=== PATIENT | male | born 1995 | race Caucasian/White ===

== ENCOUNTER 2017-07-30 21:41 | Emergency (ER) | payer BC, OTHER ==
--- NOTE | 2017-07-30 22:34 | XR ---
EXAMINATION TYPE: XR chest 2V DATE OF EXAM: 07/30/2017 COMPARISON: NONE HISTORY: Cough and congestion TECHNIQUE: Frontal and lateral views of the chest are obtained. FINDINGS: Heart and mediastinum are normal. Lungs are clear. Diaphragm is normal. Bony thorax appear s normal. IMPRESSION: Normal chest
--- NOTE | 2017-07-30 22:38 | ED ---
URI HPI - General Chief Complaint: Upper Respiratory Infection Stated Complaint: RAMON Time Seen by Provider: 07/30/17 22:00 Source: patient, RN notes reviewed, old records reviewed Mode of arrival: ambulatory Limitations: no limitations - History of Present Illness Initial Comments: This patient is a 22-year-old male presents emergency Department chief complaint of episodes of when he "forgets to breathe". Patient reports that he seems like he'll have an episode where he stops breathing and then his body will "kick in". Patient states that he also occasionally will have some difficulty swallowing however he states he has no sore throat. He states that the symptoms only last for a few minutes and then they will go away. Upon further questioning patient's mother and patient state that he does regularly smoke synthetic marijuana, K2. He thinks that his symptoms could be related to his smoking marijuana. Patient states he has a history of anxiety. He has never followed up with a counselor or on any medications for this. Patient states that he smokes 2 however relief of his anxiety. He states that he was concerned with these episodes of forgetting to breathe that he felt like he needed to come to the emergency department. He states he has no chest pain, at this time he denies any shortness of breath. - Related Data Home Medications Medication Instructions Recorded Confirmed No Known Home Medications [No 07/30/17 07/30/17 Known Home Medications] Allergies Allergy/AdvReac Type Severity Reaction Status Date / Time No Known Allergies Allergy Verified 07/30/17 22:23 Review of Systems ROS Statement: Those systems with pertinent positive or pertinent negative responses have been documented in the HPI. ROS Other: All systems not noted in ROS Statement are negative. Past Medical History Past Medical History: No Reported History History of Any Multi-Drug Resistant Organisms: None Reported Past Surgical History: Hernia Repair, Orthopedic Surgery Past Psychological History: No Psychological Hx Reported Smoking Status: Current some day smoker Past Alcohol Use History: Occasional Past Drug Use History: Marijuana General Exam - General Exam Comments Initial Comments: This is a 22 year old male, no distress. Limitations: no limitations General appearance: alert, in no apparent distress Head exam: Present: atraumatic, normocephalic, normal inspection Eye exam: Present: normal appearance, PERRL, EOMI. Absent: scleral icterus, conjunctival injection, periorbital swelling ENT exam: Present: normal exam, mucous membranes moist Neck exam: Present: normal inspection. Absent: tenderness, meningismus, lymphadenopathy Respiratory exam: Present: normal lung sounds bilaterally. Absent: respiratory distress, wheezes, rales, rhonchi, stridor Cardiovascular Exam: Present: regular rate, normal rhythm, normal heart sounds. Absent: systolic murmur, diastolic murmur, rubs, gallop, clicks Extremities exam: Present: normal inspection, full ROM, normal capillary refill. Absent: tenderness, pedal edema, joint swelling, calf tenderness Back exam: Present: normal inspection Neurological exam: Present: alert, oriented X3, CN II-XII intact Psychiatric exam: Present: normal affect, normal mood Skin exam: Present: warm, dry, intact, normal color. Absent: rash Course Vital Signs 07/30/17 07/30/17 21:50 23:22 Temperature 97.8 F 97.4 F L Pulse Rate 95 86 Respiratory 18 16 Rate Blood Pressure 144/91 142/89 O2 Sat by Pulse 100 98 Oximetry Medical Decision Making - Medical Decision Making This patient is a 22-year-old male presents emergency Department chief complaint of episodes of when he "forgets to breathe". Patient reports that he seems like he'll have an episode where he stops breathing and then his body will "kick in". Patient states that he also occasionally will have some difficulty swallowing however he states he has no sore throat. He states that the symptoms only last for a few minutes and then they will go away. Upon further questioning patient's mother and patient state that he does regularly smoke synthetic marijuana, K2. He denies any chest pain or SOB at this time. Patient lungs are clear, and heart has normal rhythm and no murmur. Patient informed of likely a psychosocial issue to drug use. Patient CXR is normal. Normal EKG. Patient offered to see psych services, and he refuses. He states he smokes for his anxiety. Dsicussed followin up with PCP and psychiatrist. All questions answered and return parameters discussed. - Lab Data Lab Results 07/30/17 Range/Units 22:38 Urine Opiates Screen Not Detected (NotDetected) Ur Oxycodone Screen Not Detected (NotDetected) Urine Methadone Screen Not Detected (NotDetected) Ur Propoxyphene Screen Not Detected (NotDetected) Ur Barbiturates Screen Not Detected (NotDetected) U Tricyclic Antidepress Not Detected (NotDetected) Ur Phencyclidine Scrn Not Detected (NotDetected) Ur Amphetamines Screen Not Detected (NotDetected) U Methamphetamines Scrn Not Detected (NotDetected) U Benzodiazepines Scrn Not Detected (NotDetected) Urine Cocaine Screen Not Detected (NotDetected) U Marijuana (THC) Screen Not Detected (NotDetected) 07/30/17 23:10 EKG shows normal sinus rhythm with sinus arrhythmia, normal EKG noted. Ventricular rate of 69 bpm. AK interval 170 ms. QRS duration 106 most seconds. QT QTc is 380/470 ms. No evidence of ST elevation or T-wave inversion. No signs of atrial or ventricular arrhythmias. - Radiology Data Radiology results: report reviewed CXR is normal. Disposition Clinical Impression: Dyspnea, History of marijuana use Disposition: HOME SELF-CARE Condition: Good Instructions: Dyspnea (ED) Additional Instructions: Patient should follow-up with primary care provider I also suggest outpatient counseling services. Return to emergency department if any alarming signs or symptoms occur. Referrals: Taina Diallo DO [Primary Care Provider] - 1-2 days Time of Disposition: 23:11
[2017-07-30 22:55] LABS: Amphetamine Screen,Urine Not Detected (NotDetected); Barbiturate Screen,Urine Not Detected (NotDetected); Benzodiazepines Screen,Urine Not Detected (NotDetected); Cocaine Screen,Urine Not Detected (NotDetected); Methadone Screen, Urine Not Detected (NotDetected); Opiate Screen,Urine Not Detected (NotDetected); Oxycodone Screen, Urine Not Detected (NotDetected); Phencyclidine Screen,Urine Not Detected (NotDetected); Tricyclic Antidepressant,Urine Not Detected (NotDetected); Urn Cannabinoid Scrn Not Detected (NotDetected)
[2017-07-30 23:24] VITALS: BP 142/89; PULSE 86; RESP 16; TEMP 97.4
== END 2017-07-30 23:24 | disposition home or self-care (01) ==
LOC: EC 21:41
DX: R06.00 Dyspnea, unspecified (principal); I49.8 Other specified cardiac arrhythmias; F12.90 Cannabis use, unspecified, uncomplicated; R13.10 Dysphagia, unspecified; F17.200 Nicotine dependence, unspecified, uncomplicated
CPT/HCPCS: 71046; 80306; 93005; 99284

== ENCOUNTER → 2017-11-12 | Outpatient (CLI) | payer BC, OTHER ==
--- NOTE | 2017-11-12 18:37 | CT ---
EXAMINATION TYPE: CT brain wo con DATE OF EXAM: 11/12/2017 COMPARISON: NONE HISTORY: Patient complains of hallucinations prior to falling asleep. CT DLP: 1121 mGycm. Automated Exposure Control for Dose Reduction was Utilized. TECHNIQUE: CT scan of the head is performed without contrast. FINDINGS: Ventricles of normal size. There is no mass effect nor midline shift. There is no sign of intracranial hemorrhage. The calvarium is intact. Impression new. Negative CT scan of the brain.
== END ==
LOC: RADCTMAIN 17:56
PROVIDERS: ATTEND Family Medicine
DX: G47.00 Insomnia, unspecified (principal); R44.3 Hallucinations, unspecified
CPT/HCPCS: 70450

== ENCOUNTER 2019-01-23 10:49 | Observation (INO) | payer BC, OTHER ==
--- NOTE | 2019-01-23 11:13 | ED ---
General Adult HPI - General Chief complaint: Psychiatric Symptoms Stated complaint: suicidal Time Seen by Provider: 01/23/19 11:01 Source: patient, family, RN notes reviewed Mode of arrival: ambulatory Limitations: no limitations - History of Present Illness Initial comments: Patient is a pleasant 23-year-old male presenting to the emergency Department with complaints of reported depression and suicidal thoughts. Patient states he is only here because his family make some come here. Patient denies being depressed or having suicidal thoughts. Patient denies making any suicidal statements. This is his statement to me and front of his family members. Shortly after this PATIENT'S brother and mother states that this is not correct. They state that he did make suicidal statements to his brother last night as well as to the mother this morning. Mother also adds that patient told nursing staff he wanted to jump off a high building. Patient states he drinks alcohol frequently secondary to have problems with air passage through his nose. Patient states it does seem to help him in the short-term. Patient has seen ENT for this previously. Patient does admit to striking his nose on a cabinet earlier because he was frustrated. Patient admits to having hallucinations at times. Patient states sometimes he hears voices coming from humidifier. Patient also sometimes sees faces when he looks outside. No new physical complaints. Patient does have a history of smoking spice urinary half ago and believe that caused some damage. No street drugs otherwise since that time. - Related Data Home Medications Medication Instructions Recorded Confirmed No Known Home Medications 07/30/17 01/23/19 Allergies Allergy/AdvReac Type Severity Reaction Status Date / Time No Known Allergies Allergy Verified 01/23/19 11:56 Review of Systems ROS Statement: Those systems with pertinent positive or pertinent negative responses have been documented in the HPI. ROS Other: All systems not noted in ROS Statement are negative. Constitutional: Denies: fever Eyes: Denies: eye pain ENT: Reports: congestion. Denies: ear pain Respiratory: Denies: cough Cardiovascular: Denies: chest pain Endocrine: Denies: fatigue Gastrointestinal: Denies: abdominal pain Genitourinary: Denies: dysuria Musculoskeletal: Denies: back pain Skin: Denies: rash Neurological: Denies: weakness Past Medical History Past Medical History: No Reported History History of Any Multi-Drug Resistant Organisms: None Reported Past Surgical History: Hernia Repair, Orthopedic Surgery Past Psychological History: No Psychological Hx Reported Smoking Status: Current some day smoker Past Alcohol Use History: Occasional Past Drug Use History: Heroin, Marijuana, Opiates General Exam Limitations: no limitations General appearance: alert, in no apparent distress Head exam: Present: atraumatic Eye exam: Present: normal appearance, PERRL, nystagmus ENT exam: Present: normal oropharynx, other (Nasal abrasion without tenderness or swelling.) Neck exam: Present: normal inspection. Absent: tenderness Respiratory exam: Present: normal lung sounds bilaterally Cardiovascular Exam: Present: regular rate, normal rhythm GI/Abdominal exam: Present: soft. Absent: tenderness Extremities exam: Present: normal inspection Neurological exam: Present: alert, CN II-XII intact. Absent: motor sensory deficit Expanded Neurological exam: Present: protecting the airway Speech: Present: fluid speech Cranial nerves: EOM's Intact: Normal Motor strength exam: RUE: 5, LUE: 5, RLE: 5, LLE: 5 Psychiatric exam: Present: normal affect Skin exam: Present: normal color, abrasion (Small nasal abrasion) Course Vital Signs 01/23/19 10:54 Temperature 98.5 F Pulse Rate 115 H Respiratory 20 Rate Blood Pressure 174/90 O2 Sat by Pulse 99 Oximetry Medical Decision Making - Medical Decision Making Alcohol level 316. Case was discussed with Dr. Cortes, covering for Dr. Diallo, who will admit. - Lab Data Lab Results 01/23/19 Range/Units 11:00 Urine Opiates Screen Not Detected (NotDetected) Ur Oxycodone Screen Not Detected (NotDetected) Urine Methadone Screen Not Detected (NotDetected) Ur Propoxyphene Screen Not Detected (NotDetected) Ur Barbiturates Screen Not Detected (NotDetected) U Tricyclic Antidepress Not Detected (NotDetected) Ur Phencyclidine Scrn Not Detected (NotDetected) Ur Amphetamines Screen Not Detected (NotDetected) U Methamphetamines Scrn Not Detected (NotDetected) U Benzodiazepines Scrn Not Detected (NotDetected) Urine Cocaine Screen Not Detected (NotDetected) U Marijuana (THC) Screen Detected H (NotDetected) Disposition Clinical Impression: Depression, Suicidal ideation, Alcohol intoxication Disposition: ADMITTED IP TO THIS HOSP Is patient prescribed a controlled substance at d/c from ED?: No Referrals: Taina Diallo DO [Primary Care Provider] - 1-2 days Decision Time: 12:23
[2019-01-23 11:38] LABS: Amphetamine Screen,Urine Not Detected (NotDetected); Barbiturate Screen,Urine Not Detected (NotDetected); Benzodiazepines Screen,Urine Not Detected (NotDetected); Cocaine Screen,Urine Not Detected (NotDetected); Methadone Screen, Urine Not Detected (NotDetected); Opiate Screen,Urine Not Detected (NotDetected); Oxycodone Screen, Urine Not Detected (NotDetected); Phencyclidine Screen,Urine Not Detected (NotDetected); Tricyclic Antidepressant,Urine Not Detected (NotDetected); Urn Cannabinoid Scrn Detected (NotDetected)
[2019-01-23] MEDS ORDERED: NALOXONE 0.4 MG/ML 1 ML VIAL IV PRN (12:23)
[2019-01-23] MEDS ORDERED: LORazepam 2 MG/ML INJ IV PRN ×3 (12:29)
[2019-01-23] MEDS ORDERED: LORazepam 1 MG TAB PO STA (12:29)
[2019-01-23] MEDS ORDERED: LORazepam 2 MG/ML INJ IM STA (12:33)
[2019-01-23] MEDS ORDERED: ZIPRASIDONE 20 MG VIAL IM STA (12:43)
--- NOTE | 2019-01-23 12:53 | ED ---
Medical Decision Making - Lab Data Lab Results 01/23/19 Range/Units 11:00 Urine Opiates Screen Not Detected (NotDetected) Ur Oxycodone Screen Not Detected (NotDetected) Urine Methadone Screen Not Detected (NotDetected) Ur Propoxyphene Screen Not Detected (NotDetected) Ur Barbiturates Screen Not Detected (NotDetected) U Tricyclic Antidepress Not Detected (NotDetected) Ur Phencyclidine Scrn Not Detected (NotDetected) Ur Amphetamines Screen Not Detected (NotDetected) U Methamphetamines Scrn Not Detected (NotDetected) U Benzodiazepines Scrn Not Detected (NotDetected) Urine Cocaine Screen Not Detected (NotDetected) U Marijuana (THC) Screen Detected H (NotDetected) Disposition Clinical Impression: Depression, Suicidal ideation, Alcohol intoxication Disposition: ADMITTED IP TO THIS [facility] Is patient prescribed a controlled substance at d/c from ED?: No Procedures - Restraint - Face to Face Restraint Occurrence 1 Patient's Immediate Situation: Endangers self safety, Endangers others' safety, Endangers staff safety, Violent behavior Patient's Reaction to the Intervention: Fearful Patient's Medical & Behavioral Condition: Awake, Alert Need to Continue or Terminate Restraint or Seclusion: Continue Face to Face Eval of Restraint Date: 01/23/19 Face to Face Eval of Restraint Time: 12:53
[2019-01-23 13:09] LABS: Basophils # (A) 0.1 k/uL (0-0.2); Basophils % (A) 1 %; Eosinophils # (A) 0.1 k/uL (0-0.7); Eosinophils % (A) 1 %; HCT 50.6 % (39.0-53.0); HGB 16.6 gm/dL (13.0-17.5); Lymphocytes # (A) 4.1 k/uL (1.0-4.8); Lymphocytes % (A) 27 %; MCHC 32.9 g/dL (31.0-37.0); MCV 91.2 fL (80.0-100.0); Mean Platelet Volume 8.7; Monocytes # (A) 0.6 k/uL (0-1.0); Monocytes % (A) 4 %; Neutrophils # (A) 10.1 k/uL (1.3-7.7); Neutrophils % (A) 65 %; Platelet Count 307 k/uL (150-450); RBC 5.55 m/uL (4.30-5.90); WBC 15.5 k/uL (3.8-10.6)
[2019-01-23 13:19] LABS: ALT 308 U/L (21-72); AST 182 U/L (17-59); African American GFR (CKD) >90 (>60 ml/min/1.73 sqM); Albumin 5.4 g/dL (3.5-5.0); Alkaline Phosphatase 91 U/L (38-126); Anion Gap 28 mmol/L; Blood Urea Nitrogen 13 mg/dL (9-20); Calcium 9.3 mg/dL (8.4-10.2); Carbon Dioxide 14 mmol/L (22-30); Chloride 102 mmol/L (98-107); Glucose 95 mg/dL (74-99); Potassium 3.9 mmol/L (3.5-5.1); Sodium 144 mmol/L (137-145); Total Bilirubin 0.5 mg/dL (0.2-1.3); Total Protein 9.2 g/dL (6.3-8.2)
[2019-01-23] MEDS: THIAMINE 100 MG TAB PO SCH ×2 (19:07→19:08)
[2019-01-24] MEDS: THIAMINE 100 MG TAB PO SCH (07:48)
--- NOTE | 2019-01-24 13:38 | P.HPIM ---
History of Present Illness H&P Date: 01/23/19 Chief Complaint: suicidal Jose Francisco Ballard is a 23 yo M who is brought in to the ED today after repeatedly banging his head against a window at home and voicing thoughts about ending his life. Pt is currently sedated and asleep, history per chart review and mother at bedside. Mother states that pt told his brother that he didn't see the purpose in living and wanted to end his life. He became frustrated and had been drinking heavily so started to bang his head against a cabinet and window. He is a frequent drinker and mom bribed him with vodka to come in to the hospital. Pt has no diagnosed psychiatric history but mom states that is because he won't go to a doctor to discuss and he has always been very withdrawn and expressed that he feels his life is meaningless. Pt did endorse hallucinations to nursing staff in the ED. On arrival vitals stable, UDS positive for THC and blood alcohol 300. Pt did become agitated upon being told he was being kept in the hospital and required one dose of geodon. Review of Systems ROS unobtainable: due to mental status Past Medical History Past Medical History: No Reported History History of Any Multi-Drug Resistant Organisms: None Reported Past Surgical History: Hernia Repair, Orthopedic Surgery Additional Past Surgical History / Comment(s): right arm surgery. hernia repair as a child. undescended testicle as a child Past Anesthesia/Blood Transfusion Reactions: No Reported Reaction Past Psychological History: No Psychological Hx Reported Smoking Status: Never smoker Past Alcohol Use History: Heavy Additional Past Alcohol Use History / Comment(s): has history of poly substance abuse. per Past Drug Use History: Heroin, Marijuana, Opiates - Past Family History Mother Family Medical History: Diabetes Mellitus Additional Family Medical History / Comment(s): family history on maternal side of diabetes Medications and Allergies Home Medications Medication Instructions Recorded Confirmed Type No Known Home Medications 07/30/17 01/23/19 History Allergies Allergy/AdvReac Type Severity Reaction Status Date / Time No Known Allergies Allergy Verified 01/23/19 11:56 Physical Exam Vitals: Vital Signs Temp Pulse Pulse Resp BP BP Pulse Ox 01/24/19 05:45 98.1 F 110 H 20 155/89 96 01/23/19 20:30 98.8 F 121 H 16 120/48 94 L 01/23/19 15:30 97.5 F L 97 18 103/71 97 01/23/19 14:35 98.5 F 115 H 20 174/90 99 Intake and Output 01/23/19 01/24/19 01/24/19 22:59 06:59 14:59 Other: Voiding Method Toilet # Voids 0 2 General: well nourished, well developed, NAD. Vitals reviewed Eyes: PERRL, EOMI, conjunctiva normal HENT: normocephalic, mucus membranes moist Neck: supple, no JVD Lungs: normal respiratory effort, no wheezes or rales CV: Regular rate and rhythm, no murmur. Peripheral pulses 2+ Abdomen: soft, nondistended, no organomegaly Lymph: no cervical or axillary LAD Skin: warm and dry. Neuro: sedated Results CBC & Chem 7: 01/23/19 12:56 01/23/19 12:56 Labs: Abnormal Lab Results - Last 24 Hours (Table) 01/23/19 01/23/19 Range/Units 12:56 12:56 WBC 15.5 H (3.8-10.6) k/uL Neutrophils # 10.1 H (1.3-7.7) k/uL Carbon Dioxide 14 L (22-30) mmol/L AST 182 H (17-59) U/L ALT 308 H (21-72) U/L Total Protein 9.2 H (6.3-8.2) g/dL Albumin 5.4 H (3.5-5.0) g/dL Thrombosis Risk Factor Assmnt - Choose All That Apply Any of the Below Risk Factors Present?: No Other Risk Factors: No Other congenital or acquired thrombophilia - If yes, enter type in comment: No Thrombosis Risk Factor Assessment Level: Very Low Risk Assessment and Plan (1) Elevated LFTs Current Visit: Yes Status: Acute Code(s): R94.5 - ABNORMAL RESULTS OF LIVER FUNCTION STUDIES SNOMED Code(s): 925340240 (2) Alcohol intoxication Current Visit: Yes Status: Acute Code(s): F10.929 - ALCOHOL USE, UNSPECIFIED WITH INTOXICATION, UNSPECIFIED SNOMED Code(s): 15051849 (3) Suicidal ideation Current Visit: Yes Status: Acute Code(s): R45.851 - SUICIDAL IDEATIONS SNOMED Code(s): 6103179 Plan: 1. Suicidal ideation. Admit to medicine with current intoxication. Psych consult to determine need for inpatient treatment 2. Acute alcohol intoxication. [facility] protocol. Thiamine
--- NOTE | 2019-01-24 13:41 | P.PN ---
Subjective Progress Note Date: 01/24/19 Jose Francisco Ballard is a 23 yo M who is brought in to the ED today after repeatedly banging his head against a window at home and voicing thoughts about ending his life. Pt is currently sedated and asleep, history per chart review and mother at bedside. Mother states that pt told his brother that he didn't see the purpose in living and wanted to end his life. He became frustrated and had been drinking heavily so started to bang his head against a cabinet and window. He is a frequent drinker and mom bribed him with vodka to come in to the hospital. Pt has no diagnosed psychiatric history but mom states that is because he won't go to a doctor to discuss and he has always been very withdrawn and expressed that he feels his life is meaningless. Pt did endorse hallucinations to nursing staff in the ED. On arrival vitals stable, UDS positive for THC and blood alcohol 300. Pt did become agitated upon being told he was being kept in the hospital and required one dose of geodon. 01/24. Pt is awake and alert today and he currently denies suicidal ideation. He states he remembers the events of yesterday but is minimizing it and states that he is not depressed and does not experience hallucinations. He denies frequent alcohol use and states he only has a few drinks on occasion. He would like to leave the hospital. Objective - Vital Signs Vital signs: Vital Signs Temp 98.1 F 01/24/19 05:45 Pulse 110 H 01/24/19 05:45 Resp 20 01/24/19 05:45 BP 155/89 01/24/19 05:45 Pulse Ox 96 01/24/19 05:45 Intake & Output 01/23/19 01/24/19 01/24/19 18:59 06:59 18:59 Weight 88.451 kg Other: Voiding Method Toilet # Voids 2 - Exam General: well nourished, well developed, NAD. Vitals reviewed Lungs: normal respiratory effort, no wheezes or rales CV: Regular rate and rhythm, no murmur. Peripheral pulses 2+ Neuro: A&Ox3. Anxious, flat affect - Labs CBC & Chem 7: 01/23/19 12:56 01/23/19 12:56 Assessment and Plan (1) Elevated LFTs Current Visit: Yes Status: Acute Code(s): R94.5 - ABNORMAL RESULTS OF LIVER FUNCTION STUDIES SNOMED Code(s): 606159748 (2) Alcohol intoxication Current Visit: Yes Status: Acute Code(s): F10.929 - ALCOHOL USE, UNSPECIFIED WITH INTOXICATION, UNSPECIFIED SNOMED Code(s): 68023724 (3) Suicidal ideation Current Visit: Yes Status: Acute Code(s): R45.851 - SUICIDAL IDEATIONS SNOMED Code(s): 5595942 Plan: 1. Suicidal ideation. Await psych evaluation. He is medically stable for discharge 2. Acute alcohol intoxication. Resolved. [facility] protocol
--- NOTE | 2019-01-24 15:39 | P.DS ---
Providers Date of admission: 01/23/19 12:23 Expected date of discharge: 01/24/19 Attending physician: Shay Tom MD Consults: 01/23/19 12:24 Consult Physician Urgent Consulting Provider: Ray Duenas Consult Reason/Comments: Depression and suicidal ideation Do you want consulting provider notified?: Yes Primary care physician: Taina Diallo - Discharge Diagnosis(es) (1) Elevated LFTs Status: Acute (2) Alcohol intoxication Status: Acute (3) Suicidal ideation Status: Acute Hospital Course: Jose Francisco Ballard is a 23 yo M who is brought in to the ED today after repeatedly banging his head against a window at home and voicing thoughts about ending his life. Pt is currently sedated and asleep, history per chart review and mother at bedside. Mother states that pt told his brother that he didn't see the purpose in living and wanted to end his life. He became frustrated and had been drinking heavily so started to bang his head against a cabinet and window. He is a frequent drinker and mom bribed him with vodka to come in to the hospital. Pt has no diagnosed psychiatric history but mom states that is because he won't go to a doctor to discuss and he has always been very withdrawn and expressed that he feels his life is meaningless. Pt did endorse hallucinations to nursing staff in the ED. On arrival vitals stable, UDS positive for THC and blood alcohol 300. Pt did become agitated upon being told he was being kept in the hospital and required one dose of geodon. 01/24. Pt is awake and alert today and he currently denies suicidal ideation. He states he remembers the events of yesterday but is minimizing it and states that he is not depressed and does not experience hallucinations. He denies frequent alcohol use and states he only has a few drinks on occasion. He would like to leave the hospital. Patient was evaluated by Psychiatry and is not a candidate for inpatient psych. He is discharged home and recommended to schedule a follow up appointment with his PCP to discuss his mood further. Pt voiced understanding. Patient Condition at Discharge: Stable Plan - Discharge Summary Discharge Rx Participant: No New Discharge Prescriptions: Continue No Known Home Medications Discharge Medication List No Known Home Medications 07/30/17 [History] Follow up Appointment(s)/Referral(s): Taina Diallo DO [Primary Care Provider] - 1-2 days (please call office to set up follow up appointment) Patient Instructions/Handouts: Depression (DC), Alcohol Intoxication (DC) Discharge Disposition: HOME SELF-CARE
[2019-01-24 16:03] VITALS: BP 158/84; PULSE 100; RESP 14; TEMP 97.9
== END 2019-01-24 15:34 | disposition home or self-care (01) ==
LOC: EC 10:49 → 4MS4W 12:23
PROVIDERS: ADMIT Family Medicine; ATTEND Family Medicine
DX: R45.851 Suicidal ideations (principal); F10.129 Alcohol abuse with intoxication, unspecified; F32.9 Major depressive disorder, single episode, unspecified; R44.3 Hallucinations, unspecified; S00.31XA Abrasion of nose, initial encounter; X83.8XXA Intentional self-harm by other specified means, initial encounter; F17.200 Nicotine dependence, unspecified, uncomplicated; Y90.8 Blood alcohol level of 240 mg/100 ml or more; R45.1 Restlessness and agitation; R94.5 Abnormal results of liver function studies; F12.90 Cannabis use, unspecified, uncomplicated; Z87.898 Personal history of other specified conditions; Z78.1 Physical restraint status; Z83.3 Family history of diabetes mellitus
CPT/HCPCS: 96374; 82075; 96372; 99285; 80053; 85025; 80306; G0378 ×2; J2060; J3486

== ENCOUNTER 2019-05-18 22:56 | Observation (INO) | payer BC, OTHER ==
[2019-05-19] MEDS ORDERED: SODIUM CHLORIDE 0.9% 1,000 ML IV STA (00:25)
[2019-05-19 00:29] LABS: Amphetamine Screen,Urine Not Detected (NotDetected); Barbiturate Screen,Urine Not Detected (NotDetected); Benzodiazepines Screen,Urine Not Detected (NotDetected); Cocaine Screen,Urine Not Detected (NotDetected); Methadone Screen, Urine Not Detected (NotDetected); Opiate Screen,Urine Not Detected (NotDetected); Oxycodone Screen, Urine Not Detected (NotDetected); Phencyclidine Screen,Urine Not Detected (NotDetected); Tricyclic Antidepressant,Urine Not Detected (NotDetected); Urn Cannabinoid Scrn Detected (NotDetected)
--- NOTE | 2019-05-19 00:36 | ED ---
Psych HPI - General Source: patient, police Mode of arrival: ambulatory <Norma Young - Last Filed: 05/19/19 02:28> <Cristine Orantes - Last Filed: 05/21/19 04:48> - General Chief Complaint: Psychiatric Symptoms Stated Complaint: ETOH/Mental Health Petition Time Seen by Provider: 05/19/19 00:08 - History of Present Illness Initial Comments: 24-year-old male patient presents to the emergency department today for evaluation of alcohol intoxication and suicidal ideation. Patient was found stumbling around town. He was reporting hallucinations. Mother is present and did file petitioned. She please he is suicidal. States he is fully drinking himself to . States he drinks at least a fifth of vodka per day. States that he does not want to go to rehab. He did have a fall earlier at home. He did report hitting his head. He is unsure if he lost consciousness. He is also reporting right ankle pain and swelling with this. Patient denies any headache, neck pain, back pain, chest pain, shortness of breath, dizziness, weakness, abdominal pain, nausea, vomiting, or difficulties with bowel movements or urination. (Norma Young) - Related Data Home Medications Medication Instructions Recorded Confirmed Disulfiram [Antabuse] 250 mg PO HS 05/19/19 05/19/19 Gabapentin [Neurontin] 100 mg PO HS PRN 05/19/19 05/19/19 Previous Rx's Medication Instructions Recorded Folic Acid 1 mg PO DAILY #15 tablet 05/20/19 Ibuprofen [Motrin] 400 mg PO Q6HR PRN #10 tab 05/20/19 Multivitamins, Thera [Multivitamin] 1 tab PO DAILY #15 tablet 05/20/19 Thiamine [Vitamin B-1] 100 mg PO DAILY #15 tablet 05/20/19 Allergies Allergy/AdvReac Type Severity Reaction Status Date / Time No Known Allergies Allergy Verified 05/19/19 09:06 Review of Systems ROS Other: All systems not noted in ROS Statement are negative. <Norma Young - Last Filed: 05/19/19 02:28> ROS Other: All systems not noted in ROS Statement are negative. <Cristine Orantes - Last Filed: 05/21/19 04:48> ROS Statement: Those systems with pertinent positive or pertinent negative responses have been documented in the HPI. Past Medical History Past Medical History: No Reported History History of Any Multi-Drug Resistant Organisms: None Reported Past Surgical History: Hernia Repair, Orthopedic Surgery Additional Past Surgical History / Comment(s): right arm surgery. hernia repair as a child. undescended testicle as a child Past Anesthesia/Blood Transfusion Reactions: No Reported Reaction Past Psychological History: No Psychological Hx Reported Smoking Status: Never smoker Past Alcohol Use History: Heavy Past Drug Use History: Heroin, Marijuana, Opiates - Past Family History Mother Family Medical History: Diabetes Mellitus Additional Family Medical History / Comment(s): family history on maternal side of diabetes <Norma Young Sravan - Last Filed: 05/19/19 02:28> General Exam Limitations: no limitations General appearance: alert, in no apparent distress, other (Physical well- developed, well-nourished adult male patient in no acute distress. Vital signs upon presentation are temperature 98.7F, pulse 125, respirations 20, blood pressure 155/109, pulse ox 97% on room air.) Head exam: Present: other (There is an abrasion noted to the left forehead.) Eye exam: Present: normal appearance, PERRL, EOMI. Absent: scleral icterus, conjunctival injection, periorbital swelling ENT exam: Present: normal exam, normal oropharynx, mucous membranes moist Neck exam: Present: normal inspection, full ROM, other (Nontender, no step-off, no deformity to firm midline palpation of the posterior cervical spine. Full range of motion without pain or limitation.). Absent: tenderness, meningismus, lymphadenopathy Respiratory exam: Present: normal lung sounds bilaterally. Absent: respiratory distress, wheezes, rales, rhonchi, stridor Cardiovascular Exam: Present: regular rate, normal rhythm, normal heart sounds. Absent: systolic murmur, diastolic murmur, rubs, gallop, clicks GI/Abdominal exam: Present: soft, normal bowel sounds. Absent: distended, tenderness, guarding, rebound, rigid Extremities exam: Present: full ROM, normal capillary refill, other (Or soft tissue swelling surrounding the right lateral malleolus. Skin is otherwise pink, warm, dry. Cap refills less than 3 seconds. Pedal pulses 2+ and equal bilaterally.). Absent: tenderness, pedal edema, joint swelling, calf tenderness Back exam: Present: normal inspection. Absent: vertebral tenderness Neurological exam: Present: alert, oriented X3, CN II-XII intact, other (Nontender, no step-off, no deformity to firm midline palpation of the thoracic and lumbar vertebrae. Full range of motion without pain or limitation.) Psychiatric exam: Present: normal affect, normal mood Skin exam: Present: warm, dry, intact, normal color. Absent: rash <Norma Young - Last Filed: 05/19/19 02:28> Course Vital Signs 05/18/19 05/19/19 23:15 03:11 Temperature 98.7 F Pulse Rate 125 H 110 H Respiratory 20 18 Rate Blood Pressure 155/109 146/73 O2 Sat by Pulse 97 97 Oximetry Medical Decision Making - Lab Data Result diagrams: 05/19/19 00:44 05/19/19 00:44 - Radiology Data Radiology results: report reviewed, image reviewed <Norma Young - Last Filed: 05/19/19 02:28> - Lab Data Result diagrams: 05/19/19 00:44 05/19/19 00:44 <Cristine Orantes - Last Filed: 05/21/19 04:48> - Medical Decision Making 24 year-old male patient presented to the emergency department brought by police for further evaluation of possible suicidal ideation and hallucinations. Patient was found to be intoxicated. Labs reviewed and are relatively unremarkable. He did experiencing a fall earlier in the day, right ankle was x- rayed showed no acute fracture, most likely a sprain. We'll apply ankle stirrup splint. CT of the brain was obtained and was negative per He'll be admitted for intoxication and alcohol withdrawal. He is petitioned. He'll be evaluated by psychiatry tomorrow when sober. (Norma Young) Patient care was discussed with admitting physician Dr. Tom who agrees with plan for admission and evaluation by psychiatry with the patient is sober. (Cristine Orantes) - Lab Data Lab Results 05/18/19 05/18/19 05/19/19 Range/Units 23:31 23:31 00:44 WBC 8.0 (3.8-10.6) k/uL RBC 5.35 (4.30-5.90) m/uL Hgb 16.4 (13.0-17.5) gm/dL Hct 47.7 (39.0-53.0) % MCV 89.3 (80.0-100.0) fL MCH 30.7 (25.0-35.0) pg MCHC 34.4 (31.0-37.0) g/dL RDW 13.6 (11.5-15.5) % Plt Count 291 (150-450) k/uL Neutrophils % 69 % Lymphocytes % 18 % Monocytes % 9 % Eosinophils % 0 % Basophils % 0 % Neutrophils # 5.6 (1.3-7.7) k/uL Lymphocytes # 1.4 (1.0-4.8) k/uL Monocytes # 0.7 (0-1.0) k/uL Eosinophils # 0.0 (0-0.7) k/uL Basophils # 0.0 (0-0.2) k/uL PT (9.0-12.0) sec INR (<1.2) Sodium (137-145) mmol/L Potassium (3.5-5.1) mmol/L Chloride (98-107) mmol/L Carbon Dioxide (22-30) mmol/L Anion Gap mmol/L BUN (9-20) mg/dL Creatinine (0.66-1.25) mg/dL Est GFR (CKD-EPI)AfAm (>60 ml/min/1.73 sqM) Est GFR (CKD-EPI)NonAf (>60 ml/min/1.73 sqM) Glucose (74-99) mg/dL Calcium (8.4-10.2) mg/dL Phosphorus (2.5-4.5) mg/dL Magnesium (1.6-2.3) mg/dL Total Bilirubin (0.2-1.3) mg/dL AST (17-59) U/L ALT (4-49) U/L Alkaline Phosphatase (38-126) U/L Total Protein (6.3-8.2) g/dL Albumin (3.5-5.0) g/dL Urine Color Yellow Urine Appearance Clear (Clear) Urine pH 6.5 (5.0-8.0) Ur Specific [place] 1.025 (1.001-1.035) Urine Protein 4+ H (Negative) Urine Glucose (UA) Negative (Negative) Urine Ketones 1+ H (Negative) Urine Blood Moderate H (Negative) Urine Nitrite Negative (Negative) Urine Bilirubin Negative (Negative) Urine Urobilinogen <2.0 (<2.0) mg/dL Ur Leukocyte Esterase Negative (Negative) Urine RBC 4 (0-5) /hpf Urine WBC 3 (0-5) /hpf Ur Squamous Epith Cells <1 (0-4) /hpf Hyaline Casts 16 H (0-2) /lpf Granular Casts 21 (0) /lpf Urine Mucus Many H (None) /hpf Urine Opiates Screen Not Detected (NotDetected) Ur Oxycodone Screen Not Detected (NotDetected) Urine Methadone Screen Not Detected (NotDetected) Ur Propoxyphene Screen Not Detected (NotDetected) Ur Barbiturates Screen Not Detected (NotDetected) U Tricyclic Antidepress Not Detected (NotDetected) Ur Phencyclidine Scrn Not Detected (NotDetected) Ur Amphetamines Screen Not Detected (NotDetected) U Methamphetamines Scrn Not Detected (NotDetected) U Benzodiazepines Scrn Not Detected (NotDetected) Urine Cocaine Screen Not Detected (NotDetected) U Marijuana (THC) Screen Detected H (NotDetected) Serum Alcohol mg/dL 05/19/19 05/19/19 Range/Units 00:44 01:13 WBC (3.8-10.6) k/uL RBC (4.30-5.90) m/uL Hgb (13.0-17.5) gm/dL Hct (39.0-53.0) % MCV (80.0-100.0) fL MCH (25.0-35.0) pg MCHC (31.0-37.0) g/dL RDW (11.5-15.5) % Plt Count (150-450) k/uL Neutrophils % % Lymphocytes % % Monocytes % % Eosinophils % % Basophils % % Neutrophils # (1.3-7.7) k/uL Lymphocytes # (1.0-4.8) k/uL Monocytes # (0-1.0) k/uL Eosinophils # (0-0.7) k/uL Basophils # (0-0.2) k/uL PT 11.0 (9.0-12.0) sec INR 1.0 (<1.2) Sodium 144 (137-145) mmol/L Potassium 4.3 (3.5-5.1) mmol/L Chloride 104 (98-107) mmol/L Carbon Dioxide 23 (22-30) mmol/L Anion Gap 17 mmol/L BUN 9 (9-20) mg/dL Creatinine 0.91 (0.66-1.25) mg/dL Est GFR (CKD-EPI)AfAm >90 (>60 ml/min/1.73 sqM) Est GFR (CKD-EPI)NonAf >90 (>60 ml/min/1.73 sqM) Glucose 95 (74-99) mg/dL Calcium 9.3 (8.4-10.2) mg/dL Phosphorus 2.6 (2.5-4.5) mg/dL Magnesium 1.8 (1.6-2.3) mg/dL Total Bilirubin 0.5 (0.2-1.3) mg/dL AST 349 H (17-59) U/L ALT 527 H (4-49) U/L Alkaline Phosphatase 106 (38-126) U/L Total Protein 8.3 H (6.3-8.2) g/dL Albumin 5.0 (3.5-5.0) g/dL Urine Color Urine Appearance (Clear) Urine pH (5.0-8.0) Ur Specific [place] (1.001-1.035) Urine Protein (Negative) Urine Glucose (UA) (Negative) Urine Ketones (Negative) Urine Blood (Negative) Urine Nitrite (Negative) Urine Bilirubin (Negative) Urine Urobilinogen (<2.0) mg/dL Ur Leukocyte Esterase (Negative) Urine RBC (0-5) /hpf Urine WBC (0-5) /hpf Ur Squamous Epith Cells (0-4) /hpf Hyaline Casts (0-2) /lpf Granular Casts (0) /lpf Urine Mucus (None) /hpf Urine Opiates Screen (NotDetected) Ur Oxycodone Screen (NotDetected) Urine Methadone Screen (NotDetected) Ur Propoxyphene Screen (NotDetected) Ur Barbiturates Screen (NotDetected) U Tricyclic Antidepress (NotDetected) Ur Phencyclidine Scrn (NotDetected) Ur Amphetamines Screen (NotDetected) U Methamphetamines Scrn (NotDetected) U Benzodiazepines Scrn (NotDetected) Urine Cocaine Screen (NotDetected) U Marijuana (THC) Screen (NotDetected) Serum Alcohol 351 H* mg/dL Disposition Decision to Admit Reason: Admit from EC Decision Date: 05/19/19 Decision Time: 02:29 <Norma Young - Last Filed: 05/19/19 02:28> <Cristine Orantes - Last Filed: 05/21/19 04:48> Clinical Impression: Alcohol intoxication, Right ankle sprain, Evaluation by psychiatric service required Disposition: ADMITTED IP TO THIS [facility] Condition: Serious
[2019-05-19 01:11] LABS: Basophils % (A) 0 %; Eosinophils % (A) 0 %; HCT 47.7 % (39.0-53.0); HGB 16.4 gm/dL (13.0-17.5); Lymphocytes # (A) 1.4 k/uL (1.0-4.8); Lymphocytes % (A) 18 %; MCH 30.7 pg (25.0-35.0); MCHC 34.4 g/dL (31.0-37.0); MCV 89.3 fL (80.0-100.0); Mean Platelet Volume 9.1; Monocytes # (A) 0.7 k/uL (0-1.0); Monocytes % (A) 9 %; Neutrophils # (A) 5.6 k/uL (1.3-7.7); Neutrophils % (A) 69 %; Platelet Count 291 k/uL (150-450); RBC 5.35 m/uL (4.30-5.90); RDW 13.6 % (11.5-15.5)
--- NOTE | 2019-05-19 01:13 | CT ---
EXAMINATION TYPE: CT brain wo con DATE OF EXAM: 05/19/2019 COMPARISON: 11/03/2018 HISTORY: etoh Hallucination. CT DLP: 1114.4 mGycm Automated exposure control for dose reduction was used. Ventricles have normal size. There is no mass effect nor midline shift. There is no sign of intracran ial hemorrhage. Calvarium is intact. IMPRESSION: Normal unenhanced head CT scan. No change.
--- NOTE | 2019-05-19 01:15 | XR ---
EXAMINATION TYPE: XR ankle complete RT DATE OF EXAM: 05/19/2019 COMPARISON: NONE HISTORY: Fall. Pain. TECHNIQUE: 3 views There is soft tissue swelling around the lateral malleolus. Ankle mortise is anatomic. I see no fract ure nor dislocation. Joint spaces are normal. IMPRESSION: Soft tissue swelling. No fracture seen.
[2019-05-19 01:22] LABS: ALT 527 U/L (4-49); AST 349 U/L (17-59); African American GFR (CKD) >90 (>60 ml/min/1.73 sqM); Alkaline Phosphatase 106 U/L (38-126); Anion Gap 17 mmol/L; Blood Urea Nitrogen 9 mg/dL (9-20); Calcium 9.3 mg/dL (8.4-10.2); Carbon Dioxide 23 mmol/L (22-30); Chloride 104 mmol/L (98-107); Glucose 95 mg/dL (74-99); Magnesium 1.8 mg/dL (1.6-2.3); Non-African American GFR(CKD) >90 (>60 ml/min/1.73 sqM); Phosphorus 2.6 mg/dL (2.5-4.5); Potassium 4.3 mmol/L (3.5-5.1); Sodium 144 mmol/L (137-145); Total Bilirubin 0.5 mg/dL (0.2-1.3); Total Protein 8.3 g/dL (6.3-8.2)
[2019-05-19 01:33] LABS: Alcohol 351 mg/dL
[2019-05-19] MEDS ORDERED: NALOXONE 0.4 MG/ML 1 ML VIAL IV PRN (01:48)
[2019-05-19] MEDS ORDERED: IBUPROFEN 400 MG TAB PO PRN (01:48)
[2019-05-19] MEDS ORDERED: THIAMINE 100 MG/ML 2 ML VIAL IM STA (01:51)
[2019-05-19] MEDS ORDERED: LORazepam 2 MG/ML INJ IV PRN ×2 (01:51)
[2019-05-19] MEDS: 1: MVI, ADULT NO.4 WITH VIT K 10 ML, THIAMINE 100 MG, FOLIC ACID 1 MG in SODIUM CHLORIDE IV SCH ×12 (02:29→23:36)
[2019-05-19] MEDS: ONDANSETRON 4 MG/2 ML VIAL IVP PRN ×2 (02:30→13:30)
[2019-05-19 04:26] LABS: Appearance,Urine Clear (Clear); Bilirubin,Urine Negative (Negative); Blood,Urine Moderate (Negative); Color,Urine Yellow; Glucose,Urine (UA) Negative (Negative); Granular Casts,Urine 21 /lpf (0); Hyaline Casts,Urine 16 /lpf (0-2); Ketones,Urine 1+ (Negative); Leukocyte Esterase,Urine Negative (Negative); Mucus,Urine Many /hpf; Nitrite,Urine Negative (Negative); PH, Urine 6.5 (5.0-8.0); Protein,Urine 4+ (Negative); RBC,Urine 4 /hpf (0-5); Specific Gravity,Urine 1.025 (1.001-1.035); Squamous Epithelial Cell,Urine <1 /hpf (0-4); Urobilinogen,Urine <2.0 mg/dL (<2.0); WBC,Urine 3 /hpf (0-5)
[2019-05-19] MEDS: LORazepam 2 MG/ML INJ IV PRN ×3 (05:08→22:34)
[2019-05-19] MEDS: THIAMINE 100 MG TAB PO SCH (18:05)
--- NOTE | 2019-05-20 00:38 | P.HPIM ---
History of Present Illness H&P Date: 05/19/19 Chief Complaint: intoxicated Jose Francisco Ballard is a 24 yo M with hx alcoholism, anxiety who was brought to the ED by police last night after he was found wandering around town drunk. He states he remembers little of last night. He has continued to drink a fifth of vodka daily for approximately 1 year and less heavily before then. He states he has been having alcohol withdrawal symptoms every day including nausea and vomiting, tremor and diaphoresis in mornings and difficulty sleeping. In the ED his alcohol level was 351, AST 350 ALT 530. Pt's mother did express concern that pt was suicidal. Currently, he denies suicidal ideations and denies depression. He demonstrates poor insight into the dangers of his drinking and states he does not need to go to rehab. Review of Systems All systems: negative Constitutional: Reports malaise, Reports night sweats, Reports sweats, Denies chills, Denies fever Eyes: denies blurred vision, denies pain Ears, nose, mouth and throat: Denies headache, Denies sore throat Cardiovascular: Denies chest pain, Denies shortness of breath Respiratory: Denies cough Gastrointestinal: Reports abdominal pain, Reports nausea, Reports vomiting, Denies diarrhea Musculoskeletal: Denies myalgias Integumentary: Denies pruritus, Denies rash Neurological: Reports tremors, Reports weakness, Denies numbness Psychiatric: Denies anxiety, Denies depression Endocrine: Denies fatigue, Denies weight change Past Medical History Past Medical History: No Reported History History of Any Multi-Drug Resistant Organisms: None Reported Past Surgical History: Hernia Repair, Orthopedic Surgery Additional Past Surgical History / Comment(s): right arm surgery. hernia repair as a child. undescended testicle as a child Past Anesthesia/Blood Transfusion Reactions: No Reported Reaction Past Psychological History: No Psychological Hx Reported Smoking Status: Never smoker Past Alcohol Use History: Heavy Additional Past Alcohol Use History / Comment(s): has history of poly substance abuse. per Past Drug Use History: Heroin, Marijuana, Opiates - Past Family History Mother Family Medical History: Diabetes Mellitus Additional Family Medical History / Comment(s): family history on maternal side of diabetes Medications and Allergies Home Medications Medication Instructions Recorded Confirmed Type Disulfiram [Antabuse] 250 mg PO HS 05/19/19 05/19/19 History Gabapentin [Neurontin] 100 mg PO HS PRN 05/19/19 05/19/19 History Allergies Allergy/AdvReac Type Severity Reaction Status Date / Time No Known Allergies Allergy Verified 05/19/19 09:06 Physical Exam Vitals: Vital Signs Temp Pulse Pulse Resp BP BP BP 05/19/19 21:15 98.1 F 57 L 18 153/91 05/19/19 14:10 97.5 F L 91 16 137/80 05/19/19 04:00 98.2 F 102 H 20 140/82 05/19/19 03:11 110 H 18 146/73 05/18/19 23:15 98.7 F 125 H 20 155/109 Pulse Ox 05/19/19 21:15 100 05/19/19 14:10 94 L 05/19/19 04:00 98 05/19/19 03:11 97 05/18/19 23:15 97 Intake and Output 05/19/19 05/19/19 05/19/19 06:59 14:59 22:59 Intake Total 200 1200 Balance 200 1200 Intake: Oral 200 1200 Other: # Voids 1 0 Weight 88.451 kg General: well nourished, well developed. Mildly diaphoretic. Vitals reviewed Eyes: PERRL, EOMI, conjunctiva normal HENT: normocephalic, mucus membranes moist Neck: supple, no JVD Lungs: normal respiratory effort, no wheezes or rales CV: Tachycardic and regular, no murmur. Peripheral pulses 2+ Abdomen: soft, nondistended, no organomegaly Lymph: no cervical or axillary LAD Skin: warm and dry. Neuro: A&Ox3, intention tremor. Withdrawn Results CBC & Chem 7: 05/19/19 00:44 05/19/19 00:44 Labs: Abnormal Lab Results - Last 24 Hours (Table) 05/18/19 05/18/19 05/19/19 Range/Units 23:31 23:31 00:44 AST 349 H (17-59) U/L ALT 527 H (4-49) U/L Total Protein 8.3 H (6.3-8.2) g/dL Urine Protein 4+ H (Negative) Urine Ketones 1+ H (Negative) Urine Blood Moderate H (Negative) Hyaline Casts 16 H (0-2) /lpf Urine Mucus Many H (None) /hpf U Marijuana (THC) Screen Detected H (NotDetected) Serum Alcohol 351 H* mg/dL Thrombosis Risk Factor Assmnt - Choose All That Apply Any of the Below Risk Factors Present?: No Other Risk Factors: No Other congenital or acquired thrombophilia - If yes, enter type in comment: No Thrombosis Risk Factor Assessment Level: Very Low Risk Assessment and Plan (1) Alcohol intoxication Current Visit: Yes Status: Acute Code(s): F10.929 - ALCOHOL USE, UNSPECIFIED WITH INTOXICATION, UNSPECIFIED SNOMED Code(s): 27950716 (2) Evaluation by psychiatric service required Current Visit: Yes Status: Acute Code(s): Z00.8 - ENCOUNTER FOR OTHER GENERAL EXAMINATION SNOMED Code(s): 675354943 (3) Elevated LFTs Current Visit: No Status: Acute Code(s): R94.5 - ABNORMAL RESULTS OF LIVER FUNCTION STUDIES SNOMED Code(s): 945667534 Plan: 1. Alcoholism/alcohol withdrawal. CIWA protocol. social work consulted. Pt medically stable for discharge when cleared by psych 2. Suicidal ideation. Psych consult
[2019-05-20 05:14] VITALS: BP 128/75; PULSE 58; RESP 20; TEMP 98
[2019-05-20] MEDS: 1: MVI, ADULT NO.4 WITH VIT K 10 ML, THIAMINE 100 MG, FOLIC ACID 1 MG in SODIUM CHLORIDE IV SCH ×4 (09:36)
[2019-05-20] MEDS: THIAMINE 100 MG TAB PO SCH (09:36)
--- NOTE | 2019-05-21 00:07 | DS ---
DISCHARGE SUMMARY I am covering for Dr. Tom. FINAL DIAGNOSES: 1. Acute alcohol intoxication. 2. Elevated LFTs, possible alcoholic hepatitis. 3. History of hernia repair. 4. History of degenerative joint disease. 5. History of polysubstance abuse including heroin, marijuana, opiates. DISCHARGE DISCHARGE: The patient will be discharged in stable condition with guarded prognosis. HISTORY OF PRESENT ILLNESS: This 24-year-old gentleman with a past medical history admitted with acute alcohol intoxication and LFTs elevated up to 349 and 527, but however, alcohol level was initially 351. The patient recovered and the patient is keen on going home at this time. So, I would recommend the patient be discharged with plans for outpatient followup. On exam, vitals are stable. Cardiovascular: S1, S2. Abdomen soft. Nervous system: No focal deficits. DISCHARGE ADVICE AND MEDICATIONS: 1. Diet is cardiac. 2. Activity limited until follow up. 3. Follow up with Dr. Taina Diallo in 1-2 days. DISCHARGE MEDICATIONS: 1. Antabuse as before. 2. Neurontin 100 mg q.h.s. 3. Folic acid 1 mg daily. 4. Motrin p.r.n. 5. Multivitamins one p.o. daily. 6. Thiamine 100 mg. 7. To attend a substance abuse counseling as an outpatient patient. Once again, the patient is being discharged in stable condition with guarded prognosis. MMODL / IJN: [id number] /
== END 2019-05-20 13:11 | disposition home or self-care (01) ==
LOC: EC 22:56 → 6NMEDSUR 05-19 03:15
PROVIDERS: ADMIT Family Medicine; ATTEND Family Medicine
DX: F10.239 Alcohol dependence with withdrawal, unspecified (principal); F10.229 Alcohol dependence with intoxication, unspecified; R79.89 Other specified abnormal findings of blood chemistry; M19.90 Unspecified osteoarthritis, unspecified site; F19.11 Other psychoactive substance abuse, in remission; Z83.3 Family history of diabetes mellitus; S93.401A Sprain of unspecified ligament of right ankle, initial encounter
CPT/HCPCS: 96376; 96361 ×2; 96366 ×2; 96375 ×2; 82075; 96365; 96372; 99285; 36415; 80053; 83735; 84100; 85025; 85610; 81001; 80306; 73610; 70450; G0378 ×2; L4350; G0480; J2060; J3411; J2405; 80320

== ENCOUNTER 2019-09-17 23:56 | Emergency (ER) | payer OTHER ==
[2019-09-18] MEDS ORDERED: SODIUM CHLORIDE 0.9% 1,000 ML IV ONE (00:22)
[2019-09-18] MEDS ORDERED: methylPREDNISolone SOD SUCCI 125 MG/2 ML VIAL IV STA (00:22)
[2019-09-18] MEDS ORDERED: diphenhydrAMINE 50 MG/ML 1 ML VIAL IVP STA (00:22)
[2019-09-18] MEDS ORDERED: FAMOTIDINE 20 MG/2 ML VIAL IV STA (00:23)
[2019-09-18 01:09] LABS: Basophils # (A) 0.1 k/uL (0-0.2); Basophils % (A) 0 %; Eosinophils # (A) 0.3 k/uL (0-0.7); Eosinophils % (A) 1 %; HGB 16.5 gm/dL (13.0-17.5); Lymphocytes # (A) 2.1 k/uL (1.0-4.8); Lymphocytes % (A) 12 %; MCH 31.2 pg (25.0-35.0); MCHC 33.8 g/dL (31.0-37.0); MCV 92.4 fL (80.0-100.0); Mean Platelet Volume 10.9; Monocytes # (A) 1.1 k/uL (0-1.0); Monocytes % (A) 6 %; Neutrophils # (A) 13.2 k/uL (1.3-7.7); Neutrophils % (A) 77 %; Platelet Count 228 k/uL (150-450); RDW 13.9 % (11.5-15.5); WBC 17.1 k/uL (3.8-10.6)
[2019-09-18 01:12] LABS: ALT 319 U/L (4-49); AST 391 U/L (17-59); African American GFR (CKD) >90 (>60 ml/min/1.73 sqM); Alkaline Phosphatase 101 U/L (38-126); Anion Gap 11 mmol/L; Blood Urea Nitrogen 12 mg/dL (9-20); Calcium 9.9 mg/dL (8.4-10.2); Carbon Dioxide 34 mmol/L (22-30); Chloride 90 mmol/L (98-107); Creatine Kinase 256 U/L (55-170); Glucose 101 mg/dL (74-99); Non-African American GFR(CKD) >90 (>60 ml/min/1.73 sqM); Potassium 3.4 mmol/L (3.5-5.1); Sodium 135 mmol/L (137-145); Total Bilirubin 1.1 mg/dL (0.2-1.3); Total Protein 8.5 g/dL (6.3-8.2)
[2019-09-18 01:37] LABS: Appearance,Urine Clear (Clear); Bilirubin,Urine Negative (Negative); Blood,Urine Negative (Negative); Color,Urine Yellow; Glucose,Urine (UA) Negative (Negative); Ketones,Urine Negative (Negative); Leukocyte Esterase,Urine Negative (Negative); Nitrite,Urine Negative (Negative); Protein,Urine Trace (Negative); Specific Gravity,Urine 1.021 (1.001-1.035)
--- NOTE | 2019-09-18 01:52 | ED ---
General Adult HPI - General Chief complaint: Skin/Abscess/Foreign Body Stated complaint: Rash Time Seen by Provider: 09/18/19 00:13 Source: patient, RN notes reviewed, old records reviewed Mode of arrival: ambulatory Limitations: no limitations - History of Present Illness Initial comments: 24-year-old male patient presents to ED for evaluation of rash. Patient reportedly recently detoxed from alcohol approximate 4 days ago. He states that he laid in a bathtub which was partially filled with vomit for approximately 24 hours. Afterwards patient began to spread to rash mostly on his torso. Reports that the rash is not particularly uncomfortable. Reports he has a very mild amount of itching. Denies any acute complaints at this time. Systemic: Pt denies fatigue, fever/chills. Pt denies weakness, night sweats, weight loss. Neuro: Pt denies headache, visual disturbances, syncope or pre-syncope. HEENT: Pt denies ocular discharge or irritation, otalgia, rhinorrhea, pharyngitis or notable lymphadenopathy. Cardiopulmonary: Pt denies chest pain, SOB, heart palpitations, dyspnea on exertion. Abdominal/GI: Pt denies abdominal pain, n/v/d. : Pt denies dysuria, burning w/ urination, frequency/urgency. Denies new onset urinary or bowel incontinence. MSK: Pt denies myalgia, loss of strength or function in extremities. Neuro: Pt denies new onset weakness, paresthesias. - Related Data Home Medications Medication Instructions Recorded Confirmed Disulfiram [Antabuse] 250 mg PO HS 05/19/19 05/19/19 Gabapentin [Neurontin] 100 mg PO HS PRN 05/19/19 05/19/19 Previous Rx's Medication Instructions Recorded Folic Acid 1 mg PO DAILY #15 tablet 05/20/19 Ibuprofen [Motrin] 400 mg PO Q6HR PRN #10 tab 05/20/19 Multivitamins, Thera [Multivitamin] 1 tab PO DAILY #15 tablet 05/20/19 Thiamine [Vitamin B-1] 100 mg PO DAILY #15 tablet 05/20/19 predniSONE [Deltasone] 20 mg PO BID 4 Days #8 tab 09/18/19 Allergies Allergy/AdvReac Type Severity Reaction Status Date / Time cat dander Allergy Itching Verified 09/18/19 00:09 Review of Systems ROS Statement: Those systems with pertinent positive or pertinent negative responses have been documented in the HPI. ROS Other: All systems not noted in ROS Statement are negative. Past Medical History Past Medical History: No Reported History History of Any Multi-Drug Resistant Organisms: None Reported Past Surgical History: Hernia Repair, Orthopedic Surgery Additional Past Surgical History / Comment(s): right arm surgery. hernia repair as a child. undescended testicle as a child Past Anesthesia/Blood Transfusion Reactions: No Reported Reaction Past Psychological History: No Psychological Hx Reported Smoking Status: Never smoker Past Alcohol Use History: Heavy Past Drug Use History: Marijuana - Past Family History Mother Family Medical History: Diabetes Mellitus Additional Family Medical History / Comment(s): family history on maternal side of diabetes General Exam - General Exam Comments Initial Comments: Constitutional: NAD, AOX3, Pt has pleasant affect. HEENT: NC/AT, trachea midline, neck supple, no lymphadenopathy. Posterior pharynx non erythematous, without exudates. External ears appear normal, without discharge. Mucous membranes moist. Eyes PERRLA, EOM intact. There is no scleral icterus. No pallor noted. Cardiopulmonary: RRR, no murmurs, rubs or gallops, no JVD noted. Lungs CTAB in anterior and posterior keating. No peripheral edema. Abdominal exam: Abdomen soft and non-distended. Abdomen non-tender to palpation in all 4 quadrants. Bowel sounds active in LLQ. No hepatosplenomegaly. No ecchymosis Neuro: CN II-XII grossly intact. No nuchal rigidity. No raccon eyes, no rivera sign, no hemotympanum. No cervical spinal tenderness. MSK: No posterior calf tenderness bilaterally, homans sign negative bilaterally. Posterior tibialis and radial pulse +2 bilaterally. Sensation intact in upper and lower extremities. Full active ROM in upper and lower extremities, 5/5 str egnth. Derm: Maculopapular rash noted anterior torso anterior neck region. No oropharyngeal involvement. No dermal detachment. Limitations: no limitations Course Vital Signs 09/18/19 00:00 Temperature 98.4 F Pulse Rate 102 H Respiratory 18 Rate Blood Pressure 144/109 O2 Sat by Pulse 97 Oximetry Medical Decision Making - Medical Decision Making 24-year-old male patient presents to ED for evaluation of rash. Patient reportedly recently detoxed from alcohol approximate 4 days ago. He states that he laid in a bathtub which was partially filled with vomit for approximately 24 hours. Afterwards patient began to spread to rash mostly on his torso. Reports that the rash is not particularly uncomfortable. Reports he has a very mild amount of itching. Denies any acute complaints at this time. Patient also still, afebrile. Physical exam displayed maculopapular rash. Lymph investigations obtained significant for transaminitiis ethnically changed from previous ultrasound evaluations. Leukocytosis. Creatinine kinase of 256. Patient initiated on burst third treatment Benadryl. We discharge this first arrives and outpatient follow-up. Patient will return to ED if condition worsens. Case discussed with Dr. Tang. - Lab Data Result diagrams: 09/18/19 00:45 09/18/19 00:45 Lab Results 09/18/19 09/18/19 09/18/19 Range/Units 00:45 00:45 01:28 WBC 17.1 H (3.8-10.6) k/uL RBC 5.30 (4.30-5.90) m/uL Hgb 16.5 (13.0-17.5) gm/dL Hct 49.0 (39.0-53.0) % MCV 92.4 (80.0-100.0) fL MCH 31.2 (25.0-35.0) pg MCHC 33.8 (31.0-37.0) g/dL RDW 13.9 (11.5-15.5) % Plt Count 228 (150-450) k/uL Neutrophils % 77 % Lymphocytes % 12 % Monocytes % 6 % Eosinophils % 1 % Basophils % 0 % Neutrophils # 13.2 H (1.3-7.7) k/uL Lymphocytes # 2.1 (1.0-4.8) k/uL Monocytes # 1.1 H (0-1.0) k/uL Eosinophils # 0.3 (0-0.7) k/uL Basophils # 0.1 (0-0.2) k/uL Sodium 135 L (137-145) mmol/L Potassium 3.4 L (3.5-5.1) mmol/L Chloride 90 L (98-107) mmol/L Carbon Dioxide 34 H (22-30) mmol/L Anion Gap 11 mmol/L BUN 12 (9-20) mg/dL Creatinine 0.81 (0.66-1.25) mg/dL Est GFR (CKD-EPI)AfAm >90 (>60 ml/min/1.73 sqM) Est GFR (CKD-EPI)NonAf >90 (>60 ml/min/1.73 sqM) Glucose 101 H (74-99) mg/dL Calcium 9.9 (8.4-10.2) mg/dL Total Bilirubin 1.1 (0.2-1.3) mg/dL AST 391 H (17-59) U/L ALT 319 H (4-49) U/L Alkaline Phosphatase 101 (38-126) U/L Creatine Kinase 256 H (55-170) U/L Total Protein 8.5 H (6.3-8.2) g/dL Albumin 5.0 (3.5-5.0) g/dL Urine Color Yellow Urine Appearance Clear (Clear) Urine pH 6.0 (5.0-8.0) Ur Specific [place] 1.021 (1.001-1.035) Urine Protein Trace H (Negative) Urine Glucose (UA) Negative (Negative) Urine Ketones Negative (Negative) Urine Blood Negative (Negative) Urine Nitrite Negative (Negative) Urine Bilirubin Negative (Negative) Urine Urobilinogen 3.0 (<2.0) mg/dL Ur Leukocyte Esterase Negative (Negative) Disposition Clinical Impression: Acute maculopapular rash Disposition: HOME SELF-CARE Condition: Stable Instructions (If sedation given, give patient instructions): Acute Rash (ED) Additional Instructions: Take steroids as directed. These [id number] Benadryl as well. Follow up with primary care provider tomorrow and return to ER if condition worsens in any way. Prescriptions: predniSONE [Deltasone] 20 mg PO BID 4 Days #8 tab Is patient prescribed a controlled substance at d/c from ED?: No Referrals: Taina Diallo DO [Primary Care Provider] - 1-2 days
[2019-09-18 02:01] VITALS: BP 139/102; PULSE 90; RESP 17; TEMP 98.5
== END 2019-09-18 02:01 | disposition home or self-care (01) ==
LOC: EC 23:56
DX: R21 Rash and other nonspecific skin eruption (principal); D72.829 Elevated white blood cell count, unspecified; Z79.899 Other long term (current) drug therapy; Z91.048 Other nonmedicinal substance allergy status
CPT/HCPCS: 36415; 80053; 82550; 85025; 81003; 99283; 96374; 96375 ×2; 96361; J1200; J2930

== ENCOUNTER 2019-10-17 00:51 | Observation (INO) | payer OTHER ==
[2019-10-17] MEDS ORDERED: SODIUM CHLORIDE 0.9% 1,000 ML IV STA (01:21)
[2019-10-17] MEDS ORDERED: ONDANSETRON 4 MG/2 ML VIAL IVP STA (01:23)
[2019-10-17] MEDS ORDERED: FAMOTIDINE 20 MG/2 ML VIAL IV STA (01:23)
[2019-10-17 01:36] LABS: Basophils # (A) 0.1 k/uL (0-0.2); Basophils % (A) 1 %; Eosinophils % (A) 1 %; HCT 46.7 % (39.0-53.0); HGB 16.2 gm/dL (13.0-17.5); Lymphocytes # (A) 2.8 k/uL (1.0-4.8); Lymphocytes % (A) 32 %; MCH 31.3 pg (25.0-35.0); MCHC 34.6 g/dL (31.0-37.0); MCV 90.5 fL (80.0-100.0); Monocytes # (A) 0.7 k/uL (0-1.0); Monocytes % (A) 8 %; Neutrophils # (A) 4.9 k/uL (1.3-7.7); Neutrophils % (A) 57 %; Platelet Count 224 k/uL (150-450); RBC 5.16 m/uL (4.30-5.90); RDW 13.6 % (11.5-15.5); WBC 8.7 k/uL (3.8-10.6)
[2019-10-17 01:45] LABS: ALT 86 U/L (4-49); AST 139 U/L (17-59); African American GFR (CKD) >90 (>60 ml/min/1.73 sqM); Albumin 4.9 g/dL (3.5-5.0); Alkaline Phosphatase 88 U/L (38-126); Blood Urea Nitrogen 5 mg/dL (9-20); Calcium 9.3 mg/dL (8.4-10.2); Carbon Dioxide 27 mmol/L (22-30); Chloride 98 mmol/L (98-107); Glucose 108 mg/dL (74-99); Non-African American GFR(CKD) >90 (>60 ml/min/1.73 sqM); Potassium 3.6 mmol/L (3.5-5.1); Total Bilirubin 0.7 mg/dL (0.2-1.3); Total Protein 8.1 g/dL (6.3-8.2)
[2019-10-17] MEDS: 1: MVI, ADULT NO.4 WITH VIT K 10 ML, THIAMINE 100 MG, FOLIC ACID 1 MG in SODIUM CHLORIDE IV SCH ×8 (01:49→07:57)
[2019-10-17 01:59] LABS: Alcohol 397 mg/dL
[2019-10-17 02:03] LABS: Anion Gap 16 mmol/L; Sodium 141 mmol/L (137-145)
--- NOTE | 2019-10-17 02:05 | XR ---
EXAMINATION TYPE: XR KUB DATE OF EXAM: 10/17/2019 COMPARISON: NONE HISTORY: Abdominal pain TECHNIQUE: 2 views FINDINGS: 2 views upright show no sign of intestinal obstruction or pneumoperitoneum. Fecal pattern i s normal. There is no evidence of a mass. Lung bases are clear. There are no pathologic calcification s over the kidneys. IMPRESSION: Nonacute abdomen.
--- NOTE | 2019-10-17 02:13 | ED ---
Psych HPI - General Source: patient Mode of arrival: ambulatory <Norma Young - Last Filed: 10/17/19 02:24> <Wilver Us - Last Filed: 10/18/19 06:38> - General Chief Complaint: Psychiatric Symptoms Stated Complaint: Alcohol,Stomach Pains Time Seen by Provider: 10/17/19 01:12 - History of Present Illness Initial Comments: 24 year-old male patient presents to the emergency department for evaluation of abdominal discomfort, alcohol intoxication, suicidal ideation. Patient states that he has been drinking heavily for over a year. States that he has had gastritis and has been prescribed Protonix but he has never taken it. Patient states he is having lower abdominal pain and cramping today. States that he has been vomiting heavily for the last couple of weeks. States this is not unusual for him. Denies any hematemesis, hematochezia, or melena. He has had umbilical hernia repair but denies any other abdominal surgeries. Patient states that he is depressed due to his drinking and he has reported a plan to shoot himself. Patient states he would like to stop drinking. States he has never been in a rehab facility. He denies any street drug use. Denies any hallucinations. He is quite concerned about going into alcohol withdrawal. Patient denies any recent rash, fever, chills, cough, shortness of breath, chest pain, back pain, numbness, tingling, dizziness, weakness, hematuria, dysuria, urinary urgency, urinary frequency, headache, visual changes, or any other complaints. (Norma Young) - Related Data Home Medications Medication Instructions Recorded Confirmed No Known Home Medications 10/17/19 10/17/19 Allergies Allergy/AdvReac Type Severity Reaction Status Date / Time cat dander Allergy Rash/Hives Verified 10/17/19 07:50 Review of Systems ROS Other: All systems not noted in ROS Statement are negative. <Norma Young - Last Filed: 10/17/19 02:24> ROS Other: All systems not noted in ROS Statement are negative. <Wilver Us - Last Filed: 10/18/19 06:38> ROS Statement: Those systems with pertinent positive or pertinent negative responses have been documented in the HPI. Past Medical History Past Medical History: No Reported History History of Any Multi-Drug Resistant Organisms: None Reported Past Surgical History: Hernia Repair, Orthopedic Surgery Additional Past Surgical History / Comment(s): right arm surgery. hernia repair as a child. undescended testicle as a child Past Anesthesia/Blood Transfusion Reactions: No Reported Reaction Past Psychological History: No Psychological Hx Reported Smoking Status: Never smoker Past Alcohol Use History: Abuse, Daily Past Drug Use History: Marijuana - Past Family History Mother Family Medical History: Diabetes Mellitus Additional Family Medical History / Comment(s): family history on maternal side of diabetes <Norma Young M - Last Filed: 10/17/19 02:24> General Exam Limitations: no limitations General appearance: alert, in no apparent distress, appears intoxicated, other (This is a 24-year-old intoxicated male patient in no acute distress. Vital signs upon presentation are temperature 98.2F, pulse 122, respirations 18, blood pressure 150/93, pulse ox 96% on room air.) Eye exam: Present: normal appearance, PERRL, EOMI. Absent: scleral icterus, conjunctival injection, periorbital swelling ENT exam: Present: normal exam, normal oropharynx, mucous membranes moist Respiratory exam: Present: normal lung sounds bilaterally. Absent: respiratory distress, wheezes, rales, rhonchi, stridor Cardiovascular Exam: Present: normal rhythm, tachycardia, normal heart sounds. Absent: systolic murmur, diastolic murmur, rubs, gallop, clicks GI/Abdominal exam: Present: soft, tenderness (lower abdominal tenderness), normal bowel sounds. Absent: distended, guarding, rebound, rigid Neurological exam: Present: alert, CN II-XII intact. Absent: oriented X3 (Oriented x2) Psychiatric exam: Present: suicidal ideation, other (Intoxicated). Absent: homicidal ideation Skin exam: Present: warm, dry, intact, normal color. Absent: rash <Norma Young M - Last Filed: 10/17/19 02:24> Course Vital Signs 10/17/19 10/17/19 00:59 02:52 Temperature 98.2 F 99.2 F Pulse Rate 122 H 94 Respiratory 18 18 Rate Blood Pressure 150/93 143/96 O2 Sat by Pulse 96 96 Oximetry Medical Decision Making - Lab Data Result diagrams: 10/17/19 01:26 10/17/19 01:26 - Radiology Data Radiology results: report reviewed, image reviewed <Norma Young - Last Filed: 10/17/19 02:24> - Lab Data Result diagrams: 10/17/19 01:26 10/17/19 01:26 <Wilver Us - Last Filed: 10/18/19 06:38> - Medical Decision Making 24 year-old male patient presented to the emergency department today for evaluation of abdominal pain, alcohol intoxication, suicidal ideation. Physical examination did reveal lower abdominal tenderness. Labs reviewed and did reveal mildly elevated liver enzymes. Alcohol levels 397. Patient states he has been drinking heavily for over a year. Does admit to drinking a fifth of vodka per day. Patient reports significant vomiting episodes. States he does have prescription for Protonix with does not take it. Patient was given Pepcid and Zofran here in the emergency department. Had no episodes of vomiting since arrival. Patient does report suicidal ideation with a plan to shoot himself. He'll be admitted for alcohol detoxification, Ativan withdrawal protocol has been ordered. We did consult psychiatry for when he is sober. Patient is agreeable to this plan. Mother is updated. (Norma Young) I saw this patient in conjunction with the physician mobile unit assistant. I performed independent history and physical exam. Agree with case management. (Wilver Us) - Lab Data Lab Results 10/17/19 10/17/19 Range/Units 01:26 01:26 WBC 8.7 (3.8-10.6) k/uL RBC 5.16 (4.30-5.90) m/uL Hgb 16.2 (13.0-17.5) gm/dL Hct 46.7 (39.0-53.0) % MCV 90.5 (80.0-100.0) fL MCH 31.3 (25.0-35.0) pg MCHC 34.6 (31.0-37.0) g/dL RDW 13.6 (11.5-15.5) % Plt Count 224 (150-450) k/uL Neutrophils % 57 % Lymphocytes % 32 % Monocytes % 8 % Eosinophils % 1 % Basophils % 1 % Neutrophils # 4.9 (1.3-7.7) k/uL Lymphocytes # 2.8 (1.0-4.8) k/uL Monocytes # 0.7 (0-1.0) k/uL Eosinophils # 0.0 (0-0.7) k/uL Basophils # 0.1 (0-0.2) k/uL Sodium 141 (137-145) mmol/L Potassium 3.6 (3.5-5.1) mmol/L Chloride 98 (98-107) mmol/L Carbon Dioxide 27 (22-30) mmol/L Anion Gap 16 mmol/L BUN 5 L (9-20) mg/dL Creatinine 0.76 (0.66-1.25) mg/dL Est GFR (CKD-EPI)AfAm >90 (>60 ml/min/1.73 sqM) Est GFR (CKD-EPI)NonAf >90 (>60 ml/min/1.73 sqM) Glucose 108 H (74-99) mg/dL Calcium 9.3 (8.4-10.2) mg/dL Total Bilirubin 0.7 (0.2-1.3) mg/dL AST 139 H (17-59) U/L ALT 86 H (4-49) U/L Alkaline Phosphatase 88 (38-126) U/L Total Protein 8.1 (6.3-8.2) g/dL Albumin 4.9 (3.5-5.0) g/dL Lipase 244 (23-300) U/L Serum Alcohol 397 H* mg/dL - Radiology Data Two-view x-ray of the abdomen is obtained. Report was reviewed in its entirety. Impression by Dr. Calvillo shows nonacute abdomen. (Norma Young) Disposition Decision to Admit Reason: Admit from EC Decision Date: 10/17/19 Decision Time: 02:26 <Norma Young - Last Filed: 10/17/19 02:24> <Wilver Us - Last Filed: 10/18/19 06:38> Clinical Impression: Alcohol intoxication, Suicidal ideation, Abdominal pain Disposition: ADMITTED IP TO THIS [facility] Condition: Serious
[2019-10-17] MEDS ORDERED: NALOXONE 0.4 MG/ML 1 ML VIAL IV PRN (02:21)
[2019-10-17] MEDS ORDERED: IBUPROFEN 400 MG TAB PO PRN (02:21)
[2019-10-17] MEDS ORDERED: THIAMINE 100 MG/ML 2 ML VIAL IM STA (02:21)
[2019-10-17] MEDS ORDERED: LORazepam 2 MG/ML INJ IV PRN ×3 (02:21)
[2019-10-17] MEDS ORDERED: ONDANSETRON 4 MG/2 ML VIAL IVP PRN (02:21)
[2019-10-17] MEDS: FAMOTIDINE 20 MG TAB PO SCH ×2 (07:57→20:21)
[2019-10-17 08:34] LABS: Appearance,Urine Clear (Clear); Bilirubin,Urine Negative (Negative); Blood,Urine Negative (Negative); Color,Urine Yellow; Glucose,Urine (UA) Negative (Negative); Ketones,Urine Negative (Negative); Leukocyte Esterase,Urine Negative (Negative); Nitrite,Urine Negative (Negative); Protein,Urine Negative (Negative); Specific Gravity,Urine 1.008 (1.001-1.035); Urobilinogen,Urine <2.0 mg/dL (<2.0)
--- NOTE | 2019-10-17 13:14 | P.CN ---
Psychiatric Consult - . Consult date: 10/17/19 Consult:: 10/17/19 12:30 IDENTIFYING DATA: This patient is a 24-year-old male who currently lives with his mother in a house is unemployed and has no kids. HISTORY OF PRESENT ILLNESS: The patient presented to the hospital yesterday for abdominal discomfort, alcohol intoxication and suicidal thoughts. Patient was reporting vomiting heavily for the past few weeks and also reported a history of drinking heavily for over one year. According to ER report patient claims that he wanted to shoot himself. Patient's blood alcohol level was 397 on arrival. Psychiatry is consulted for suicidal ideations. Patient's nurse states that reginald ponce has been nauseous and sleeping throughout the day. She also stated a patient is denying suicidal thoughts at this time and currently had a sitter at the bedside. Patient was agreeable to speak to principal technical writer however appeared to be trembling at times and appeared to be in discomfort due to nausea and abdominal pain. He states that he is having mild withdrawal symptoms however has not had Ativan at this time. He states that the stomach pain has gotten worse in the past few hours. He claims that he's been drinking approximately a fifth of vodka a day since 2018. He claims that he initially bought "drugs online" and sniffs them and claims that "they burned my nerve endings in my nose" and states that he has been using alcohol to cope with that and "numb it". He claims that his mood is "okay" and denies any depressive symptoms. He states that his sleep is poor however and is fragmented. He claims that he has poor appetite and smokes cannabis to stimulate his appetite. He denies any history of complex/complicated withdrawal symptoms including seizures or delirium tremens. He denies any access to guns or weapons in the house. He states that he has been noncompliant with most of his medications. He denies any alcohol cravings at this time however claims that he would like to find out more about inpatient rehab to help with his alcohol use. At this time patient denies any suicidal or homical ideations, intent or plan. Patient denies any auditory, visual hallucinations and denies any paranoia or delusions. Patients admits to using alcohol daily and never been to rehab, see details above. He denies any cigarette use. He claims to smoke marijuana daily. PAST PSYCHIATRIC HISTORY: Patient has a a history of alcohol abuse. He states that he was previously on Lexapro months ago however has not been taking the medication. Patient denies any previous psychiatric hospitalizations. Patient denies any psychiatric outpatient follow-up. Patient denies any history of suic mahsa attempts in the past. PAST MEDICAL HISTORY: GERD and gastritis. ALLERGIES: as per EMR. CHEMICAL DEPENDENCY HISTORY: as per HPI. FAMILY PSYCHIATRIC/SUBSTANCE USE HISTORY: States that his father abused alcohol. SOCIAL HISTORY: Patient was born and raised in [place] and claims to have moved to [place]. 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 He states that he lives with his mother in a house and has no kids. He claims that he has never been to [facility] or long term however has been picked up by police 2 months ago for alcohol intoxication. MENTAL STATUS EXAM: General Appearance: Patient appears to be stated age is alert, attempts to cooperate and appears to be in moderate discomfort secondary to pain and nausea. Patient appears to have fair hygiene and grooming wearing hospital gown with fair eye contact. Behavior: Patient appears to be restless at times due to discomfort and nausea. Attempts to cooperate. Speech: Patient's speech is fluent and nonpressured. Mood/Affect: Patient reports their mood is "ok", affect is congruent and constricted. Suicidality/Homicidality: Patient denies having any suicidal or homicidal ideation intent or plan. Perceptions: Patient denies any visual hallucinations and denies any auditory hallucinations Though content/process: There is no evidence of any delusional thought content and thought process is linear and goal-directed. Memory and concentration: AOX3, grossly intact for the purposes of this session. Can spell "WORLD" backwards Judgment and insight: Limited IMPRESSIONS: Depressive disorder unspecified, rule out secondary to alcohol use Cannabis use disorder PLAN: -At this time patient DOES NOT meet criteria for inpatient psychiatric admission. -Would recommend the following medication changes/additions: We'll start patient on Remeron 15 mg daily at bedtime for sleep/appetite/mood. -Continue with CIWA protocol with when necessary Ativan for withdrawal symptoms. Continue to monitor vitals closely. -Discontinue one-to-one sitter at this time as patient is not suicidal and contracted to safety. -Patient is interested in inpatient substance use rehab, social insurance specialist to give patient information/resources to call to arrange for rehab. -Psychiatry will sign off at this point, please contact with any questions. 10/17/19 13:05
[2019-10-17] MEDS: THIAMINE 100 MG TAB PO SCH (17:33)
[2019-10-17] MEDS ORDERED: MIRTAZAPINE 15 MG TAB PO SCH (21:00)
--- NOTE | 2019-10-17 23:04 | P.HPIM ---
History of Present Illness H&P Date: 10/17/19 Chief Complaint: alcohol withdrawal, suicidal Jose Francisco Ballard is a 24 yo M with PMH of alcoholism, depression who presented to the ED complaining of suicidal ideation and abdominal pain. He was intoxicated at that time and stated he had thoughts of ending his own life with a gun. This morning, he denies suicidal ideation and states he came to the ED mostly because he was out of alcohol and wanted help managing the withdrawal. He states he has been drinking between a pint and a fifth per day for about a year now. He feels that alcohol helps suppress a tingling feeling he gets in his nose that he attributes to illegal drug use in the past. In the ED he was tachycardic and hypertensive, blood alcohol 397, AST/ALT 139/86. Review of Systems All systems: negative Constitutional: Denies chills, Denies fever Eyes: denies blurred vision, denies pain Ears, nose, mouth and throat: Denies headache, Denies sore throat Cardiovascular: Denies chest pain, Denies shortness of breath Respiratory: Denies cough Gastrointestinal: Reports heartburn, Denies abdominal pain, Denies diarrhea, Denies nausea, Denies vomiting Musculoskeletal: Denies myalgias Integumentary: Denies pruritus, Denies rash Neurological: Denies numbness, Denies weakness Psychiatric: Denies anxiety, Denies depression Endocrine: Denies fatigue, Denies weight change Past Medical History Past Medical History: No Reported History History of Any Multi-Drug Resistant Organisms: None Reported Past Surgical History: Hernia Repair, Orthopedic Surgery Additional Past Surgical History / Comment(s): right arm surgery. hernia repair as a child. undescended testicle as a child Past Anesthesia/Blood Transfusion Reactions: No Reported Reaction Past Psychological History: No Psychological Hx Reported Smoking Status: Never smoker Past Alcohol Use History: Abuse, Daily Additional Past Alcohol Use History / Comment(s): has history of poly substance abuse. per Past Drug Use History: Marijuana - Past Family History Mother Family Medical History: Diabetes Mellitus Additional Family Medical History / Comment(s): family history on maternal side of diabetes Medications and Allergies Home Medications Medication Instructions Recorded Confirmed Type No Known Home Medications 10/17/19 10/17/19 History Allergies Allergy/AdvReac Type Severity Reaction Status Date / Time cat dander Allergy Rash/Hives Verified 10/17/19 07:50 Physical Exam Vitals: Vital Signs Temp Pulse Pulse Resp BP BP Pulse Ox 10/17/19 18:52 98.0 F 88 18 145/92 96 10/17/19 14:46 99.3 F 87 16 132/79 97 10/17/19 08:00 17 10/17/19 07:06 98.2 F 87 17 137/84 96 10/17/19 03:10 98.5 F 98 18 142/98 97 10/17/19 02:52 99.2 F 94 18 143/96 96 10/17/19 00:59 98.2 F 122 H 18 150/93 96 Intake and Output 10/17/19 10/17/19 10/17/19 06:59 14:59 22:59 Intake Total 700 350 Balance 700 350 Intake: Intake, IV Titration 700 350 Amount Mvi, Adult No.4 with Vit 400 K 10 ml Thiamine 100 mg Folic Acid 1 mg In Sodium Chloride 0.9% 1,000 ml @ 100 mls/hr IV .BY DURATION [facility] Rx#: [id number] Sodium Chloride 0.9% 1, 300 350 000 ml @ 100 mls/hr IV . BY DURATION [facility] Rx#: [id number] Other: Voiding Method Toilet Urinal Weight 88.451 kg General: nervous white male in NAD. Sitter at bedside. Vitals reviewed Eyes: PERRL, EOMI, conjunctiva normal HENT: normocephalic, mucus membranes moist Neck: supple, no JVD Lungs: normal respiratory effort, no wheezes or rales CV: Regular rate and rhythm, no murmur. Peripheral pulses 2+ Abdomen: soft, nondistended, no organomegaly Lymph: no cervical or axillary LAD Skin: mild diaphoresis Neuro: A&Ox3, anxious mood Results CBC & Chem 7: 10/17/19 01:26 10/17/19 01:26 Labs: Abnormal Lab Results - Last 24 Hours (Table) 10/17/19 Range/Units 01:26 BUN 5 L (9-20) mg/dL Glucose 108 H (74-99) mg/dL AST 139 H (17-59) U/L ALT 86 H (4-49) U/L Serum Alcohol 397 H* mg/dL Thrombosis Risk Factor Assmnt - Choose All That Apply Any of the Below Risk Factors Present?: Yes Each Factor Represents 1 point: Obesity (BMI >25) Thrombosis Risk Factor Assessment Total Risk Factor Score: 1 Thrombosis Risk Factor Assessment Level: Low Risk Assessment and Plan (1) Alcohol withdrawal Current Visit: Yes Status: Acute Code(s): F10.239 - ALCOHOL DEPENDENCE WITH WITHDRAWAL, UNSPECIFIED SNOMED Code(s): 108014817 (2) Abdominal pain Current Visit: Yes Status: Acute Code(s): R10.9 - UNSPECIFIED ABDOMINAL PAIN SNOMED Code(s): 01033207 (3) Alcohol intoxication Current Visit: Yes Status: Acute Code(s): F10.929 - ALCOHOL USE, UNSPECIFIED WITH INTOXICATION, UNSPECIFIED SNOMED Code(s): 78532584 (4) Depression Current Visit: No Status: Acute Code(s): F32.9 - MAJOR DEPRESSIVE DISORDER, SINGLE EPISODE, UNSPECIFIED SNOMED Code(s): 17614902 (5) Elevated LFTs Current Visit: No Status: Acute Code(s): R94.5 - ABNORMAL RESULTS OF LIVER FUNCTION STUDIES SNOMED Code(s): 461546800 Plan: 1. Alcohol intoxication and suicidal ideation. Now resolved. Psychiatry consulted and will start pt on remeron for depression 2. Alcohol withdrawal. CIWA protocol, replete B vitamins 3. Abdominal pain. Suspect GERD from alcohol use. Start protonix 4. Elevated LFTs
[2019-10-18 02:45] VITALS: TEMP 97.9
[2019-10-18] MEDS: 1: MVI, ADULT NO.4 WITH VIT K 10 ML, THIAMINE 100 MG, FOLIC ACID 1 MG in SODIUM CHLORIDE IV SCH ×8 (03:53→08:38)
[2019-10-18] MEDS ORDERED: PANTOPRAZOLE 40 MG TABLET PO SCH (07:30)
[2019-10-18 08:02] VITALS: BP 143/98; PULSE 66; RESP 18
[2019-10-18] MEDS: THIAMINE 100 MG TAB PO SCH (08:38)
--- NOTE | 2019-10-18 09:29 | P.DS ---
Providers Date of admission: 10/17/19 02:16 Expected date of discharge: 10/18/19 Attending physician: Shay Tom MD Consults: 10/17/19 02:22 Consult Physician Routine Consulting Provider: Will Lyle Consult Reason/Comments: Suicidal ideation Do you want consulting provider notified?: Yes Primary care physician: Shay Tom MD Hospital Course: Final Diagnoses: (1) Alcohol withdrawal with suicidal ideation, resolved Current Visit: Yes Status: Acute Code(s): F10.239 - ALCOHOL DEPENDENCE WITH WITHDRAWAL, UNSPECIFIED SNOMED Code(s): 012494336 (2) Abdominal pain, significantly improved on PPI Current Visit: Yes Status: Acute Code(s): R10.9 - UNSPECIFIED ABDOMINAL PAIN SNOMED Code(s): 62528716 (3) Alcohol intoxication Current Visit: Yes Status: Acute Code(s): F10.929 - ALCOHOL USE, UNSPECIFIED WITH INTOXICATION, UNSPECIFIED SNOMED Code(s): 63766481 (4) Depression, Remeron initiated Current Visit: No Status: Acute Code(s): F32.9 - MAJOR DEPRESSIVE DISORDER, SINGLE EPISODE, UNSPECIFIED SNOMED Code(s): 31484464 (5) Elevated LFTs Current Visit: No Status: Acute Code(s): R94.5 - ABNORMAL RESULTS OF LIVER FUNCTION STUDIES SNOMED Code(s): 525339428 Hospital course:Jose Francisco Ballard is a 24 yo M with PMH of alcoholism, depression who presented to the ED complaining of suicidal ideation and abdominal pain. He was intoxicated at that time and stated he had thoughts of ending his own life with a gun. This morning, he denies suicidal ideation and states he came to the ED mostly because he was out of alcohol and wanted help managing the withdrawal. He states he has been drinking between a pint and a fifth per day for about a year now. He feels that alcohol helps suppress a tingling feeling he gets in his nose that he attributes to illegal drug use in the past. In the ED he was tachycardic and hypertensive, blood alcohol 397, AST/ALT 139/86. Maintained on CIWA protocol, IV fluid hydration, Remeron, PPI, B vitamins with significant clinical improvement. Evaluated by psychiatry recommending substance abuse program and initiated Remeron. Cleared by psych for discharge. Patient is discussing [facility]. Patient is being discharged home in a stable condition with guarded prognosis. The impression and plan of care has been dictated as directed. : I performed a history and examination of this patient, discussed the same with the dictator. I agree with the dictator's note ,documented as a scribe. Any additional findings or plans will be noted. Patient Condition at Discharge: Stable Plan - Discharge Summary New Discharge Prescriptions: New Folic Acid 1 mg PO DAILY #30 tablet Multivitamins, Thera [Multivitamin (formulary)] 1 tab PO DAILY #30 tablet Pantoprazole [Protonix] 40 mg PO AC-BRKFST #14 tablet. Thiamine [Vitamin B-1] 100 mg PO DAILY #30 tab Mirtazapine [Remeron] 15 mg PO HS #30 tab Discharge Medication List Folic Acid 1 mg PO DAILY #30 tablet 10/18/19 [Rx] Mirtazapine [Remeron] 15 mg PO HS #30 tab 10/18/19 [Rx] Multivitamins, Thera [Multivitamin (formulary)] 1 tab PO DAILY #30 tablet 10/18/19 [Rx] Pantoprazole [Protonix] 40 mg PO AC-BRKFST #14 tablet. 10/18/19 [Rx] Thiamine [Vitamin B-1] 100 mg PO DAILY #30 tab 10/18/19 [Rx] Follow up Appointment(s)/Referral(s): [facility], Psychiatry [Other] - 1 Week Shay Tom MD [Primary Care Provider] - 10/25/19 1:45 pm Ambulatory/Diagnostic Orders: Comprehensive Metabolic Panel [LAB.AMB] Time Frame: 3 Days, Location: None Selected Activity/Diet/Wound Care/Special Instructions: IP Substance abuse Program, [facility] . No alcohol, no recreational drugs
== END 2019-10-18 10:19 | disposition home or self-care (01) ==
LOC: EC 00:51 → 4SSUR 02:16
PROVIDERS: ADMIT Family Medicine; ATTEND Family Medicine
DX: F10.239 Alcohol dependence with withdrawal, unspecified (principal); F10.229 Alcohol dependence with intoxication, unspecified; R45.851 Suicidal ideations; K29.70 Gastritis, unspecified, without bleeding; K21.9 Gastro-esophageal reflux disease without esophagitis; T47.1X6A Underdosing of other antacids and anti-gastric-secretion drugs, initial encounter; F32.9 Major depressive disorder, single episode, unspecified; R00.0 Tachycardia, unspecified; R74.8 Abnormal levels of other serum enzymes; I10 Essential (primary) hypertension; J30.81 Allergic rhinitis due to animal (cat) (dog) hair and dander; E66.9 Obesity, unspecified; Z68.27 Body mass index [BMI] 27.0-27.9, adult; Y90.8 Blood alcohol level of 240 mg/100 ml or more; Z56.0 Unemployment, unspecified; Z81.1 Family history of alcohol abuse and dependence; Z83.3 Family history of diabetes mellitus; Z03.818 Encounter for observation for suspected exposure to other biological agents ruled out
CPT/HCPCS: 96376; 96366 ×3; 96375 ×2; 96365; 96372; 99285; 36415; 80053; 83690; 85025; 81003; 74018; G0378 ×2; G0480; U0003; J2060; J3411; J2405; 80320

== ENCOUNTER 2020-02-11 23:41 | Observation (INO) | payer OTHER ==
[2020-02-11 23:55] VITALS: RESP 18; TEMP 98.3
[2020-02-12] MEDS ORDERED: SODIUM CHLORIDE 0.9% 1,000 ML IV STA (00:13)
[2020-02-12] MEDS ORDERED: LORazepam 2 MG/ML INJ IV STA (00:13)
[2020-02-12] MEDS ORDERED: THIAMINE 100 MG/ML 2 ML VIAL IM STA (00:25)
[2020-02-12] MEDS ORDERED: LORazepam 2 MG/ML INJ IV PRN ×3 (00:25)
--- NOTE | 2020-02-12 00:39 | ED ---
Alcohol HPI - General Chief Complaint: Alcohol Stated Complaint: MENTAL HEALTH Time Seen by Provider: 02/11/20 23:54 Source: patient, EMS Mode of arrival: ambulatory Limitations: altered mental status - History of Present Illness Initial Comments: Jose Francisco is a 25-year-old male with a history of alcohol abuse who is been through withdrawals including seizures in the past, he has been sober until approximately 2 weeks ago when he began drinking again. Patient reports he's been drinking up to a plate a day. He states that he supposed to go to rehab to [facility]. Today the patient was drinking heavily, he walked out into his driveway and mom can get him to come back in the house. He didn't have any falls or trauma. He was sitting in the driveway and she couldn't get him up he would not cooperate. He kept stating that he needed to drink more so that he would have withdrawals. - Related Data Previous Rx's Medication Instructions Recorded RX: Folic Acid 1 mg PO DAILY #30 tablet 10/18/19 RX: Mirtazapine [Remeron] 15 mg PO HS #30 tab 10/18/19 RX: Multivitamins, Thera 1 tab PO DAILY #30 tablet 10/18/19 [Multivitamin (formulary)] RX: Pantoprazole [Protonix] 40 mg PO AC-BRKFST #14 tablet. 10/18/19 RX: Thiamine [Vitamin B-1] 100 mg PO DAILY #30 tab 10/18/19 Allergies Allergy/AdvReac Type Severity Reaction Status Date / Time cat dander Allergy Rash/Hives Verified 02/11/20 23:55 Review of Systems ROS Statement: Those systems with pertinent positive or pertinent negative responses have been documented in the HPI. ROS Other: All systems not noted in ROS Statement are negative. Past Medical History Past Medical History: No Reported History History of Any Multi-Drug Resistant Organisms: None Reported Past Surgical History: Hernia Repair, Orthopedic Surgery Additional Past Surgical History / Comment(s): right arm surgery. hernia repair as a child. undescended testicle as a child Past Anesthesia/Blood Transfusion Reactions: No Reported Reaction Past Psychological History: No Psychological Hx Reported Smoking Status: Current every day smoker Past Alcohol Use History: Abuse, Daily Past Drug Use History: Marijuana - Past Family History Mother Family Medical History: Diabetes Mellitus Additional Family Medical History / Comment(s): family history on maternal side of diabetes General Exam - General Exam Comments Initial Comments: Physical Exam GENERAL: Patient is well-developed and well-nourished. Strong odor of alcohol, not cooperative with history or exam HENT: Normocephalic, Atraumatic. EYES: PERRL, EOMI PULMONARY: Unlabored respirations. CARDIOVASCULAR: Tachycardia Warm and well perfused extremities ABDOMEN: Non-distended SKIN: No rashes or bruising : Deferred NEUROLOGIC: Alert and oriented Slurred speech Staggering gait MUSCULOSKELETAL: Moving all extremities with no apparent injury PSYCHIATRIC: Agitated Limitations: altered mental status Course Vital Signs 02/11/20 23:50 Temperature 98.3 F Pulse Rate 113 H Respiratory 18 Rate Blood Pressure 148/110 O2 Sat by Pulse 98 Oximetry Procedures - Restraint - Face to Face Restraint Occurrence 1 Patient's Immediate Situation: Endangers self safety, Endangers staff safety Patient's Reaction to the Intervention: Uncooperative, Aggressive Patient's Medical & Behavioral Condition: Anxious Face to Face Eval of Restraint Date: 02/12/20 Face to Face Eval of Restraint Time: 00:15 Medical Decision Making - Medical Decision Making The patient was seen and evaluated history was obtained from the patient, mother and EMS 25-year-old intoxicated male with history of alcohol abuse and withdrawals in the past Patient is agitated and not cooperative Patient was restrained due to being combative with staff and attempting to run out of the department Ativan was given Labs were ordered, patient has a significantly elevated alcohol level we will plan to admit the patient for intoxication with a [place] scale with concern for impending withdrawal - Lab Data Result diagrams: 02/12/20 01:06 02/12/20 01:06 Disposition Clinical Impression: Alcohol intoxication Disposition: ADMITTED IP TO THIS [facility] Condition: Serious
[2020-02-12] MEDS ORDERED: NALOXONE 0.4 MG/ML 1 ML VIAL IV PRN (00:46)
[2020-02-12] MEDS ORDERED: SODIUM CHLORIDE 0.9% 1,000 ML IV SCH (01:00)
[2020-02-12 01:15] LABS: Basophils % (A) 0 %; Eosinophils # (A) 0.1 k/uL (0-0.7); Eosinophils % (A) 1 %; HCT 50.5 % (39.0-53.0); HGB 17.3 gm/dL (13.0-17.5); Lymphocytes # (A) 2.6 k/uL (1.0-4.8); Lymphocytes % (A) 25 %; MCHC 34.2 g/dL (31.0-37.0); MCV 87.9 fL (80.0-100.0); Mean Platelet Volume 8.5; Monocytes # (A) 0.8 k/uL (0-1.0); Monocytes % (A) 8 %; Neutrophils # (A) 6.7 k/uL (1.3-7.7); Neutrophils % (A) 64 %; Platelet Count 287 k/uL (150-450); RBC 5.75 m/uL (4.30-5.90); RDW 12.9 % (11.5-15.5); WBC 10.5 k/uL (3.8-10.6)
[2020-02-12 01:27] LABS: ALT 87 U/L (4-49); AST 96 U/L (17-59); African American GFR (CKD) >90 (>60 ml/min/1.73 sqM); Albumin 5.3 g/dL (3.5-5.0); Alkaline Phosphatase 90 U/L (38-126); Anion Gap 18 mmol/L; Blood Urea Nitrogen 11 mg/dL (9-20); Calcium 9.4 mg/dL (8.4-10.2); Carbon Dioxide 24 mmol/L (22-30); Chloride 103 mmol/L (98-107); Glucose 110 mg/dL (74-99); Non-African American GFR(CKD) >90 (>60 ml/min/1.73 sqM); Potassium 4.3 mmol/L (3.5-5.1); Sodium 145 mmol/L (137-145); Total Bilirubin 0.5 mg/dL (0.2-1.3); Total Protein 8.7 g/dL (6.3-8.2)
[2020-02-12 01:39] LABS: Alcohol 438 mg/dL
[2020-02-12] MEDS ORDERED: ONDANSETRON 4 MG/2 ML VIAL IVP PRN (04:12)
[2020-02-12] MEDS ORDERED: PANTOPRAZOLE 40 MG/10 ML VIAL IVP SCH (09:00)
[2020-02-12 09:18] VITALS: BP 156/87; PULSE 122
[2020-02-12] MEDS ORDERED: THIAMINE 100 MG TAB PO SCH (17:30)
== END 2020-02-12 10:30 | disposition left against medical advice (07) ==
LOC: EC 23:41 → 5NMEDONC 02-12 00:46 → 6NMEDSUR 02-12 00:46 → UNDOADMOB 02-12 00:46 → 6NMEDSUR 02-12 01:51 → 5NMEDONC 02-12 01:51
PROVIDERS: ADMIT Family Medicine; ATTEND Family Medicine
DX: F10.129 Alcohol abuse with intoxication, unspecified (principal); Z78.1 Physical restraint status; R45.1 Restlessness and agitation; Z53.29 Procedure and treatment not carried out because of patient's decision for other reasons; Z79.899 Other long term (current) drug therapy; J30.81 Allergic rhinitis due to animal (cat) (dog) hair and dander; F17.200 Nicotine dependence, unspecified, uncomplicated; Z83.3 Family history of diabetes mellitus; Y90.8 Blood alcohol level of 240 mg/100 ml or more
CPT/HCPCS: 96376; 82075; 96361; 96372; 96374; 99285; 36415; 80053; 85025; G0378; G0480; J2060; J3411; 80320

== ENCOUNTER 2020-02-15 22:18 | Observation (INO) | payer OTHER ==
[2020-02-15] MEDS ORDERED: SODIUM CHLORIDE 0.9% 1,000 ML IV ONE (23:00)
[2020-02-15] MEDS ORDERED: LORazepam 2 MG/ML INJ IV STA (23:00)
[2020-02-15] MEDS ORDERED: SODIUM CHLORIDE 0.9% 1,000 ML IV STA (23:00)
--- NOTE | 2020-02-15 23:06 | ED ---
Alcohol HPI - General Chief Complaint: Alcohol Stated Complaint: Detox Time Seen by Provider: 02/15/20 22:28 Source: patient, family Mode of arrival: ambulatory - History of Present Illness Initial Comments: This patient is 25-year-old man who presents with concern that he is developing withdrawal from alcohol. Patient states that he had gone to check and it at a rehab but they were very concerned about the way he was tremulous and they referred him to the emergency department. He states that he drinks approximately 1/5 of alcohol per day. Patient's last drink was at about 9 AM. He states that he is feeling very shaky and anxious. In addition he is having a little bit of diffuse, burning, abdominal pain. MD Complaint: alcohol withdrawal Time Since Last Drink: 14 -: hour(s) Recent Trauma: No Associated Symptoms: nausea, vomiting Chronic Alcohol Use: Yes - Related Data Home Medications Medication Instructions Recorded Confirmed DULoxetine HCL [Cymbalta] 20 mg PO DAILY 02/12/20 02/12/20 Omeprazole 40 mg PO DAILY 02/12/20 02/12/20 Previous Rx's Medication Instructions Recorded Thiamine [Vitamin B-1] 100 mg PO DAILY #30 tab 10/18/19 Allergies Allergy/AdvReac Type Severity Reaction Status Date / Time cat dander Allergy Rash/Hives Verified 02/12/20 06:27 Review of Systems ROS Statement: Those systems with pertinent positive or pertinent negative responses have been documented in the HPI. ROS Other: All systems not noted in ROS Statement are negative. Constitutional: Denies: fever Respiratory: Denies: cough, dyspnea Cardiovascular: Reports: palpitations. Denies: chest pain, syncope Gastrointestinal: Reports: abdominal pain, nausea, vomiting. Denies: diarrhea, hematemesis, melena, hematochezia Genitourinary: Denies: dysuria, hematuria Musculoskeletal: Denies: back pain Skin: Denies: rash Neurological: Denies: headache, weakness Psychiatric: Reports: anxiety. Denies: suicidal thoughts Past Medical History Past Medical History: No Reported History History of Any Multi-Drug Resistant Organisms: None Reported Past Surgical History: Hernia Repair, Orthopedic Surgery Additional Past Surgical History / Comment(s): right arm surgery. hernia repair as a child. undescended testicle as a child Past Anesthesia/Blood Transfusion Reactions: No Reported Reaction Past Psychological History: No Psychological Hx Reported Smoking Status: Current every day smoker Past Alcohol Use History: Abuse, Daily Past Drug Use History: Marijuana - Past Family History Mother Family Medical History: Diabetes Mellitus Additional Family Medical History / Comment(s): family history on maternal side of diabetes General Exam General appearance: alert, anxious Head exam: Present: atraumatic, normocephalic Eye exam: Present: normal appearance. Absent: scleral icterus, conjunctival injection ENT exam: Present: normal oropharynx Neck exam: Present: normal inspection Respiratory exam: Present: normal lung sounds bilaterally. Absent: respiratory distress, wheezes, rales, rhonchi, stridor Cardiovascular Exam: Present: normal rhythm, tachycardia, normal heart sounds. Absent: systolic murmur, diastolic murmur, rubs, gallop GI/Abdominal exam: Present: soft. Absent: distended, tenderness, guarding, rebound, rigid, mass Extremities exam: Present: normal inspection, normal capillary refill. Absent: pedal edema, calf tenderness Back exam: Present: normal inspection. Absent: CVA tenderness (R), CVA tenderness (L) Neurological exam: Present: alert Skin exam: Present: warm, dry, intact, normal color. Absent: rash Course Vital Signs 02/15/20 02/16/20 22:20 00:21 Temperature 98.8 F Pulse Rate 125 H 79 Respiratory 18 18 Rate Blood Pressure 144/91 139/93 O2 Sat by Pulse 98 97 Oximetry Medical Decision Making - Lab Data Result diagrams: 02/15/20 23:13 02/15/20 23:13 Lab Results 02/15/20 02/15/20 Range/Units 23:13 23:13 WBC 19.7 H (3.8-10.6) k/uL RBC 5.28 (4.30-5.90) m/uL Hgb 15.3 (13.0-17.5) gm/dL Hct 45.1 (39.0-53.0) % MCV 85.4 (80.0-100.0) fL MCH 28.9 (25.0-35.0) pg MCHC 33.8 (31.0-37.0) g/dL RDW 12.1 (11.5-15.5) % Plt Count 262 (150-450) k/uL Neutrophils % 88 % Lymphocytes % 7 % Monocytes % 4 % Eosinophils % 0 % Basophils % 0 % Neutrophils # 17.4 H (1.3-7.7) k/uL Lymphocytes # 1.3 (1.0-4.8) k/uL Monocytes # 0.9 (0-1.0) k/uL Eosinophils # 0.0 (0-0.7) k/uL Basophils # 0.1 (0-0.2) k/uL Sodium 133 L (137-145) mmol/L Potassium 3.5 (3.5-5.1) mmol/L Chloride 93 L (98-107) mmol/L Carbon Dioxide 26 (22-30) mmol/L Anion Gap 14 mmol/L BUN 9 (9-20) mg/dL Creatinine 0.91 (0.66-1.25) mg/dL Est GFR (CKD-EPI)AfAm >90 (>60 ml/min/1.73 sqM) Est GFR (CKD-EPI)NonAf >90 (>60 ml/min/1.73 sqM) Glucose 147 H (74-99) mg/dL Calcium 9.8 (8.4-10.2) mg/dL Total Bilirubin 1.7 H (0.2-1.3) mg/dL AST 84 H (17-59) U/L ALT 62 H (4-49) U/L Alkaline Phosphatase 99 (38-126) U/L Total Protein 8.2 (6.3-8.2) g/dL Albumin 5.1 H (3.5-5.0) g/dL Amylase 101 (30-110) U/L Lipase 134 (23-300) U/L Serum Alcohol <10 mg/dL Disposition Clinical Impression: Alcohol withdrawal Disposition: ADMITTED IP TO THIS HOSP Condition: Good Instructions (If sedation given, give patient instructions): Alcohol Withdrawal (ED) Is patient prescribed a controlled substance at d/c from ED?: No Referrals: Shay Tom MD [Primary Care Provider] - 1-2 days
[2020-02-15 23:33] LABS: Basophils # (A) 0.1 k/uL (0-0.2); Basophils % (A) 0 %; Eosinophils % (A) 0 %; HCT 45.1 % (39.0-53.0); HGB 15.3 gm/dL (13.0-17.5); Lymphocytes # (A) 1.3 k/uL (1.0-4.8); Lymphocytes % (A) 7 %; MCH 28.9 pg (25.0-35.0); MCHC 33.8 g/dL (31.0-37.0); MCV 85.4 fL (80.0-100.0); Mean Platelet Volume 9.1; Monocytes # (A) 0.9 k/uL (0-1.0); Monocytes % (A) 4 %; Neutrophils # (A) 17.4 k/uL (1.3-7.7); Neutrophils % (A) 88 %; Platelet Count 262 k/uL (150-450); RBC 5.28 m/uL (4.30-5.90); RDW 12.1 % (11.5-15.5); WBC 19.7 k/uL (3.8-10.6)
[2020-02-15 23:47] LABS: ALT 62 U/L (4-49); AST 84 U/L (17-59); African American GFR (CKD) >90 (>60 ml/min/1.73 sqM); Albumin 5.1 g/dL (3.5-5.0); Alcohol <10 mg/dL; Alkaline Phosphatase 99 U/L (38-126); Amylase 101 U/L (30-110); Anion Gap 14 mmol/L; Blood Urea Nitrogen 9 mg/dL (9-20); Calcium 9.8 mg/dL (8.4-10.2); Carbon Dioxide 26 mmol/L (22-30); Chloride 93 mmol/L (98-107); Glucose 147 mg/dL (74-99); Non-African American GFR(CKD) >90 (>60 ml/min/1.73 sqM); Potassium 3.5 mmol/L (3.5-5.1); Sodium 133 mmol/L (137-145); Total Bilirubin 1.7 mg/dL (0.2-1.3); Total Protein 8.2 g/dL (6.3-8.2)
[2020-02-16] MEDS ORDERED: THIAMINE 100 MG/ML 2 ML VIAL IM STA (00:42)
[2020-02-16] MEDS ORDERED: LORazepam 2 MG/ML INJ IV PRN ×3 (00:42)
[2020-02-16] MEDS ORDERED: MAG HYDROX/AL HYDROX/SIMETH 30 ML CUP PO PRN (00:42)
[2020-02-16] MEDS ORDERED: NALOXONE 0.4 MG/ML 1 ML VIAL IV PRN (00:42)
[2020-02-16] MEDS ORDERED: IBUPROFEN 400 MG TAB PO PRN (01:00)
[2020-02-16] MEDS: SODIUM CHLORIDE 0.9% 1,000 ML IV SCH ×2 (07:13→16:04)
[2020-02-16] MEDS: PANTOPRAZOLE 40 MG TABLET PO SCH (08:26)
[2020-02-16] MEDS: THIAMINE 100 MG TAB PO SCH ×2 (08:26→16:04)
[2020-02-16] MEDS: DULoxetine HCL 20 MG CAPSULE.DR PO SCH (08:27)
[2020-02-16] MEDS ORDERED: MELATONIN 3 MG TABLET PO PRN (21:00)
[2020-02-17] MEDS: SODIUM CHLORIDE 0.9% 1,000 ML IV SCH ×2 (06:21→16:09)
[2020-02-17 07:07] LABS: Basophils % (A) 1 %; Eosinophils # (A) 0.1 k/uL (0-0.7); Eosinophils % (A) 1 %; HCT 44.6 % (39.0-53.0); HGB 14.1 gm/dL (13.0-17.5); Lymphocytes # (A) 1.5 k/uL (1.0-4.8); Lymphocytes % (A) 17 %; MCH 27.9 pg (25.0-35.0); MCHC 31.6 g/dL (31.0-37.0); MCV 88.5 fL (80.0-100.0); Mean Platelet Volume 9.7; Monocytes # (A) 0.5 k/uL (0-1.0); Monocytes % (A) 5 %; Neutrophils # (A) 6.6 k/uL (1.3-7.7); Neutrophils % (A) 75 %; Platelet Count 192 k/uL (150-450); RBC 5.04 m/uL (4.30-5.90); RDW 12.2 % (11.5-15.5); WBC 8.7 k/uL (3.8-10.6)
[2020-02-17] MEDS: DULoxetine HCL 20 MG CAPSULE.DR PO SCH (07:57)
[2020-02-17] MEDS: PANTOPRAZOLE 40 MG TABLET PO SCH (07:57)
[2020-02-17] MEDS: THIAMINE 100 MG TAB PO SCH ×2 (07:57→17:24)
[2020-02-17 09:05] LABS: African American GFR (CKD) 141.9 (60.0-200.0); Anion Gap 10.7 mmol/L (4.00-12.00); Carbon Dioxide 23.3 mmol/L (21.6-31.8); Non-African American GFR(CKD) 122.4 (60.0-200.0); Potassium 3.9 mmol/L (3.5-5.5)
[2020-02-17 12:26] VITALS: BMI 26.0
[2020-02-17 16:32] VITALS: BP 118/87; PULSE 75; RESP 18; TEMP 98.1
--- NOTE | 2020-03-01 16:12 | P.HPIM ---
History of Present Illness H&P Date: 02/16/20 Chief Complaint: Alcohol withdrawal This patient is 25-year-old man who presents with concern that he is developing withdrawal from alcohol. Patient states that he had gone to check and it at a rehab but they were very concerned about the way he was tremulous and they refer red him to the emergency department. He states that he drinks approximately 1/5 of alcohol per day. Patient's last drink was at about 9 AM. He states that he is feeling very shaky and anxious. In addition he is having a little bit of diffuse, burning, abdominal pain. Review of Systems REVIEW OF SYSTEMS: CONSTITUTIONAL: No fever, no malaise, no fatigue. HEENT: No recent visual problems or hearing problems. Denied any sore throat. CARDIOVASCULAR: No chest pain, orthopnea, PND, no palpitations, no syncope. PULMONARY: No shortness of breath, no cough, no hemoptysis. GASTROINTESTINAL: No diarrhea, no nausea, no vomiting, no abdominal pain. NEUROLOGICAL: No headaches, no weakness, no numbness. HEMATOLOGICAL: Denies any bleeding or petechiae. GENITOURINARY: Denies any burning micturition, frequency, or urgency. MUSCULOSKELETAL/RHEUMATOLOGICAL: Denies any joint pain, swelling, or any muscle pain. ENDOCRINE: Denies any polyuria or polydipsia. The rest of the 14-point review of systems is negative. Past Medical History Past Medical History: GERD/Reflux Additional Past Medical History / Comment(s): ETOH abuse with withdrawals (tremors/abdominal pain), past elevated LFTs History of Any Multi-Drug Resistant Organisms: None Reported Past Surgical History: Hernia Repair, Orthopedic Surgery Additional Past Surgical History / Comment(s): right arm surgery for severed nerve, hernia repair as a child, undescended testicle as a child Past Anesthesia/Blood Transfusion Reactions: No Reported Reaction Smoking Status: Never smoker - Past Family History Mother Family Medical History: Diabetes Mellitus Additional Family Medical History / Comment(s): family history on maternal side of diabetes Father Additional Family Medical History / Comment(s): Pt has never met his father but knows that he is an alcoholic and agoraphobic. Medications and Allergies Home Medications Medication Instructions Recorded Confirmed Type Thiamine [Vitamin B-1] 100 mg PO DAILY #30 tab 10/18/19 02/16/20 Rx DULoxetine HCL [Cymbalta] 20 mg PO DAILY 02/12/20 02/16/20 History Omeprazole 40 mg PO DAILY 02/12/20 02/16/20 History Thiamine [Vitamin B-1] 100 mg PO BID-W/MEALS tab 02/17/20 Rx Allergies Allergy/AdvReac Type Severity Reaction Status Date / Time cat dander Allergy Rash/Hives Verified 02/16/20 06:21 Physical Exam Vitals: Vital Signs Temp Pulse Resp BP Pulse Ox 02/17/20 07:00 98.2 F 74 19 140/96 99 02/17/20 01:30 98.1 F 60 17 146/92 98 02/16/20 19:25 98.8 F 77 17 149/96 100 Intake and Output 02/17/20 02/17/20 02/17/20 06:59 14:59 22:59 Intake Total 1460 Balance 1460 Intake: Intake, IV Titration 300 Amount Sodium Chloride 0.9% 1, 300 000 ml @ 75 mls/hr IV . [id number] [facility] Rx#:[id number] Oral 1160 Other: Voiding Method Toilet # Voids 2 3 Weight 84.822 kg - Constitutional General appearance: Present: average body habitus, cooperative, no acute distress - EENT Eyes: Present: anicteric sclerae, EOMI, PERRLA, normal appearance ENT: Present: hearing grossly normal, normal oropharynx Ears: bilateral: normal - Neck Neck: Present: normal ROM. Absent: lymphadenopathy, rigidity, thyromegaly Carotids: negative: bruit present Thyroid: bilateral: normal size, negative: enlarged, nodule - Respiratory Respiratory: bilateral: CTA, negative: rales, rhonchi, wheezing - Cardiovascular Rhythm: regular Heart sounds: normal: S1, S2 Abnormal Heart Sounds: Absent: systolic murmur, diastolic murmur - Gastrointestinal General gastrointestinal: Present: normal bowel sounds, soft. Absent: distended, organomegaly, tenderness - Genitourinary Genitourinary Comment(s): deferred - Integumentary Integumentary: Present: normal turgor. Absent: jaundiced, rash, ulcer - Neurologic Neurologic: Present: CNII-XII intact. Absent: focal deficits - Musculoskeletal Musculoskeletal: Present: gait normal, strength equal bilaterally - Psychiatric Psychiatric: Present: A&O x's 3, appropriate affect, intact judgment & insight Results CBC & Chem 7: 02/17/20 06:26 02/17/20 06:26 Labs: Abnormal Lab Results - Last 24 Hours (Table) 02/17/20 Range/Units 06:26 Sodium 134 L (135-145) mmol/L BUN 8.0 L (9.0-27.0) mg/dL BUN/Creatinine Ratio 10.00 L (12.00-20.00) Ratio Thrombosis Risk Factor Assmnt - Choose All That Apply Any of the Below Risk Factors Present?: Yes Each Factor Represents 1 point: Obesity (BMI >25) Other Risk Factors: No Other congenital or acquired thrombophilia - If yes, enter type in comment: No Thrombosis Risk Factor Assessment Total Risk Factor Score: 1 Thrombosis Risk Factor Assessment Level: Low Risk Assessment and Plan Assessment: 1. EtOH abuse/withdrawal; we will admit patient to the hospital; IV fluids in f orm of banana bag; CIWA protocol with Ativan; start patient on thiamine and folic acid 2. Leukocytosis; white blood count is 19.7 upon admission; no signs of sepsis; we will panculture and monitor CBC closely; no antibiotics at this time 3. Depression continue home medication DVT prophylaxis; SCDs CODE STATUS; full code
--- NOTE | 2020-03-01 16:13 | P.DS ---
Providers Date of admission: 02/16/20 00:42 Expected date of discharge: 02/17/20 Attending physician: Dennys Wiggins Primary care physician: Shay Tom MD Hospital Course: This patient is 25-year-old man who presents with concern that he is developing withdrawal from alcohol. Patient states that he had gone to check and it at a rehab but they were very concerned about the way he was tremulous and they referred him to the emergency department. He states that he drinks approximately 1/5 of alcohol per day. Patient's last drink was at about 9 AM. He states that he is feeling very shaky and anxious. In addition he is having a little bit of diffuse, burning, abdominal pain. Patient was admitted due to with [facility] protocol with Ativan; IV fluids in form of banana bag; thiamine and folic acid; patient remained stable without any c omplications and was discharged home in a stable condition Patient Condition at Discharge: Good Plan - Discharge Summary Discharge Rx Participant: No New Discharge Prescriptions: New Thiamine [Vitamin B-1] 100 mg PO BID-W/MEALS tab Continue Thiamine [Vitamin B-1] 100 mg PO DAILY #30 tab Omeprazole 40 mg PO DAILY DULoxetine HCL [Cymbalta] 20 mg PO DAILY Discharge Medication List Thiamine [Vitamin B-1] 100 mg PO DAILY #30 tab 10/18/19 [Rx] DULoxetine HCL [Cymbalta] 20 mg PO DAILY 02/12/20 [History] Omeprazole 40 mg PO DAILY 02/12/20 [History] Thiamine [Vitamin B-1] 100 mg PO BID-W/MEALS tab 02/17/20 [Rx] Follow up Appointment(s)/Referral(s): Shay Tom MD [Primary Care Provider] - 1-2 days Patient Instructions/Handouts: Alcohol Withdrawal (ED) Discharge Disposition: HOME SELF-CARE
== END 2020-02-17 19:38 | disposition home or self-care (01) ==
LOC: EC 22:18 → 1SOBS 02-16 00:42 → 4SSUR 02-16 01:06
PROVIDERS: ADMIT Hospitalist; ATTEND Hospitalist
DX: F10.239 Alcohol dependence with withdrawal, unspecified (principal); R10.9 Unspecified abdominal pain; R11.2 Nausea with vomiting, unspecified; Z79.899 Other long term (current) drug therapy; J30.81 Allergic rhinitis due to animal (cat) (dog) hair and dander; F17.200 Nicotine dependence, unspecified, uncomplicated; Z83.3 Family history of diabetes mellitus; Y90.0 Blood alcohol level of less than 20 mg/100 ml
CPT/HCPCS: 96361 ×4; 82075; 96372; 96374; 99285; 36415; 80053; 80048; 82150; 83690; 85025 ×2; G0378 ×2; G0480; J2060; J3411; 80320

== ENCOUNTER 2020-03-16 20:08 | Emergency (ER) | payer OTHER ==
[2020-03-16 20:13] VITALS: BP 148/86; PULSE 85; RESP 18; TEMP 99.6
[2020-03-16] MEDS ORDERED: ONDANSETRON 4 MG/2 ML VIAL IVP STA (20:26)
[2020-03-16] MEDS ORDERED: SODIUM CHLORIDE 0.9% 1,000 ML IV STA (20:26)
--- NOTE | 2020-03-16 20:33 | ED ---
General Adult HPI - General Chief complaint: Abdominal Pain Stated complaint: Abd Pain Time Seen by Provider: 03/16/20 20:17 Source: patient Mode of arrival: ambulatory Limitations: no limitations - History of Present Illness Initial comments: 25-year-old male presents to emergency department this evening with complaints of right lower quadrant abdominal pain, onset 4 days prior to arrival. Patient states the pain has become increasingly persistent and is accompanied by nausea. Patient denies fever, vomiting or diarrhea; denies previous abdominal surgeries. States he has had some issues with constipation over the past few weeks, reports last bowel movement was yesterday. Patient denies any recent rash, chills, cough, shortness of breath, chest pain, back pain, numbness, tingling, dizziness, weakness, hematuria, dysuria, urinary urgency, urinary frequency, headache, visual changes, or any other complaints. - Related Data Home Medications Medication Instructions Recorded Confirmed DULoxetine HCL [Cymbalta] 20 mg PO DAILY 02/12/20 02/16/20 Omeprazole 40 mg PO DAILY 02/12/20 02/16/20 Previous Rx's Medication Instructions Recorded Thiamine [Vitamin B-1] 100 mg PO DAILY #30 tab 10/18/19 Thiamine [Vitamin B-1] 100 mg PO BID-W/MEALS tab 02/17/20 Ibuprofen [Motrin] 600 mg PO Q8HR PRN #30 tab 03/16/20 Tamsulosin HCl [Flomax] 0.4 mg PO DAILY #7 cap 03/16/20 Allergies Allergy/AdvReac Type Severity Reaction Status Date / Time cat dander Allergy Rash/Hives Verified 03/16/20 20:13 Review of Systems ROS Statement: Those systems with pertinent positive or pertinent negative responses have been documented in the HPI. ROS Other: All systems not noted in ROS Statement are negative. Past Medical History Past Medical History: GERD/Reflux Additional Past Medical History / Comment(s): ETOH abuse with withdrawals (tremors/abdominal pain), past elevated LFTs History of Any Multi-Drug Resistant Organisms: None Reported Past Surgical History: Hernia Repair, Orthopedic Surgery Additional Past Surgical History / Comment(s): right arm surgery for severed nerve, hernia repair as a child, undescended testicle as a child, Past Anesthesia/Blood Transfusion Reactions: No Reported Reaction Past Psychological History: Depression Smoking Status: Never smoker Past Alcohol Use History: Heavy Past Drug Use History: Marijuana - Past Family History Mother Family Medical History: Diabetes Mellitus Additional Family Medical History / Comment(s): family history on maternal side of diabetes Father Additional Family Medical History / Comment(s): Pt has never met his father but knows that he is an alcoholic and agoraphobic. General Exam Limitations: no limitations (This is a well-developed, well-nourished male in no acute distress. Initial temperature 99.6F, pulse 85, respirations 18, blood pressure 148/86, pulse ox 96% on room air.) General appearance: alert, in no apparent distress Respiratory exam: Present: normal lung sounds bilaterally. Absent: respiratory distress, wheezes, rales, rhonchi, stridor Cardiovascular Exam: Present: regular rate, normal rhythm, normal heart sounds. Absent: systolic murmur, diastolic murmur, rubs, gallop, clicks GI/Abdominal exam: Present: soft, tenderness (Ligia-Umbilical and right lower quadrant tenderness upon palpation), rebound (Mild right lower quadrant rebound tenderness), normal bowel sounds Neurological exam: Present: alert, oriented X3, CN II-XII intact Psychiatric exam: Present: normal affect, normal mood Skin exam: Present: warm, dry, intact, normal color. Absent: rash Course Vital Signs 03/16/20 20:11 Temperature 99.6 F Pulse Rate 85 Respiratory 18 Rate Blood Pressure 148/86 O2 Sat by Pulse 96 Oximetry Medical Decision Making - Medical Decision Making 25-year-old male presents to the emergency department with four-day history of persistent right lower quadrant abdominal pain accompanied by nausea. Patient denies vomiting, diarrhea, and fever. Patient does have mild rebound tenderness with palpation of the right lower quadrant. White blood cell count elevated at 21.8 and urinalysis shows a large amount of blood. CT of the abdomen and pelvis was obtained; appendix was visualized as normal. Though a kidney stone was not seen on the CT scan, there is high degree of suspicion that he has either recently passed a stone or one is present but not visualized. Patient was given pain medication, nausea medication and a liter of IV fluids. States he is feeling much improved. Provided a dose of Flomax prior to departure. Patient was instructed to follow up with primary care provider for recheck. Also encouraged to see a urologist for further evaluation. Return parameters were discussed in detail. Patient verbalizes understanding and agrees with this plan. - Lab Data Result diagrams: 03/16/20 20:35 03/16/20 20:35 Lab Results 03/16/20 03/16/20 03/16/20 Range/Units 20:35 20:35 20:35 WBC 21.3 H (3.8-10.6) k/uL RBC 5.55 (4.30-5.90) m/uL Hgb 16.6 (13.0-17.5) gm/dL Hct 49.9 (39.0-53.0) % MCV 89.9 (80.0-100.0) fL MCH 29.8 (25.0-35.0) pg MCHC 33.2 (31.0-37.0) g/dL RDW 12.3 (11.5-15.5) % Plt Count 269 (150-450) k/uL Neutrophils % 91 % Lymphocytes % 4 % Monocytes % 3 % Eosinophils % 1 % Basophils % 0 % Neutrophils # 19.4 H (1.3-7.7) k/uL Lymphocytes # 0.9 L (1.0-4.8) k/uL Monocytes # 0.6 (0-1.0) k/uL Eosinophils # 0.2 (0-0.7) k/uL Basophils # 0.1 (0-0.2) k/uL Sodium 138 (137-145) mmol/L Potassium 4.6 (3.5-5.1) mmol/L Chloride 103 (98-107) mmol/L Carbon Dioxide 25 (22-30) mmol/L Anion Gap 10 mmol/L BUN 14 (9-20) mg/dL Creatinine 1.25 (0.66-1.25) mg/dL Est GFR (CKD-EPI)AfAm >90 (>60 ml/min/1.73 sqM) Est GFR (CKD-EPI)NonAf 79 (>60 ml/min/1.73 sqM) Glucose 111 H (74-99) mg/dL Calcium 10.5 H (8.4-10.2) mg/dL Total Bilirubin 0.7 (0.2-1.3) mg/dL AST 50 (17-59) U/L ALT 76 H (4-49) U/L Alkaline Phosphatase 81 (38-126) U/L Total Protein 8.7 H (6.3-8.2) g/dL Albumin 5.2 H (3.5-5.0) g/dL Lipase 137 (23-300) U/L Urine Color Yellow Urine Appearance Cloudy (Clear) Urine pH 6.5 (5.0-8.0) Ur Specific Kelliher 1.028 (1.001-1.035) Urine Protein 1+ H (Negative) Urine Glucose (UA) Negative (Negative) Urine Ketones Trace H (Negative) Urine Blood Large H (Negative) Urine Nitrite Negative (Negative) Urine Bilirubin Negative (Negative) Urine Urobilinogen <2.0 (<2.0) mg/dL Ur Leukocyte Esterase Small H (Negative) Urine RBC 159 H (0-5) /hpf Urine WBC 23 H (0-5) /hpf Ur Squamous Epith Cells <1 (0-4) /hpf Urine Bacteria Rare H (None) /hpf Urine Mucus Many H (None) /hpf - Radiology Data Radiology results: report reviewed CT of the abdomen and pelvis without contrast was obtained. There is moderate fatty infiltration of the liver. Appendix is normal as visualized. No suspicious inflammatory changes are evident. There are couple of small and enlarged lymph nodes in the right lower quadrant. Impression per Dr. Calvillo its normal appendix. No suspicious abnormality to account for the right lower quadrant pain. Disposition Clinical Impression: Abdominal pain, Hematuria, Vomiting Disposition: HOME SELF-CARE Condition: Good Instructions (If sedation given, give patient instructions): Acute Nausea and Vomiting (ED), Hematuria (ED), Abdominal Pain (ED) Additional Instructions: Take medication as directed. Follow-up with the primary care physician for recheck in 1-2 days. Follow-up with urology for further evaluation as soon as possible. Return to the emergency department immediately for any new, worseni ng, or concerning symptoms. Prescriptions: Tamsulosin HCl [Flomax] 0.4 mg PO DAILY #7 cap Ibuprofen [Motrin] 600 mg PO Q8HR PRN #30 tab PRN Reason: Pain Is patient prescribed a controlled substance at d/c from ED?: No Referrals: Shay Tom MD [Primary Care Provider] - 1-2 days Time of Disposition: 22:10
[2020-03-16 20:45] LABS: Basophils # (A) 0.1 k/uL (0-0.2); Basophils % (A) 0 %; Eosinophils # (A) 0.2 k/uL (0-0.7); Eosinophils % (A) 1 %; HCT 49.9 % (39.0-53.0); HGB 16.6 gm/dL (13.0-17.5); Lymphocytes # (A) 0.9 k/uL (1.0-4.8); Lymphocytes % (A) 4 %; MCH 29.8 pg (25.0-35.0); MCHC 33.2 g/dL (31.0-37.0); MCV 89.9 fL (80.0-100.0); Mean Platelet Volume 10.2; Monocytes # (A) 0.6 k/uL (0-1.0); Monocytes % (A) 3 %; Neutrophils # (A) 19.4 k/uL (1.3-7.7); Neutrophils % (A) 91 %; Platelet Count 269 k/uL (150-450); RBC 5.55 m/uL (4.30-5.90); RDW 12.3 % (11.5-15.5); WBC 21.3 k/uL (3.8-10.6)
[2020-03-16 20:49] LABS: Appearance,Urine Cloudy (Clear); Bacteria,Urine Rare /hpf; Bilirubin,Urine Negative (Negative); Blood,Urine Large (Negative); Color,Urine Yellow; Glucose,Urine (UA) Negative (Negative); Ketones,Urine Trace (Negative); Leukocyte Esterase,Urine Small (Negative); Mucus,Urine Many /hpf; Nitrite,Urine Negative (Negative); PH, Urine 6.5 (5.0-8.0); Protein,Urine 1+ (Negative); RBC,Urine 159 /hpf (0-5); Specific Gravity,Urine 1.028 (1.001-1.035); Squamous Epithelial Cell,Urine <1 /hpf (0-4); Urobilinogen,Urine <2.0 mg/dL (<2.0); WBC,Urine 23 /hpf (0-5)
[2020-03-16 20:54] LABS: ALT 76 U/L (4-49); AST 50 U/L (17-59); African American GFR (CKD) >90 (>60 ml/min/1.73 sqM); Albumin 5.2 g/dL (3.5-5.0); Alkaline Phosphatase 81 U/L (38-126); Anion Gap 10 mmol/L; Blood Urea Nitrogen 14 mg/dL (9-20); Calcium 10.5 mg/dL (8.4-10.2); Carbon Dioxide 25 mmol/L (22-30); Chloride 103 mmol/L (98-107); Glucose 111 mg/dL (74-99); Lipase 137 U/L (23-300); Non-African American GFR(CKD) 79 (>60 ml/min/1.73 sqM); Potassium 4.6 mmol/L (3.5-5.1); Sodium 138 mmol/L (137-145); Total Bilirubin 0.7 mg/dL (0.2-1.3); Total Protein 8.7 g/dL (6.3-8.2)
[2020-03-16] MEDS ORDERED: MORPHINE SULFATE 4 MG/ML SYRINGE IVP STA (21:16)
--- NOTE | 2020-03-16 21:25 | CT ---
EXAMINATION TYPE: CT abdomen pelvis w con DATE OF EXAM: 03/16/2020 COMPARISON: None INDICATION: Right lower quadrant pain. DLP: 958.7 mGycm, Automated exposure control for dose reduction was used. CONTRAST: 100 mL of Isovue 300. Study performed without Oral Contrast TECHNIQUE: Axial images were obtained from above the diaphragm to the pubic rami in the axial plane a t 5 mm thick sections. Reconstructed images are reviewed on the computer in the coronal plane. FINDINGS: Limited CT sections are obtained the lung bases. The lung bases are clear. CT ABDOMEN: Liver: There is moderate fatty infiltration liver. Spleen: Normal Pancreas: Normal Adrenal glands: The adrenal glands are normal. Gallbladder: Normal Kidneys: No masses are evident. No hydronephrosis is present. No cysts are present. Delayed images were obtained through the kidneys, which remain unremarkable. Aorta: Normal Inferior vena cava: Normal. CT PELVIS: Loops of bowel within the abdomen and pelvis are normal. The studies without oral contrast limiti ng bowel evaluation. Appendix: Normal as visualized. No suspicious inflammatory changes are evident. There are couple of s mall nonenlarged lymph nodes in the right lower quadrant. Urinary bladder: Decompressed with limited evaluation Genitourinary structures: Prostate is normal Osseous structures: No suspicious lytic or sclerotic lesions. IMPRESSIONS: 1. Normal appendix. 2. No suspicious abnormality to account for right lower quadrant pain.
[2020-03-16] MEDS ORDERED: TAMSULOSIN 0.4 MG CAP.ER.24H PO STA (22:08)
[2020-03-16] MEDS ORDERED: IBUPROFEN 600 MG STARTER PACK 4 TAB BTL PO STA (22:08)
== END 2020-03-16 22:20 | disposition home or self-care (01) ==
LOC: EC 20:08
DX: R10.31 Right lower quadrant pain (principal); R31.9 Hematuria, unspecified; R11.10 Vomiting, unspecified; F32.9 Major depressive disorder, single episode, unspecified; Z79.899 Other long term (current) drug therapy; Z91.048 Other nonmedicinal substance allergy status
CPT/HCPCS: 36415; 80053; 83690; 85025; 81001; 87086; 74177; 99284; 96374; 96375; 96361; J2270; J2405; Q9967

== ENCOUNTER 2020-06-01 09:48 | Emergency (ER) | payer OTHER ==
[2020-06-01 09:58] VITALS: RESP 18; TEMP 98.9
[2020-06-01] MEDS ORDERED: LORazepam 2 MG/ML INJ IV PRN ×3 (10:06)
[2020-06-01] MEDS ORDERED: THIAMINE 100 MG/ML 2 ML VIAL IM STA (10:06)
[2020-06-01] MEDS ORDERED: SODIUM CHLORIDE 0.9% 500 ML 500 ML IV STA (10:06)
--- NOTE | 2020-06-01 10:11 | ED ---
Alcohol HPI - General Chief Complaint: Alcohol Stated Complaint: Withdrawl, Arm Pain Time Seen by Provider: 06/01/20 10:00 Source: patient Mode of arrival: ambulatory Limitations: no limitations - History of Present Illness Initial Comments: 25yo male presenting to the ER for alcohol withdrawl and rib pain. pt states that he is withdrawing from alcohol. he states he has been drinking a fifth a day for the past 4 days, he states his last drink initially was last night but he began hallucinating this morning, seeing things that werent there and felt degroot per shaky with headache and abdominal pain. Patient denies vomiting, admits to nausea, he states he also noted just under his left arm pit was hurting, he states he doesnt know if he fell or not but doesnt believe so, he states that there is one specific area that he can find and pin point the pain. Pt denies dyspnea, cancer, hemoptysis, leg swelling, calf pain, recent surgeries, travel or immobilization/fractures. Patient denies localized abdominal pain, denies bruising. patient denies neck pain, abrasion, scalp hematomas. Pt denies substernal chest pain. pt has no additional complaints. upon arrival he appears well nontoxic in no acute distress. - Related Data Home Medications Medication Instructions Recorded Confirmed Acetaminophen Tab [Tylenol] 500 mg PO Q4-6H PRN 06/01/20 06/01/20 Ibuprofen [Motrin Ib] 600 mg PO Q4-6H PRN 06/01/20 06/01/20 Previous Rx's Medication Instructions Recorded chlordiazePOXIDE HCl [Librium] 10 mg PO TID 3 Days #9 capsule 06/01/20 Allergies Allergy/AdvReac Type Severity Reaction Status Date / Time cat dander Allergy Rash/Hives Verified 06/01/20 09:58 Review of Systems ROS Statement: Those systems with pertinent positive or pertinent negative responses have been documented in the HPI. ROS Other: All systems not noted in ROS Statement are negative. Past Medical History Past Medical History: GERD/Reflux Additional Past Medical History / Comment(s): ETOH abuse with withdrawals (tremors/abdominal pain), past elevated LFTs History of Any Multi-Drug Resistant Organisms: None Reported Past Surgical History: Hernia Repair, Orthopedic Surgery Additional Past Surgical History / Comment(s): right arm surgery for severed nerve, hernia repair as a child, undescended testicle as a child, Past Anesthesia/Blood Transfusion Reactions: No Reported Reaction Past Psychological History: Depression Smoking Status: Never smoker Past Alcohol Use History: Heavy Past Drug Use History: Marijuana - Past Family History Mother Family Medical History: Diabetes Mellitus Additional Family Medical History / Comment(s): family history on maternal side of diabetes Father Additional Family Medical History / Comment(s): Pt has never met his father but knows that he is an alcoholic and agoraphobic. General Exam - General Exam Comments Initial Comments: General: The patient is awake and alert, in no distress, does not appear altered Eye: +3mm pupils are equal, round and reactive to light, extra-ocular movements are intact. No nystagmus. There is normal conjunctiva bilaterally. No signs of icterus. Ears, nose, mouth and throat: There are moist mucous membranes and no oral lesions. No raccoon or Kumar sign Neck: The neck is supple, there is no tenderness or JVD. Cardiovascular: There is a regular rate and rhythm. No murmur, rub or gallop is appreciated. Respiratory: Lungs are clear to auscultation, respirations are non-labored, breath sounds are equal. No wheezes, stridor, rales, or rhonchi. Gastrointestinal: Soft, non-distended, mild diffuse tenderness, abdomen without masses or organomegaly noted. There is no rebound or guarding present. No CVA tenderness. Musculoskeletal: No midline tenderness to palpation fo the cervical, thoracic or lumbar spine. POint localized tenderness over the left mid rib. Normal ROM, no tenderness. Strength 5/5. Sensation intact. radial pulses equal bilaterally 2+. Neurological: A&O x 3. CN II-XII intact, There are no obvious motor or sensory deficits. Speech is normal. No tremor or nystagmus appreciated. calm. gait normal, no ataxia. finger to nose and heel to alicea b/l smooth and coordinated. Skin: Skin is warm and dry and no rashes or lesions are noted. Psychiatric: Cooperative, appropriate mood & affect, normal judgment. Limitations: no limitations Course Vital Signs 06/01/20 06/01/20 06/01/20 09:55 10:58 11:00 Temperature 98.9 F Pulse Rate 106 H 82 82 Respiratory 18 18 18 Rate Blood Pressure 138/91 144/84 O2 Sat by Pulse 97 98 98 Oximetry 06/01/20 06/01/20 12:00 12:21 Temperature 98.9 F Pulse Rate 90 90 Respiratory 18 18 Rate Blood Pressure 131/81 131/81 O2 Sat by Pulse 98 98 Oximetry Medical Decision Making - Medical Decision Making nontoxic appearing 25yo male presenting for withdrawl. no tremor, nystagmus. he states he sees shadows that he thinks arent there at times. but denies gross hallucinations, no seeing things/people. No auditory hallucinations. Patient has coordinated finger-nose [id number] gait without ataxia. Improvement of symptoms with Ativan. Rib fracture on CT. Abdomen no acute process. Pt states he has a mild headache, denies evidence of head trauma states he doesnt believe he hit his head. Labs stable. pt offered admission vs outpatient withdrawal treatment. pt who does not appear altered nor intoxicated was provided resources for alcohol abuse and discharged after discussing case/injuries with Dr. Bucio, - Lab Data Result diagrams: 06/01/20 10:20 06/01/20 10:20 Lab Results 06/01/20 06/01/20 06/01/20 Range/Units 10:20 10:20 10:20 WBC 14.2 H (3.8-10.6) k/uL RBC 5.30 (4.30-5.90) m/uL Hgb 15.5 (13.0-17.5) gm/dL Hct 44.5 (39.0-53.0) % MCV 84.1 (80.0-100.0) fL MCH 29.3 (25.0-35.0) pg MCHC 34.9 (31.0-37.0) g/dL RDW 12.6 (11.5-15.5) % Plt Count 284 (150-450) k/uL MPV 9.0 Neutrophils % 84 % Lymphocytes % 8 % Monocytes % 6 % Eosinophils % 1 % Basophils % 1 % Neutrophils # 11.9 H (1.3-7.7) k/uL Lymphocytes # 1.1 (1.0-4.8) k/uL Monocytes # 0.9 (0-1.0) k/uL Eosinophils # 0.2 (0-0.7) k/uL Basophils # 0.1 (0-0.2) k/uL PT 10.5 (9.0-12.0) sec INR 1.0 (<1.2) APTT 23.5 (22.0-30.0) sec D-Dimer 0.82 H (<0.60) mg/L FEU Sodium 138 (137-145) mmol/L Potassium 3.3 L (3.5-5.1) mmol/L Chloride 94 L (98-107) mmol/L Carbon Dioxide 27 (22-30) mmol/L Anion Gap 17 mmol/L BUN 9 (9-20) mg/dL Creatinine 0.89 (0.66-1.25) mg/dL Est GFR (CKD-EPI)AfAm >90 (>60 ml/min/1.73 sqM) Est GFR (CKD-EPI)NonAf >90 (>60 ml/min/1.73 sqM) Glucose 110 H (74-99) mg/dL Calcium 10.2 (8.4-10.2) mg/dL Phosphorus 2.6 (2.5-4.5) mg/dL Magnesium 1.5 L (1.6-2.3) mg/dL Total Bilirubin 1.4 H (0.2-1.3) mg/dL AST 53 (17-59) U/L ALT 36 (4-49) U/L Alkaline Phosphatase 84 (38-126) U/L Troponin I (0.000-0.034) ng/mL Total Protein 8.5 H (6.3-8.2) g/dL Albumin 5.2 H (3.5-5.0) g/dL Lipase 84 (23-300) U/L Urine Opiates Screen (NotDetected) Ur Oxycodone Screen (NotDetected) Urine Methadone Screen (NotDetected) Ur Propoxyphene Screen (NotDetected) Ur Barbiturates Screen (NotDetected) U Tricyclic Antidepress (NotDetected) Ur Phencyclidine Scrn (NotDetected) Ur Amphetamines Screen (NotDetected) U Methamphetamines Scrn (NotDetected) U Benzodiazepines Scrn (NotDetected) Urine Cocaine Screen (NotDetected) U Marijuana (THC) Screen (NotDetected) Serum Alcohol 21 mg/dL 06/01/20 06/01/20 Range/Units 10:20 10:20 WBC (3.8-10.6) k/uL RBC (4.30-5.90) m/uL Hgb (13.0-17.5) gm/dL Hct (39.0-53.0) % MCV (80.0-100.0) fL MCH (25.0-35.0) pg MCHC (31.0-37.0) g/dL RDW (11.5-15.5) % Plt Count (150-450) k/uL MPV Neutrophils % % Lymphocytes % % Monocytes % % Eosinophils % % Basophils % % Neutrophils # (1.3-7.7) k/uL Lymphocytes # (1.0-4.8) k/uL Monocytes # (0-1.0) k/uL Eosinophils # (0-0.7) k/uL Basophils # (0-0.2) k/uL PT (9.0-12.0) sec INR (<1.2) APTT (22.0-30.0) sec D-Dimer (<0.60) mg/L FEU Sodium (137-145) mmol/L Potassium (3.5-5.1) mmol/L Chloride (98-107) mmol/L Carbon Dioxide (22-30) mmol/L Anion Gap mmol/L BUN (9-20) mg/dL Creatinine (0.66-1.25) mg/dL Est GFR (CKD-EPI)AfAm (>60 ml/min/1.73 sqM) Est GFR (CKD-EPI)NonAf (>60 ml/min/1.73 sqM) Glucose (74-99) mg/dL Calcium (8.4-10.2) mg/dL Phosphorus (2.5-4.5) mg/dL Magnesium (1.6-2.3) mg/dL Total Bilirubin (0.2-1.3) mg/dL AST (17-59) U/L ALT (4-49) U/L Alkaline Phosphatase (38-126) U/L Troponin I <0.012 (0.000-0.034) ng/mL Total Protein (6.3-8.2) g/dL Albumin (3.5-5.0) g/dL Lipase (23-300) U/L Urine Opiates Screen Not Detected (NotDetected) Ur Oxycodone Screen Not Detected (NotDetected) Urine Methadone Screen Not Detected (NotDetected) Ur Propoxyphene Screen Not Detected (NotDetected) Ur Barbiturates Screen Not Detected (NotDetected) U Tricyclic Antidepress Not Detected (NotDetected) Ur Phencyclidine Scrn Not Detected (NotDetected) Ur Amphetamines Screen Not Detected (NotDetected) U Methamphetamines Scrn Not Detected (NotDetected) U Benzodiazepines Scrn Not Detected (NotDetected) Urine Cocaine Screen Not Detected (NotDetected) U Marijuana (THC) Screen Detected H (NotDetected) Serum Alcohol mg/dL Disposition Clinical Impression: Fracture of seven ribs of left side, Alcohol withdrawal, Hypomagnesemia, Hypokalemia Disposition: HOME SELF-CARE Condition: Good Instructions (If sedation given, give patient instructions): Rib Fracture (ED), Alcohol Withdrawal (ED) Additional Instructions: Please use medication as discussed. Please follow-up with family doctor in the next 2 days. Please use alcohol resources as discussed. Please return to emergency room if the symptoms increase or worsen or for any other concerns. Prescriptions: chlordiazePOXIDE HCl [Librium] 10 mg PO TID 3 Days #9 capsule Is patient prescribed a controlled substance at d/c from ED?: No Referrals: Shay Tom MD [Primary Care Provider] - 1-2 days Time of Disposition: 12:06
[2020-06-01 10:30] LABS: Basophils # (A) 0.1 k/uL (0-0.2); Basophils % (A) 1 %; Eosinophils # (A) 0.2 k/uL (0-0.7); Eosinophils % (A) 1 %; HCT 44.5 % (39.0-53.0); HGB 15.5 gm/dL (13.0-17.5); Lymphocytes # (A) 1.1 k/uL (1.0-4.8); Lymphocytes % (A) 8 %; MCH 29.3 pg (25.0-35.0); MCHC 34.9 g/dL (31.0-37.0); MCV 84.1 fL (80.0-100.0); Monocytes # (A) 0.9 k/uL (0-1.0); Monocytes % (A) 6 %; Neutrophils # (A) 11.9 k/uL (1.3-7.7); Neutrophils % (A) 84 %; Platelet Count 284 k/uL (150-450); RDW 12.6 % (11.5-15.5); WBC 14.2 k/uL (3.8-10.6)
[2020-06-01 10:42] LABS: ALT 36 U/L (4-49); AST 53 U/L (17-59); African American GFR (CKD) >90 (>60 ml/min/1.73 sqM); Albumin 5.2 g/dL (3.5-5.0); Alcohol 21 mg/dL; Alkaline Phosphatase 84 U/L (38-126); Anion Gap 17 mmol/L; Blood Urea Nitrogen 9 mg/dL (9-20); Calcium 10.2 mg/dL (8.4-10.2); Carbon Dioxide 27 mmol/L (22-30); Chloride 94 mmol/L (98-107); Glucose 110 mg/dL (74-99); Lipase 84 U/L (23-300); Magnesium 1.5 mg/dL (1.6-2.3); Non-African American GFR(CKD) >90 (>60 ml/min/1.73 sqM); Phosphorus 2.6 mg/dL (2.5-4.5); Potassium 3.3 mmol/L (3.5-5.1); Sodium 138 mmol/L (137-145); Total Bilirubin 1.4 mg/dL (0.2-1.3); Total Protein 8.5 g/dL (6.3-8.2)
[2020-06-01] MEDS ORDERED: MAGNESIUM OXIDE 400 MG TAB PO STA (10:46)
[2020-06-01 10:59] LABS: Partial Thromboplastin Time 23.5 sec (22.0-30.0); Prothrombin Time 10.5 sec (9.0-12.0)
[2020-06-01] MEDS ORDERED: POTASSIUM CHLORIDE ER 10 MEQ TAB.ER.PRT PO ONE (11:00)
--- NOTE | 2020-06-01 11:03 | XR ---
Chest x-ray and left RIBS HISTORY: Left rib pain View of the chest and 4 views of the left ribs submitted and correlated prior chest x-ray 07/30/2017 There is left seventh rib fracture with minimal displacement. No pneumothorax or pleural effusion. Ca rdiac mediastinal silhouette is within normal limits. IMPRESSION: Left seventh rib fracture.
[2020-06-01 11:11] LABS: D-Dimer 0.82 mg/L FEU (<0.60)
[2020-06-01 11:24] LABS: Amphetamine Screen,Urine Not Detected (NotDetected); Barbiturate Screen,Urine Not Detected (NotDetected); Benzodiazepines Screen,Urine Not Detected (NotDetected); Cocaine Screen,Urine Not Detected (NotDetected); Methadone Screen, Urine Not Detected (NotDetected); Opiate Screen,Urine Not Detected (NotDetected); Oxycodone Screen, Urine Not Detected (NotDetected); Phencyclidine Screen,Urine Not Detected (NotDetected); Tricyclic Antidepressant,Urine Not Detected (NotDetected); Urn Cannabinoid Scrn Detected (NotDetected)
--- NOTE | 2020-06-01 11:57 | CT ---
EXAMINATION TYPE: CT chest angio for PE DATE OF EXAM: 06/01/2020 COMPARISON: Chest x-ray same date HISTORY: Lt sided rib pain, elevated d dimer, possible fall CT DLP: 1120.8 (CTA chest, CT abd pelvis) mGycm Automated exposure control for dose reduction was used. CONTRAST: CT Chest for pulmonary embolism performed with with IV Contrast, patient injected with 100 mL of Isov ue 370. FINDINGS: LUNGS: The lungs are grossly clear, there is no concerning parenchymal mass or nodule identified. T here is no pleural effusion or pneumothorax seen. The tracheobronchial tree is patent. MEDIASTINUM: There is somewhat limited enhancement of the pulmonary artery and its branches due to ti scarlett, there is no CT evidence for pulmonary embolism. There are no greater than 1 cm hilar or medias tinal lymph nodes. No pericardial effusion is seen. AORTA: No additional significant abnormality is seen. OTHER: Left seventh rib fracture is not displaced. Mild anterior wedging of the seventh and eighth v ertebral bodies is noted may be physiologic, there is vacuum phenomenon at the intervertebral disc le vels at this level. IMPRESSION: Left seventh rib fracture, thoracic vertebral body mild anterior wedging, bone scan or MRI could BE p erformed to assess for acuity of these findings.
--- NOTE | 2020-06-01 12:01 | CT ---
EXAMINATION TYPE: CT abdomen pelvis w con DATE OF EXAM: 06/01/2020 COMPARISON: CT chest same date, CT abdomen 03/16/2020 HISTORY: Lt sided rib and abdomen pain, elevated d dimer, possible fall CT DLP: 1120.8 (CTA chest, CT abd pelvis) mGycm Automated exposure control for dose reduction was used. TECHNIQUE: Helical acquisition of images from the lung bases through the pelvis have been completed. CONTRAST: Performed without Oral Contrast and with IV Contrast, patient injected with 100 mL of Isovue 370. FINDINGS: LUNG BASES: No significant abnormality is appreciated. AORTA: No significant abnormality is appreciated. LIVER/GB: Liver shows low attenuation likely due to hepatic steatosis and the liver is enlarged, gall bladder are unremarkable PANCREAS: No significant abnormality is seen. SPLEEN: No significant abnormality is seen. ADRENALS: No significant abnormality is seen. KIDNEYS: No significant abnormality is seen. REPRODUCTIVE ORGANS: No significant abnormality is seen BOWEL: No significant abnormality is seen. FREE AIR: No Free Air visible. ASCITES: None visible. PELVIC ADENOPATHY: None visualized. RETROPERITONEAL ADENOPATHY: No Retroperitoneal Adenopathy visible. URINARY BLADDER: No significant abnormality is seen. OSSEOUS STRUCTURES: No significant abnormality is seen. IMPRESSION: NO ACUTE MANIC ABNORMALITY. HEPATIC STEATOSIS, HEPATOMEGALY..
[2020-06-01 12:19] VITALS: BP 131/81; PULSE 90
[2020-06-01] MEDS ORDERED: THIAMINE 100 MG TAB PO SCH (17:30)
== END 2020-06-01 12:21 | disposition home or self-care (01) ==
LOC: EC 09:48
DX: F10.239 Alcohol dependence with withdrawal, unspecified (principal); S22.42XA Multiple fractures of ribs, left side, initial encounter for closed fracture; E87.6 Hypokalemia; E83.42 Hypomagnesemia; Z91.048 Other nonmedicinal substance allergy status; Y90.1 Blood alcohol level of 20-39 mg/100 ml
CPT/HCPCS: 36415; 93005; 85379; 80053; 83690; 83735; 84100; 84484; 85025; 85610; 85730; 80306; 71101; 71275; 74177; 99285; 96374; 96372; G0480; J2060; J3411; Q9967; 80320

== ENCOUNTER 2020-07-14 05:01 | Emergency (ER) | payer OTHER ==
[2020-07-14] MEDS ORDERED: SODIUM CHLORIDE 0.9% 1,000 ML IV STA ×2 (05:25)
[2020-07-14] MEDS ORDERED: SODIUM CHLORIDE 0.9% 500 ML 500 ML IV STA (05:25)
[2020-07-14] MEDS ORDERED: LORazepam 2 MG/ML INJ IV STA (05:25)
[2020-07-14] MEDS ORDERED: PANTOPRAZOLE 40 MG/10 ML VIAL IVP STA (05:26)
[2020-07-14] MEDS ORDERED: ONDANSETRON 4 MG/2 ML VIAL IVP STA (05:26)
[2020-07-14 06:03] LABS: Basophils # (A) 0.1 k/uL (0-0.2); Basophils % (A) 1 %; Eosinophils # (A) 0.3 k/uL (0-0.7); Eosinophils % (A) 3 %; HCT 48.1 % (39.0-53.0); HGB 16.2 gm/dL (13.0-17.5); Lymphocytes # (A) 3.2 k/uL (1.0-4.8); Lymphocytes % (A) 37 %; MCHC 33.8 g/dL (31.0-37.0); MCV 85.8 fL (80.0-100.0); Mean Platelet Volume 8.3; Monocytes # (A) 0.8 k/uL (0-1.0); Monocytes % (A) 9 %; Neutrophils # (A) 4.2 k/uL (1.3-7.7); Neutrophils % (A) 48 %; Platelet Count 285 k/uL (150-450); RDW 13.6 % (11.5-15.5); WBC 8.8 k/uL (3.8-10.6)
[2020-07-14 06:14] LABS: ALT 74 U/L (4-49); AST 81 U/L (17-59); African American GFR (CKD) >90 (>60 ml/min/1.73 sqM); Alkaline Phosphatase 62 U/L (38-126); Amylase 98 U/L (30-110); Anion Gap 17 mmol/L; Blood Urea Nitrogen 17 mg/dL (9-20); Calcium 9.6 mg/dL (8.4-10.2); Carbon Dioxide 25 mmol/L (22-30); Chloride 103 mmol/L (98-107); Glucose 115 mg/dL (74-99); Lipase 129 U/L (23-300); Non-African American GFR(CKD) >90 (>60 ml/min/1.73 sqM); Phosphorus 3.3 mg/dL (2.5-4.5); Potassium 4.1 mmol/L (3.5-5.1); Sodium 145 mmol/L (137-145); Total Bilirubin 0.9 mg/dL (0.2-1.3)
[2020-07-14 06:20] LABS: Alcohol 289 mg/dL
--- NOTE | 2020-07-14 06:34 | ED ---
Nausea/Vomiting/Diarrhea HPI - General Chief complaint: Nausea/Vomiting/Diarrhea Stated complaint: Alcohol Withdrawal Time Seen by Provider: 07/14/20 05:03 Source: patient, RN notes reviewed, old records reviewed Mode of arrival: ambulatory Limitations: no limitations - History of Present Illness Initial comments: This is a 25-year-old male will this facility patient presents for what he states is alcohol withdrawal. Patient does not appear to be shaking her altered but does have some nausea and vomiting patient presents with mother who is at bedside. Patient denying any other complaints no fevers chest pain or abdominal pain. Patient denies any other drug or alcohol abuse does admit to drinking today MD complaint: nausea, vomiting -: hour(s) Description of Vomiting: food contents, watery Associated Abdominal Pain: No Radiation: none Severity: moderate Severity scale (1-10): 4 Consistency: constant Improves with: none Worsens with: none Context: alcohol abuse Associated Symptoms: loss of appetite, nausea/vomiting - Related Data Home Medications Medication Instructions Recorded Confirmed Acetaminophen Tab [Tylenol] 500 mg PO Q4-6H PRN 06/01/20 06/01/20 Ibuprofen [Motrin Ib] 600 mg PO Q4-6H PRN 06/01/20 06/01/20 Previous Rx's Medication Instructions Recorded chlordiazePOXIDE HCl [Librium] 10 mg PO TID 3 Days #9 capsule 06/01/20 Allergies Allergy/AdvReac Type Severity Reaction Status Date / Time cat dander Allergy Rash/Hives Verified 07/14/20 05:10 Review of Systems ROS Statement: Those systems with pertinent positive or pertinent negative responses have been documented in the HPI. ROS Other: All systems not noted in ROS Statement are negative. Past Medical History Past Medical History: GERD/Reflux Additional Past Medical History / Comment(s): ETOH abuse with withdrawals (tremors/abdominal pain), past elevated LFTs History of Any Multi-Drug Resistant Organisms: None Reported Past Surgical History: Hernia Repair, Orthopedic Surgery Additional Past Surgical History / Comment(s): right arm surgery for severed nerve, hernia repair as a child, undescended testicle as a child, Past Anesthesia/Blood Transfusion Reactions: No Reported Reaction Past Psychological History: Depression Smoking Status: Never smoker Past Alcohol Use History: Heavy Past Drug Use History: Marijuana - Past Family History Mother Family Medical History: Diabetes Mellitus Additional Family Medical History / Comment(s): family history on maternal side of diabetes Father Additional Family Medical History / Comment(s): Pt has never met his father but knows that he is an alcoholic and agoraphobic. General Exam Limitations: no limitations General appearance: alert, in no apparent distress, appears intoxicated Head exam: Present: atraumatic, normocephalic, normal inspection Eye exam: Present: normal appearance, PERRL, EOMI. Absent: scleral icterus, conjunctival injection, periorbital swelling ENT exam: Present: normal exam, mucous membranes moist Neck exam: Present: normal inspection. Absent: tenderness, meningismus, ly mphadenopathy Respiratory exam: Present: normal lung sounds bilaterally. Absent: respiratory distress, wheezes, rales, rhonchi, stridor Cardiovascular Exam: Present: regular rate, normal rhythm, normal heart sounds. Absent: systolic murmur, diastolic murmur, rubs, gallop, clicks GI/Abdominal exam: Present: soft, normal bowel sounds. Absent: distended, tenderness, guarding, rebound, rigid Extremities exam: Present: normal inspection, full ROM, normal capillary refill. Absent: tenderness, pedal edema, joint swelling, calf tenderness Back exam: Present: normal inspection Neurological exam: Present: alert, oriented X3, CN II-XII intact Psychiatric exam: Present: normal affect, normal mood Skin exam: Present: warm, dry, intact, normal color. Absent: rash Course Vital Signs 07/14/20 07/14/20 05:05 06:50 Temperature 98.1 F 98 F Pulse Rate 112 H 94 Respiratory 20 18 Rate Blood Pressure 139/86 134/89 O2 Sat by Pulse 96 98 Oximetry - Reevaluation(s) Reevaluation #1: Medical record is reviewed Patient symptoms are improved here in the ER Patient informed results and questions have been answered Patient family feel comfortable for discharge Medical Decision Making - Medical Decision Making 25 male to the ER for evaluation of alcohol withdrawal. Patient is intoxicated. We'll be discharged home With care of his mother - Lab Data Result diagrams: 07/14/20 05:55 07/14/20 05:55 Lab Results 07/14/20 07/14/20 Range/Units 05:55 05:55 WBC 8.8 (3.8-10.6) k/uL RBC 5.60 (4.30-5.90) m/uL Hgb 16.2 (13.0-17.5) gm/dL Hct 48.1 (39.0-53.0) % MCV 85.8 (80.0-100.0) fL MCH 29.0 (25.0-35.0) pg MCHC 33.8 (31.0-37.0) g/dL RDW 13.6 (11.5-15.5) % Plt Count 285 (150-450) k/uL MPV 8.3 Neutrophils % 48 % Lymphocytes % 37 % Monocytes % 9 % Eosinophils % 3 % Basophils % 1 % Neutrophils # 4.2 (1.3-7.7) k/uL Lymphocytes # 3.2 (1.0-4.8) k/uL Monocytes # 0.8 (0-1.0) k/uL Eosinophils # 0.3 (0-0.7) k/uL Basophils # 0.1 (0-0.2) k/uL Sodium 145 (137-145) mmol/L Potassium 4.1 (3.5-5.1) mmol/L Chloride 103 (98-107) mmol/L Carbon Dioxide 25 (22-30) mmol/L Anion Gap 17 mmol/L BUN 17 (9-20) mg/dL Creatinine 1.05 (0.66-1.25) mg/dL Est GFR (CKD-EPI)AfAm >90 (>60 ml/min/1.73 sqM) Est GFR (CKD-EPI)NonAf >90 (>60 ml/min/1.73 sqM) Glucose 115 H (74-99) mg/dL Calcium 9.6 (8.4-10.2) mg/dL Phosphorus 3.3 (2.5-4.5) mg/dL Magnesium 2.0 (1.6-2.3) mg/dL Total Bilirubin 0.9 (0.2-1.3) mg/dL AST 81 H (17-59) U/L ALT 74 H (4-49) U/L Alkaline Phosphatase 62 (38-126) U/L Total Protein 8.0 (6.3-8.2) g/dL Albumin 5.0 (3.5-5.0) g/dL Amylase 98 (30-110) U/L Lipase 129 (23-300) U/L Serum Alcohol 289 H* mg/dL Disposition Clinical Impression: Alcohol intoxication Disposition: HOME SELF-CARE Condition: Fair Instructions (If sedation given, give patient instructions): Alcohol Intoxication (ED) Is patient prescribed a controlled substance at d/c from ED?: No Referrals: Shay Tom MD [Primary Care Provider] - 1-2 days
[2020-07-14 06:51] VITALS: BP 134/89; PULSE 94; RESP 18; TEMP 98
== END 2020-07-14 06:51 | disposition home or self-care (01) ==
LOC: EC 05:01
DX: F10.129 Alcohol abuse with intoxication, unspecified (principal); K21.9 Gastro-esophageal reflux disease without esophagitis; F12.90 Cannabis use, unspecified, uncomplicated; F32.9 Major depressive disorder, single episode, unspecified; Z79.1 Long term (current) use of non-steroidal anti-inflammatories (NSAID)
CPT/HCPCS: 36415; 80053; 82150; 83690; 83735; 84100; 85025; 99284; 96374; 96375; 96361; G0480; J2060; J2405; C9113; 80320

== ENCOUNTER 2020-08-06 10:07 | Emergency (ER) | payer OTHER ==
[2020-08-06] MEDS ORDERED: SODIUM CHLORIDE 0.9% 1,000 ML IV STA (10:25)
[2020-08-06] MEDS ORDERED: ONDANSETRON 4 MG/2 ML VIAL IVP STA (10:25)
[2020-08-06] MEDS ORDERED: LORazepam 2 MG/ML INJ IV STA (10:25)
--- NOTE | 2020-08-06 10:30 | ED ---
Nausea/Vomiting/Diarrhea HPI - General Chief complaint: Nausea/Vomiting/Diarrhea Stated complaint: alcohol withdrawals Time Seen by Provider: 08/06/20 10:19 Source: patient Mode of arrival: ambulatory Limitations: no limitations - History of Present Illness Initial comments: 25-year-old male with history of alcohol abuse presents to the emergency depart ment with chief complaint alcohol withdrawal. Patient states typically goes on 5 days of present drinking then stops for several days. Typically drinks about a fifth of vodka. He states his last drink was about 12-14 hours ago and now he's developed nausea with multiple episodes of nonbilious and nonbloody vomiting. He also reports increased anxiety and tremors in his hands. He denies any chest pain shortness of breath. Denies any visual or auditory hallucinations. States he previously attempted going to an alcohol detox center once but failed. Denies seizures. - Related Data Home Medications Medication Instructions Recorded Confirmed Omeprazole 20 mg PO DAILY 08/06/20 08/06/20 Previous Rx's Medication Instructions Recorded LORazepam [Ativan] 1 mg PO HS 3 Days #3 tab 08/06/20 Ondansetron Odt [Zofran Odt] 4 mg PO Q8HR PRN #14 tab 08/06/20 Allergies Allergy/AdvReac Type Severity Reaction Status Date / Time cat dander Allergy Rash/Hives Verified 08/06/20 10:38 Review of Systems ROS Statement: Those systems with pertinent positive or pertinent negative responses have been documented in the HPI. ROS Other: All systems not noted in ROS Statement are negative. Past Medical History Past Medical History: GERD/Reflux Additional Past Medical History / Comment(s): ETOH abuse with withdrawals (tremors/abdominal pain), past elevated LFTs History of Any Multi-Drug Resistant Organisms: None Reported Past Surgical History: Hernia Repair, Orthopedic Surgery Additional Past Surgical History / Comment(s): right arm surgery for severed nerve, hernia repair as a child, undescended testicle as a child, Past Anesthesia/Blood Transfusion Reactions: No Reported Reaction Past Psychological History: Depression Smoking Status: Never smoker Past Alcohol Use History: Heavy Past Drug Use History: Marijuana - Past Family History Mother Family Medical History: Diabetes Mellitus Additional Family Medical History / Comment(s): family history on maternal side of diabetes Father Additional Family Medical History / Comment(s): Pt has never met his father but knows that he is an alcoholic and agoraphobic. General Exam Limitations: no limitations General appearance: alert, in no apparent distress, anxious Head exam: Present: atraumatic, normocephalic, normal inspection Eye exam: Present: normal appearance, PERRL, EOMI Pupils: Present: normal accommodation ENT exam: Present: normal exam, normal oropharynx, mucous membranes moist Neck exam: Present: normal inspection, full ROM. Absent: tenderness Respiratory exam: Present: normal lung sounds bilaterally. Absent: respiratory distress Cardiovascular Exam: Present: normal rhythm, tachycardia, normal heart sounds GI/Abdominal exam: Present: soft, tenderness (Mild epigastric tenderness). Absent: distended, guarding Extremities exam: Present: normal inspection, full ROM, normal capillary refill. Absent: tenderness Back exam: Present: normal inspection, full ROM. Absent: tenderness, CVA tenderness (R), CVA tenderness (L) Neurological exam: Present: alert, oriented X3 Psychiatric exam: Present: normal affect, normal mood, anxious Skin exam: Present: warm, dry, intact, normal color Course Vital Signs 08/06/20 08/06/20 08/06/20 10:07 10:11 11:11 Temperature 97.6 F Pulse Rate 131 H Respiratory 16 20 20 Rate O2 Sat by Pulse 96 Oximetry 08/06/20 12:11 Temperature Pulse Rate Respiratory 20 Rate O2 Sat by Pulse Oximetry Medical Decision Making - Medical Decision Making 25-year-old male with history of alcohol abuse presents to emergency Department with a chief complaint of alcohol withdrawal. On initial evaluation, patient is tachycardic, diaphoretic with tremors in the hands. He did have decreased oral intake due to vomiting for past 2-3 days. Patient does appear to be clinically dehydrated with dry mucous membranes. He was given 1 L IV bolus fluids. Patient was also given Protonix, Zofran and Ativan. CBC reveals a lactic acid of 21.2. Anion gap 22. This could be reactive secondary to the vomiting. Patient does not have any cough or any urinary problems. No significant abdominal pain. Trace amount of ketones. BUN/creatinine within normal limits. Elevated amylase and lipase but not enough to diagnose with pancreatitis. Serum alcohol 79. On reevaluation, patient reports significant improvement in sympto ms. Tremors have resolved as well as the vomiting. Patient does not have any homicidal, suicidal thoughts or ideations. Did offer him psychiatric evaluation or inpatient management, he declined. Patient reports that he should be able to manage his symptoms at home. Mother is also present to help with his withdrawals. I gave him Zofran and Ativan to help cope with the symptoms. Advise him to follow with the primary care physician. Advised him to immediately return to emergency department if he continues to have any problems. Case discussed with Dr. Metcalf. - Lab Data Result diagrams: 08/06/20 10:30 08/06/20 10:30 Lab Results 08/06/20 08/06/20 08/06/20 Range/Units 10:30 10:30 10:54 WBC 21.2 H (3.8-10.6) k/uL RBC 5.56 (4.30-5.90) m/uL Hgb 16.8 (13.0-17.5) gm/dL Hct 47.2 (39.0-53.0) % MCV 84.9 (80.0-100.0) fL MCH 30.3 (25.0-35.0) pg MCHC 35.7 (31.0-37.0) g/dL RDW 12.5 (11.5-15.5) % Plt Count 372 (150-450) k/uL MPV 8.4 Neutrophils % 79 % Lymphocytes % 12 % Monocytes % 7 % Eosinophils % 1 % Basophils % 0 % Neutrophils # 16.8 H (1.3-7.7) k/uL Lymphocytes # 2.5 (1.0-4.8) k/uL Monocytes # 1.4 H (0-1.0) k/uL Eosinophils # 0.2 (0-0.7) k/uL Basophils # 0.1 (0-0.2) k/uL Sodium 137 (137-145) mmol/L Potassium 3.4 L (3.5-5.1) mmol/L Chloride 91 L (98-107) mmol/L Carbon Dioxide 24 (22-30) mmol/L Anion Gap 22 mmol/L BUN 16 (9-20) mg/dL Creatinine 1.12 (0.66-1.25) mg/dL Est GFR (CKD-EPI)AfAm >90 (>60 ml/min/1.73 sqM) Est GFR (CKD-EPI)NonAf 90 (>60 ml/min/1.73 sqM) Glucose 116 H (74-99) mg/dL Calcium 9.8 (8.4-10.2) mg/dL Total Bilirubin 1.1 (0.2-1.3) mg/dL AST 63 H (17-59) U/L ALT 39 (4-49) U/L Alkaline Phosphatase 91 (38-126) U/L Total Protein 8.6 H (6.3-8.2) g/dL Albumin 5.2 H (3.5-5.0) g/dL Amylase 161 H (30-110) U/L Lipase 592 H (23-300) U/L Urine Color Yellow Urine Appearance Clear (Clear) Urine pH 6.5 (5.0-8.0) Ur Specific [place] 1.018 (1.001-1.035) Urine Protein 1+ H (Negative) Urine Glucose (UA) Negative (Negative) Urine Ketones Trace H (Negative) Urine Blood Negative (Negative) Urine Nitrite Negative (Negative) Urine Bilirubin Negative (Negative) Urine Urobilinogen <2.0 (<2.0) mg/dL Ur Leukocyte Esterase Negative (Negative) Urine RBC 1 (0-5) /hpf Urine WBC 1 (0-5) /hpf Ur Squamous Epith Cells <1 (0-4) /hpf Amorphous Sediment Rare H (None) /hpf Urine Bacteria Rare H (None) /hpf Hyaline Casts 27 H (0-2) /lpf Urine Mucus Rare H (None) /hpf Serum Alcohol mg/dL 08/06/20 Range/Units 11:40 WBC (3.8-10.6) k/uL RBC (4.30-5.90) m/uL Hgb (13.0-17.5) gm/dL Hct (39.0-53.0) % MCV (80.0-100.0) fL MCH (25.0-35.0) pg MCHC (31.0-37.0) g/dL RDW (11.5-15.5) % Plt Count (150-450) k/uL MPV Neutrophils % % Lymphocytes % % Monocytes % % Eosinophils % % Basophils % % Neutrophils # (1.3-7.7) k/uL Lymphocytes # (1.0-4.8) k/uL Monocytes # (0-1.0) k/uL Eosinophils # (0-0.7) k/uL Basophils # (0-0.2) k/uL Sodium (137-145) mmol/L Potassium (3.5-5.1) mmol/L Chloride (98-107) mmol/L Carbon Dioxide (22-30) mmol/L Anion Gap mmol/L BUN (9-20) mg/dL Creatinine (0.66-1.25) mg/dL Est GFR (CKD-EPI)AfAm (>60 ml/min/1.73 sqM) Est GFR (CKD-EPI)NonAf (>60 ml/min/1.73 sqM) Glucose (74-99) mg/dL Calcium (8.4-10.2) mg/dL Total Bilirubin (0.2-1.3) mg/dL AST (17-59) U/L ALT (4-49) U/L Alkaline Phosphatase (38-126) U/L Total Protein (6.3-8.2) g/dL Albumin (3.5-5.0) g/dL Amylase (30-110) U/L Lipase (23-300) U/L Urine Color Urine Appearance (Clear) Urine pH (5.0-8.0) Ur Specific [place] (1.001-1.035) Urine Protein (Negative) Urine Glucose (UA) (Negative) Urine Ketones (Negative) Urine Blood (Negative) Urine Nitrite (Negative) Urine Bilirubin (Negative) Urine Urobilinogen (<2.0) mg/dL Ur Leukocyte Esterase (Negative) Urine RBC (0-5) /hpf Urine WBC (0-5) /hpf Ur Squamous Epith Cells (0-4) /hpf Amorphous Sediment (None) /hpf Urine Bacteria (None) /hpf Hyaline Casts (0-2) /lpf Urine Mucus (None) /hpf Serum Alcohol 79 mg/dL Disposition Clinical Impression: Alcohol withdrawal Disposition: HOME SELF-CARE Condition: Stable Instructions (If sedation given, give patient instructions): Alcohol Withdrawal (DC) Additional Instructions: Take prescribed medication as directed. Return to emergency department if symptoms worsen. Prescriptions: LORazepam [Ativan] 1 mg PO HS 3 Days #3 tab Ondansetron Odt [Zofran Odt] 4 mg PO Q8HR PRN #14 tab PRN Reason: Nausea Is patient prescribed a controlled substance at d/c from ED?: No Referrals: Shay Tom MD [Primary Care Provider] - 1-2 days Time of Disposition: 12:02
[2020-08-06 10:37] LABS: Basophils # (A) 0.1 k/uL (0-0.2); Basophils % (A) 0 %; Eosinophils # (A) 0.2 k/uL (0-0.7); Eosinophils % (A) 1 %; HCT 47.2 % (39.0-53.0); HGB 16.8 gm/dL (13.0-17.5); Lymphocytes # (A) 2.5 k/uL (1.0-4.8); Lymphocytes % (A) 12 %; MCH 30.3 pg (25.0-35.0); MCHC 35.7 g/dL (31.0-37.0); MCV 84.9 fL (80.0-100.0); Mean Platelet Volume 8.4; Monocytes # (A) 1.4 k/uL (0-1.0); Monocytes % (A) 7 %; Neutrophils # (A) 16.8 k/uL (1.3-7.7); Neutrophils % (A) 79 %; Platelet Count 372 k/uL (150-450); RBC 5.56 m/uL (4.30-5.90); RDW 12.5 % (11.5-15.5); WBC 21.2 k/uL (3.8-10.6)
[2020-08-06 10:50] LABS: ALT 39 U/L (4-49); AST 63 U/L (17-59); African American GFR (CKD) >90 (>60 ml/min/1.73 sqM); Albumin 5.2 g/dL (3.5-5.0); Alkaline Phosphatase 91 U/L (38-126); Amylase 161 U/L (30-110); Anion Gap 22 mmol/L; Blood Urea Nitrogen 16 mg/dL (9-20); Calcium 9.8 mg/dL (8.4-10.2); Carbon Dioxide 24 mmol/L (22-30); Chloride 91 mmol/L (98-107); Glucose 116 mg/dL (74-99); Lipase 592 U/L (23-300); Non-African American GFR(CKD) 90 (>60 ml/min/1.73 sqM); Potassium 3.4 mmol/L (3.5-5.1); Sodium 137 mmol/L (137-145); Total Bilirubin 1.1 mg/dL (0.2-1.3); Total Protein 8.6 g/dL (6.3-8.2)
[2020-08-06 11:05] LABS: Amorphous Sediment,Urine Rare /hpf; Appearance,Urine Clear (Clear); Bacteria,Urine Rare /hpf; Bilirubin,Urine Negative (Negative); Blood,Urine Negative (Negative); Color,Urine Yellow; Glucose,Urine (UA) Negative (Negative); Hyaline Casts,Urine 27 /lpf (0-2); Ketones,Urine Trace (Negative); Leukocyte Esterase,Urine Negative (Negative); Mucus,Urine Rare /hpf; Nitrite,Urine Negative (Negative); PH, Urine 6.5 (5.0-8.0); Protein,Urine 1+ (Negative); RBC,Urine 1 /hpf (0-5); Specific Gravity,Urine 1.018 (1.001-1.035); Squamous Epithelial Cell,Urine <1 /hpf (0-4); Urobilinogen,Urine <2.0 mg/dL (<2.0); WBC,Urine 1 /hpf (0-5)
[2020-08-06 12:34] VITALS: BP 146/84; PULSE 96; RESP 18; TEMP 99.2
== END 2020-08-06 12:34 | disposition home or self-care (01) ==
LOC: EC 10:07
DX: F10.239 Alcohol dependence with withdrawal, unspecified (principal); K21.9 Gastro-esophageal reflux disease without esophagitis; F32.9 Major depressive disorder, single episode, unspecified
CPT/HCPCS: 36415; 80053; 82150; 83690; 85025; 81001; 99284; 96374; 96375; 96361; G0480; J2060; J2405; 80320

== ENCOUNTER 2020-09-20 23:10 | Emergency (ER) | payer OTHER ==
[2020-09-20] MEDS ORDERED: FAMOTIDINE 20 MG TAB PO STA (23:33)
[2020-09-20] MEDS ORDERED: LORazepam 2 MG/ML INJ IM STA (23:33)
[2020-09-20] MEDS ORDERED: ONDANSETRON ODT 4 MG TAB PO STA (23:33)
[2020-09-20 23:56] LABS: Appearance,Urine Clear (Clear); Bilirubin,Urine Negative (Negative); Blood,Urine Negative (Negative); Color,Urine Light Yellow; Glucose,Urine (UA) Negative (Negative); Ketones,Urine Negative (Negative); Leukocyte Esterase,Urine Negative (Negative); Nitrite,Urine Negative (Negative); Protein,Urine Negative (Negative); Specific Gravity,Urine 1.012 (1.001-1.035); Urobilinogen,Urine <2.0 mg/dL (<2.0)
[2020-09-21 00:16] LABS: Amphetamine Screen,Urine Not Detected (NotDetected); Barbiturate Screen,Urine Not Detected (NotDetected); Benzodiazepines Screen,Urine Not Detected (NotDetected); Cocaine Screen,Urine Not Detected (NotDetected); Methadone Screen, Urine Not Detected (NotDetected); Opiate Screen,Urine Not Detected (NotDetected); Oxycodone Screen, Urine Not Detected (NotDetected); Phencyclidine Screen,Urine Not Detected (NotDetected); Tricyclic Antidepressant,Urine Not Detected (NotDetected); Urn Cannabinoid Scrn Detected (NotDetected)
--- NOTE | 2020-09-21 00:17 | ED ---
Psych HPI - General Source: patient Mode of arrival: ambulatory <Norma Young - Last Filed: 09/21/20 03:29> <Francis Jung - Last Filed: 09/21/20 05:25> - General Chief Complaint: Psychiatric Symptoms Stated Complaint: alcohol withdraw, abd pain Time Seen by Provider: 09/20/20 23:17 - History of Present Illness Initial Comments: 25 year-old female patient presents to the emergency department for evaluation for alcohol withdrawal, depression, suicidal ideation. States that his last drink was 7-8 hours ago. States that he has been feeling increasingly depressed over the last couple weeks. States his plan is to shoot himself. Denies any street drug use. Denies any current physical illnesses or injuries. Has had similar symptoms in the past. Patient denies any recent rash, fever, chills, cough, shortness of breath, chest pain, abdominal pain, nausea, vomiting, diarrhea, constipation, back pain, numbness, tingling, dizziness, weakness, hematuria, dysuria, urinary urgency, urinary frequency, headache, visual changes, or any other complaints. (Norma Young) - Related Data Home Medications Medication Instructions Recorded Confirmed Omeprazole 20 mg PO DAILY 08/06/20 08/06/20 Previous Rx's Medication Instructions Recorded LORazepam [Ativan] 1 mg PO HS 3 Days #3 tab 08/06/20 Ondansetron Odt [Zofran Odt] 4 mg PO Q8HR PRN #14 tab 08/06/20 Allergies Allergy/AdvReac Type Severity Reaction Status Date / Time cat dander Allergy Rash/Hives Verified 09/20/20 23:14 Review of Systems ROS Other: All systems not noted in ROS Statement are negative. <Norma Young - Last Filed: 09/21/20 03:29> ROS Other: All systems not noted in ROS Statement are negative. <Francis Jung - Last Filed: 09/21/20 05:25> ROS Statement: Those systems with pertinent positive or pertinent negative responses have been documented in the HPI. Past Medical History Past Medical History: GERD/Reflux Additional Past Medical History / Comment(s): ETOH abuse with withdrawals (tremors/abdominal pain), past elevated LFTs, History of Any Multi-Drug Resistant Organisms: None Reported Past Surgical History: Hernia Repair, Orthopedic Surgery Additional Past Surgical History / Comment(s): right arm surgery for severed nerve, hernia repair as a child, undescended testicle as a child, Past Anesthesia/Blood Transfusion Reactions: No Reported Reaction Past Psychological History: Depression Smoking Status: Never smoker Past Alcohol Use History: Abuse, Daily, Heavy Past Drug Use History: Marijuana - Past Family History Mother Family Medical History: Diabetes Mellitus Additional Family Medical History / Comment(s): family history on maternal side of diabetes Father Additional Family Medical History / Comment(s): Pt has never met his father but knows that he is an alcoholic and agoraphobic. <Norma Young - Last Filed: 09/21/20 03:29> General Exam Limitations: no limitations General appearance: alert, in no apparent distress, other (This is a well- developed, well-nourished adult male patient in no acute distress. Vital signs upon presentation are temperature 97.8F, pulse 100, respirations 18, blood pressure 150/87, pulse ox 97% on room air.) Eye exam: Present: normal appearance, PERRL, EOMI. Absent: scleral icterus, conjunctival injection, periorbital swelling ENT exam: Present: normal exam, normal oropharynx, mucous membranes moist Respiratory exam: Present: normal lung sounds bilaterally. Absent: respiratory distress, wheezes, rales, rhonchi, stridor Cardiovascular Exam: Present: regular rate, normal rhythm, normal heart sounds. Absent: systolic murmur, diastolic murmur, rubs, gallop, clicks Neurological exam: Present: alert, oriented X3, CN II-XII intact Psychiatric exam: Present: depressed, suicidal ideation. Absent: homicidal ideation Skin exam: Present: warm, dry, intact, normal color. Absent: rash <Norma Young M - Last Filed: 09/21/20 03:29> Course <Francis Jung - Last Filed: 09/21/20 05:25> Vital Signs 09/20/20 09/21/20 23:11 00:14 Temperature 97.8 F Pulse Rate 100 93 Respiratory 18 20 Rate Blood Pressure 150/87 127/90 O2 Sat by Pulse 97 99 Oximetry - Reevaluation(s) Reevaluation #1: 09/21/20 05:24 Medically clear for psychiatric evaluation (Francis Jung) Medical Decision Making <Norma Young - Last Filed: 09/21/20 03:29> <Francis Jung - Last Filed: 09/21/20 05:25> - Medical Decision Making 25-year-old male patient presents to the emergency department today for evaluation of alcohol jaw and depression. Does report suicidal ideation plan is to use a gun to shoot himself. Patient was given Ativan to aid with withdrawal symptoms. He will be evaluated by emergency psychiatric services. Care is handed over to my attending Dr. Jung at 0330 09/21/20. (Norma Young) A 25-year-old male seen and evaluated psychiatry, patient be discharged home for outpatient psychiatric evaluation and treatment (Francis Jung) - Lab Data Lab Results 09/20/20 09/20/20 Range/Units 23:27 23:28 Urine Color Light Yellow Urine Appearance Clear (Clear) Urine pH 7.0 (5.0-8.0) Ur Specific [place] 1.012 (1.001-1.035) Urine Protein Negative (Negative) Urine Glucose (UA) Negative (Negative) Urine Ketones Negative (Negative) Urine Blood Negative (Negative) Urine Nitrite Negative (Negative) Urine Bilirubin Negative (Negative) Urine Urobilinogen <2.0 (<2.0) mg/dL Ur Leukocyte Esterase Negative (Negative) Urine Opiates Screen Not Detected (NotDetected) Ur Oxycodone Screen Not Detected (NotDetected) Urine Methadone Screen Not Detected (NotDetected) Ur Propoxyphene Screen Not Detected (NotDetected) Ur Barbiturates Screen Not Detected (NotDetected) U Tricyclic Antidepress Not Detected (NotDetected) Ur Phencyclidine Scrn Not Detected (NotDetected) Ur Amphetamines Screen Not Detected (NotDetected) U Methamphetamines Scrn Not Detected (NotDetected) U Benzodiazepines Scrn Not Detected (NotDetected) Urine Cocaine Screen Not Detected (NotDetected) U Marijuana (THC) Screen Detected H (NotDetected) Disposition <Norma Young - Last Filed: 09/21/20 03:29> Is patient prescribed a controlled substance at d/c from ED?: No <Francis Jung - Last Filed: 09/21/20 05:25> Clinical Impression: Acute psychosis, Alcohol intoxication Disposition: HOME SELF-CARE Condition: Fair Instructions (If sedation given, give patient instructions): Alcohol Intoxication (ED) Referrals: Shay Tom MD [Primary Care Provider] - 1-2 days
[2020-09-21 05:38] VITALS: BP 126/84; PULSE 88; RESP 18; TEMP 98
== END 2020-09-21 05:38 | disposition home or self-care (01) ==
LOC: EC 23:10
DX: F23 Brief psychotic disorder (principal); F10.129 Alcohol abuse with intoxication, unspecified; F32.9 Major depressive disorder, single episode, unspecified; F12.90 Cannabis use, unspecified, uncomplicated; K21.9 Gastro-esophageal reflux disease without esophagitis; Z79.899 Other long term (current) drug therapy; Y90.9 Presence of alcohol in blood, level not specified
CPT/HCPCS: 82075; 81003; 80306; 99285; 96372; J2060

== ENCOUNTER 2021-03-24 06:34 | Inpatient (IN) | payer MEDICAID, OTHER ==
[2021-03-24] MEDS ORDERED: SODIUM CHLORIDE 0.9% 1,000 ML IV STA (06:46)
[2021-03-24] MEDS ORDERED: LORazepam 2 MG/ML INJ IV STA (06:46)
[2021-03-24] MEDS ORDERED: ONDANSETRON 4 MG/2 ML VIAL IVP STA (06:46)
[2021-03-24 07:25] LABS: Basophils # (A) 0.1 k/uL (0-0.2); Basophils % (A) 1 %; Eosinophils # (A) 0.2 k/uL (0-0.7); Eosinophils % (A) 3 %; HCT 42.3 % (39.0-53.0); HGB 14.1 gm/dL (13.0-17.5); Lymphocytes # (A) 2.3 k/uL (1.0-4.8); Lymphocytes % (A) 30 %; MCH 28.5 pg (25.0-35.0); MCHC 33.3 g/dL (31.0-37.0); MCV 85.5 fL (80.0-100.0); Mean Platelet Volume 8.7; Monocytes # (A) 0.7 k/uL (0-1.0); Monocytes % (A) 9 %; Neutrophils % (A) 54 %; Platelet Count 289 k/uL (150-450); RBC 4.95 m/uL (4.30-5.90); RDW 12.6 % (11.5-15.5); WBC 7.5 k/uL (3.8-10.6)
[2021-03-24 07:55] LABS: ALT 21 U/L (4-49); AST 51 U/L (17-59); African American GFR (CKD) >90 (>60 ml/min/1.73 sqM); Albumin 4.7 g/dL (3.5-5.0); Alkaline Phosphatase 76 U/L (38-126); Anion Gap 14 mmol/L; Blood Urea Nitrogen 13 mg/dL (9-20); Calcium 10.1 mg/dL (8.4-10.2); Carbon Dioxide 24 mmol/L (22-30); Chloride 101 mmol/L (98-107); Glucose 89 mg/dL (74-99); Non-African American GFR(CKD) >90 (>60 ml/min/1.73 sqM); Potassium 4.1 mmol/L (3.5-5.1); Sodium 139 mmol/L (137-145); Total Bilirubin 0.8 mg/dL (0.2-1.3); Total Protein 7.9 g/dL (6.3-8.2)
[2021-03-24 08:39] LABS: Amorphous Sediment,Urine Rare /hpf; Appearance,Urine Cloudy (Clear); Bilirubin,Urine Negative (Negative); Blood,Urine Negative (Negative); Color,Urine Yellow; Glucose,Urine (UA) Negative (Negative); Ketones,Urine 1+ (Negative); Leukocyte Esterase,Urine Negative (Negative); Mucus,Urine Rare /hpf; Nitrite,Urine Negative (Negative); Protein,Urine Trace (Negative); Specific Gravity,Urine 1.018 (1.001-1.035); Urobilinogen,Urine <2.0 mg/dL (<2.0); WBC,Urine 1 /hpf (0-5)
[2021-03-24 08:41] LABS: Amphetamine Screen,Urine Not Detected (NotDetected); Barbiturate Screen,Urine Not Detected (NotDetected); Benzodiazepines Screen,Urine Not Detected (NotDetected); Cocaine Screen,Urine Not Detected (NotDetected); Methadone Screen, Urine Not Detected (NotDetected); Opiate Screen,Urine Not Detected (NotDetected); Oxycodone Screen, Urine Not Detected (NotDetected); Phencyclidine Screen,Urine Not Detected (NotDetected); Tricyclic Antidepressant,Urine Not Detected (NotDetected); Urn Cannabinoid Scrn Detected (NotDetected)
--- NOTE | 2021-03-24 10:37 | ED ---
Nausea/Vomiting/Diarrhea HPI - General Chief complaint: Nausea/Vomiting/Diarrhea Stated complaint: alcohol withdraw Time Seen by Provider: 03/24/21 06:42 Source: patient, RN notes reviewed Mode of arrival: ambulatory Limitations: no limitations - History of Present Illness Initial comments: Patient is a 26-year-old male that presents to emergency department complaining of nausea vomiting. He notes that he was sober for 6 months but stressors finally got a cracked and he had several drinks yesterday. Patient notes that he's been to the ER several times in the past for withdrawal. Patient denies any history of seizures vaccination or delirium tremens. Patient was otherwise well-appearing while sitting up in bed. He did have several superficial abrasions to his wrist. He did state that he did feel somewhat suicidal and would like to speak psych. He was otherwise in no apparent distress. He denied chest pain shortness of breath headache nausea vomiting diarrhea constipation fever fatigue chills hallucinations delusions or tremors. - Related Data Home Medications Medication Instructions Recorded Confirmed Amitriptyline HCl [Elavil] 10 mg PO HS 03/24/21 03/24/21 Allergies Allergy/AdvReac Type Severity Reaction Status Date / Time cat dander Allergy Rash/Hives Verified 03/24/21 07:55 Review of Systems ROS Statement: Those systems with pertinent positive or pertinent negative responses have been documented in the HPI. ROS Other: All systems not noted in ROS Statement are negative. Past Medical History Past Medical History: GERD/Reflux Additional Past Medical History / Comment(s): ETOH abuse with withdrawals (tremors/abdominal pain), past elevated LFTs, History of Any Multi-Drug Resistant Organisms: None Reported Past Surgical History: Hernia Repair, Orthopedic Surgery Additional Past Surgical History / Comment(s): right arm surgery for severed nerve, hernia repair as a child, undescended testicle as a child, Past Anesthesia/Blood Transfusion Reactions: No Reported Reaction Past Psychological History: Depression Smoking Status: Never smoker Past Alcohol Use History: Abuse, Daily, Heavy Past Drug Use History: Marijuana - Past Family History Mother Family Medical History: Diabetes Mellitus Additional Family Medical History / Comment(s): family history on maternal side of diabetes Father Additional Family Medical History / Comment(s): Pt has never met his father but knows that he is an alcoholic and agoraphobic. General Exam Limitations: no limitations General appearance: alert, in no apparent distress Head exam: Present: atraumatic, normocephalic, normal inspection Eye exam: Present: normal appearance, PERRL, EOMI. Absent: scleral icterus, conjunctival injection, periorbital swelling ENT exam: Present: normal exam, mucous membranes moist Neck exam: Present: normal inspection Respiratory exam: Present: normal lung sounds bilaterally. Absent: respiratory distress, wheezes, rales, rhonchi, stridor Cardiovascular Exam: Present: regular rate, normal rhythm, normal heart sounds. Absent: systolic murmur, diastolic murmur, rubs, gallop, clicks GI/Abdominal exam: Present: soft, normal bowel sounds. Absent: distended, tenderness, guarding, rebound, rigid Extremities exam: Present: normal inspection, full ROM, normal capillary refill. Absent: tenderness, pedal edema, joint swelling, calf tenderness Neurological exam: Present: alert, oriented X3 Psychiatric exam: Present: normal affect, normal mood Skin exam: Present: warm, dry, intact, normal color. Absent: rash Course Vital Signs 03/24/21 03/24/21 06:34 08:14 Temperature 97.9 F Pulse Rate 99 88 Respiratory 22 18 Rate Blood Pressure 154/90 145/96 O2 Sat by Pulse 97 96 Oximetry Medical Decision Making - Medical Decision Making 26-year-old male with nausea vomiting complaining of alcohol withdrawal. Labs, 1 L normal saline, 4 g of Zofran, 1 mg Ativan ordered. Labs unremarkable. Patient was cleared for EPS evaluation. EPS wants to admit patient for depression and suicidal ideations. Case discussed with Dr. Metcalf, patient will be admitted. - Lab Data Result diagrams: 03/24/21 07:11 03/24/21 07:11 Lab Results 03/24/21 03/24/21 03/24/21 Range/Units 07:11 07:11 07:11 WBC 7.5 (3.8-10.6) k/uL RBC 4.95 (4.30-5.90) m/uL Hgb 14.1 (13.0-17.5) gm/dL Hct 42.3 (39.0-53.0) % MCV 85.5 (80.0-100.0) fL MCH 28.5 (25.0-35.0) pg MCHC 33.3 (31.0-37.0) g/dL RDW 12.6 (11.5-15.5) % Plt Count 289 (150-450) k/uL MPV 8.7 Neutrophils % 54 % Lymphocytes % 30 % Monocytes % 9 % Eosinophils % 3 % Basophils % 1 % Neutrophils # 4.0 (1.3-7.7) k/uL Lymphocytes # 2.3 (1.0-4.8) k/uL Monocytes # 0.7 (0-1.0) k/uL Eosinophils # 0.2 (0-0.7) k/uL Basophils # 0.1 (0-0.2) k/uL Sodium 139 (137-145) mmol/L Potassium 4.1 (3.5-5.1) mmol/L Chloride 101 (98-107) mmol/L Carbon Dioxide 24 (22-30) mmol/L Anion Gap 14 mmol/L BUN 13 (9-20) mg/dL Creatinine 0.80 (0.66-1.25) mg/dL Est GFR (CKD-EPI)AfAm >90 (>60 ml/min/1.73 sqM) Est GFR (CKD-EPI)NonAf >90 (>60 ml/min/1.73 sqM) Glucose 89 (74-99) mg/dL Calcium 10.1 (8.4-10.2) mg/dL Total Bilirubin 0.8 (0.2-1.3) mg/dL AST 51 (17-59) U/L ALT 21 (4-49) U/L Alkaline Phosphatase 76 (38-126) U/L Total Protein 7.9 (6.3-8.2) g/dL Albumin 4.7 (3.5-5.0) g/dL Urine Color Yellow Urine Appearance Cloudy (Clear) Urine pH 8.0 (5.0-8.0) Ur Specific [place] 1.018 (1.001-1.035) Urine Protein Trace H (Negative) Urine Glucose (UA) Negative (Negative) Urine Ketones 1+ H (Negative) Urine Blood Negative (Negative) Urine Nitrite Negative (Negative) Urine Bilirubin Negative (Negative) Urine Urobilinogen <2.0 (<2.0) mg/dL Ur Leukocyte Esterase Negative (Negative) Urine WBC 1 (0-5) /hpf Amorphous Sediment Rare H (None) /hpf Urine Mucus Rare H (None) /hpf Urine Opiates Screen (NotDetected) Ur Oxycodone Screen (NotDetected) Urine Methadone Screen (NotDetected) Ur Propoxyphene Screen (NotDetected) Ur Barbiturates Screen (NotDetected) U Tricyclic Antidepress (NotDetected) Ur Phencyclidine Scrn (NotDetected) Ur Amphetamines Screen (NotDetected) U Methamphetamines Scrn (NotDetected) U Benzodiazepines Scrn (NotDetected) Urine Cocaine Screen (NotDetected) U Marijuana (THC) Screen (NotDetected) 03/24/21 Range/Units 07:11 WBC (3.8-10.6) k/uL RBC (4.30-5.90) m/uL Hgb (13.0-17.5) gm/dL Hct (39.0-53.0) % MCV (80.0-100.0) fL MCH (25.0-35.0) pg MCHC (31.0-37.0) g/dL RDW (11.5-15.5) % Plt Count (150-450) k/uL MPV Neutrophils % % Lymphocytes % % Monocytes % % Eosinophils % % Basophils % % Neutrophils # (1.3-7.7) k/uL Lymphocytes # (1.0-4.8) k/uL Monocytes # (0-1.0) k/uL Eosinophils # (0-0.7) k/uL Basophils # (0-0.2) k/uL Sodium (137-145) mmol/L Potassium (3.5-5.1) mmol/L Chloride (98-107) mmol/L Carbon Dioxide (22-30) mmol/L Anion Gap mmol/L BUN (9-20) mg/dL Creatinine (0.66-1.25) mg/dL Est GFR (CKD-EPI)AfAm (>60 ml/min/1.73 sqM) Est GFR (CKD-EPI)NonAf (>60 ml/min/1.73 sqM) Glucose (74-99) mg/dL Calcium (8.4-10.2) mg/dL Total Bilirubin (0.2-1.3) mg/dL AST (17-59) U/L ALT (4-49) U/L Alkaline Phosphatase (38-126) U/L Total Protein (6.3-8.2) g/dL Albumin (3.5-5.0) g/dL Urine Color Urine Appearance (Clear) Urine pH (5.0-8.0) Ur Specific [place] (1.001-1.035) Urine Protein (Negative) Urine Glucose (UA) (Negative) Urine Ketones (Negative) Urine Blood (Negative) Urine Nitrite (Negative) Urine Bilirubin (Negative) Urine Urobilinogen (<2.0) mg/dL Ur Leukocyte Esterase (Negative) Urine WBC (0-5) /hpf Amorphous Sediment (None) /hpf Urine Mucus (None) /hpf Urine Opiates Screen Not Detected (NotDetected) Ur Oxycodone Screen Not Detected (NotDetected) Urine Methadone Screen Not Detected (NotDetected) Ur Propoxyphene Screen Not Detected (NotDetected) Ur Barbiturates Screen Not Detected (NotDetected) U Tricyclic Antidepress Not Detected (NotDetected) Ur Phencyclidine Scrn Not Detected (NotDetected) Ur Amphetamines Screen Not Detected (NotDetected) U Methamphetamines Scrn Not Detected (NotDetected) U Benzodiazepines Scrn Not Detected (NotDetected) Urine Cocaine Screen Not Detected (NotDetected) U Marijuana (THC) Screen Detected H (NotDetected) Disposition Clinical Impression: Alcohol withdrawal, Depression, Suicidal ideation Disposition: ADMITTED IP TO THIS [facility] Condition: Stable Is patient prescribed a controlled substance at d/c from ED?: No Referrals: Shay Tom MD [Primary Care Provider] - 1-2 days Time of Disposition: 11:01
[2021-03-24] MEDS ORDERED: MAG HYDROX/AL HYDROX/SIMETH 30 ML CUP PO PRN (14:21)
[2021-03-24] MEDS ORDERED: MAGNESIUM HYDROXIDE 2,400 MG/10 ML CUP PO PRN (14:21)
[2021-03-24] MEDS ORDERED: LORazepam 2 MG/ML INJ IM PRN (14:37)
[2021-03-24] MEDS: LORazepam 1 MG TAB PO PRN (16:05)
[2021-03-25 06:43] VITALS: TEMP 97.7
[2021-03-25 07:22] LABS: ALT 20 U/L (4-49); AST 46 U/L (17-59); African American GFR (CKD) >90 (>60 ml/min/1.73 sqM); Albumin 4.3 g/dL (3.5-5.0); Alkaline Phosphatase 79 U/L (38-126); Anion Gap 8 mmol/L; Basophils # (A) 0.1 k/uL (0-0.2); Basophils % (A) 1 %; Blood Urea Nitrogen 13 mg/dL (9-20); Calcium 9.8 mg/dL (8.4-10.2); Carbon Dioxide 29 mmol/L (22-30); Chloride 101 mmol/L (98-107); Eosinophils # (A) 0.4 k/uL (0-0.7); Eosinophils % (A) 8 %; Glucose 86 mg/dL (74-99); HCT 44.1 % (39.0-53.0); HGB 14.1 gm/dL (13.0-17.5); Lymphocytes # (A) 1.4 k/uL (1.0-4.8); Lymphocytes % (A) 25 %; MCH 28.7 pg (25.0-35.0); MCHC 31.9 g/dL (31.0-37.0); MCV 89.9 fL (80.0-100.0); Mean Platelet Volume 9.2; Monocytes # (A) 0.4 k/uL (0-1.0); Monocytes % (A) 7 %; Neutrophils # (A) 3.1 k/uL (1.3-7.7); Neutrophils % (A) 56 %; Non-African American GFR(CKD) >90 (>60 ml/min/1.73 sqM); Platelet Count 233 k/uL (150-450); Potassium 4.9 mmol/L (3.5-5.1); RDW 12.6 % (11.5-15.5); Sodium 138 mmol/L (137-145); Total Protein 7.5 g/dL (6.3-8.2); WBC 5.5 k/uL (3.8-10.6)
[2021-03-25] MEDS ORDERED: TOPIRAMATE 25 MG TAB PO STA (10:20)
--- NOTE | 2021-03-25 11:04 | P.HP ---
Psychiatric H&P - . H&P Date: 03/25/21 History & Physical: Allergies Allergy/AdvReac Type Severity Reaction Status Date / Time cat dander Allergy Rash/Hives Verified 03/24/21 07:55 Vital Signs Temp 97.7 F 03/25/21 06:43 Pulse 75 03/25/21 06:43 Resp 18 03/25/21 06:43 BP 136/89 03/25/21 06:43 Pulse Ox 99 03/24/21 15:15 Intake & Output 03/24/21 03/25/21 03/25/21 18:59 06:59 18:59 Weight 75.041 kg Laboratory Last Values WBC 5.5 k/uL (3.8-10.6) 03/25/21 06:32 RBC 4.90 m/uL (4.30-5.90) 03/25/21 06:32 Hgb 14.1 gm/dL (13.0-17.5) 03/25/21 06:32 Hct 44.1 % (39.0-53.0) 03/25/21 06:32 MCV 89.9 fL (80.0-100.0) 03/25/21 06:32 MCH 28.7 pg (25.0-35.0) 03/25/21 06:32 MCHC 31.9 g/dL (31.0-37.0) 03/25/21 06:32 RDW 12.6 % (11.5-15.5) 03/25/21 06:32 Plt Count 233 k/uL (150-450) 03/25/21 06:32 MPV 9.2 03/25/21 06:32 Neutrophils % 56 % 03/25/21 06:32 Lymphocytes % 25 % 03/25/21 06:32 Monocytes % 7 % 03/25/21 06:32 Eosinophils % 8 % 03/25/21 06:32 Basophils % 1 % 03/25/21 06:32 Neutrophils # 3.1 k/uL (1.3-7.7) 03/25/21 06:32 Lymphocytes # 1.4 k/uL (1.0-4.8) 03/25/21 06:32 Monocytes # 0.4 k/uL (0-1.0) 03/25/21 06:32 Eosinophils # 0.4 k/uL (0-0.7) 03/25/21 06:32 Basophils # 0.1 k/uL (0-0.2) 03/25/21 06:32 Sodium 138 mmol/L (137-145) 03/25/21 06:32 Potassium 4.9 mmol/L (3.5-5.1) 03/25/21 06:32 Chloride 101 mmol/L (98-107) 03/25/21 06:32 Carbon Dioxide 29 mmol/L (22-30) 03/25/21 06:32 Anion Gap 8 mmol/L 03/25/21 06:32 BUN 13 mg/dL (9-20) 03/25/21 06:32 Creatinine 0.84 mg/dL (0.66-1.25) 03/25/21 06:32 Est GFR (CKD-EPI)AfAm >90 (>60 ml/min/1.73 sqM) 03/25/21 06:32 Est GFR (CKD-EPI)NonAf >90 (>60 ml/min/1.73 sqM) 03/25/21 06:32 Glucose 86 mg/dL (74-99) 03/25/21 06:32 Calcium 9.8 mg/dL (8.4-10.2) 03/25/21 06:32 Total Bilirubin 2.0 mg/dL (0.2-1.3) H 03/25/21 06:32 AST 46 U/L (17-59) 03/25/21 06:32 ALT 20 U/L (4-49) 03/25/21 06:32 Alkaline Phosphatase 79 U/L (38-126) 03/25/21 06:32 Total Protein 7.5 g/dL (6.3-8.2) 03/25/21 06:32 Albumin 4.3 g/dL (3.5-5.0) 03/25/21 06:32 TSH 0.809 mIU/L (0.465-4.680) 03/25/21 06:32 Urine Color Yellow 03/24/21 07:11 Urine Appearance Cloudy (Clear) 03/24/21 07:11 Urine pH 8.0 (5.0-8.0) 03/24/21 07:11 Ur Specific [place] 1.018 (1.001-1.035) 03/24/21 07:11 Urine Protein Trace (Negative) H 03/24/21 07:11 Urine Glucose (UA) Negative (Negative) 03/24/21 07:11 Urine Ketones 1+ (Negative) H 03/24/21 07:11 Urine Blood Negative (Negative) 03/24/21 07:11 Urine Nitrite Negative (Negative) 03/24/21 07:11 Urine Bilirubin Negative (Negative) 03/24/21 07:11 Urine Urobilinogen <2.0 mg/dL (<2.0) 03/24/21 07:11 Ur Leukocyte Esterase Negative (Negative) 03/24/21 07:11 Urine WBC 1 /hpf (0-5) 03/24/21 07:11 Amorphous Sediment Rare /hpf (None) H 03/24/21 07:11 Urine Mucus Rare /hpf (None) H 03/24/21 07:11 Urine Opiates Screen Not Detected (NotDetected) 03/24/21 07:11 Ur Oxycodone Screen Not Detected (NotDetected) 03/24/21 07:11 Urine Methadone Screen Not Detected (NotDetected) 03/24/21 07:11 Ur Propoxyphene Screen Not Detected (NotDetected) 03/24/21 07:11 Ur Barbiturates Screen Not Detected (NotDetected) 03/24/21 07:11 U Tricyclic Antidepress Not Detected (NotDetected) 03/24/21 07:11 Ur Phencyclidine Scrn Not Detected (NotDetected) 03/24/21 07:11 Ur Amphetamines Screen Not Detected (NotDetected) 03/24/21 07:11 U Methamphetamines Scrn Not Detected (NotDetected) 03/24/21 07:11 U Benzodiazepines Scrn Not Detected (NotDetected) 03/24/21 07:11 Urine Cocaine Screen Not Detected (NotDetected) 03/24/21 07:11 U Marijuana (THC) Screen Detected (NotDetected) H 03/24/21 07:11 Coronavirus (PCR) Not Detected (Not Detectd) 03/24/21 11:55 03/25/21 11:04 IDENTIFYING DATA: Patient is a single, unemployed, 26-year-old male with significant history of alcohol use disorder who presented to the emergency department for alcohol withdrawal and abdominal pain. HPI: Patient presented to the hospital on 03/24/21 with a chief complaint of abdominal pain and alcohol withdrawal. The patient was reportedly sober for 6 months and recently relapsed into drinking a fifth a day of liquor for the past week. The patient also mentioned suicidal thoughts in the emergency department and mobile crisis team evaluated the patient. The patient endorses significant symptoms of depression and reports to the mobile crisis team that "I feel like a loser, I am 26, with my mom, can't keep a job longer than one day, never had sex with a girl." He reported suicidal thoughts every day to the delinquency prevention social worker and cut himself superficially the other day on the back of his hand. The patient tried cutting himself on Wednesday night I was threatening to cut off his hand to his mother and she picked up more alcohol. He was subsequently transferred to the psychiatric unit. Upon evaluation on the unit, the patient reports that he has been drinking heavily since relapsing after being sober for 6 months. On top of his alcohol use, the patient does report significant symptoms of depression and anxiety including symptoms of anhedonia, isolation, poor sleep, low energy, and increased anxiety. The patient reports that he only expresses suicidal thoughts when he is drinking heavily. The patient denies any prior attempts at suicide. He does admit to superficial cutting on his left hand but states that he did so when he was in alcohol withdrawal. The patient was started on Topamax, amitriptyline, and Celexa by his primary care physician was nonadherent with these medications. The patient states that he has been drinking alcohol since he was in his late teens. He reports that he began drinking alcohol socially but then began experiencing significant headaches. He describes his headaches as tension in the front of his head as well as throbbing pain in the back of his head. He reports that drinking alcohol use only way this would be alleviated. Furthermore, the patient reports some numbness or on feeling in his nostril stating that he is unable to feel the air entry his nose. He reports that this has been going on ever since he used K2 illicitly. In regards to other mood symptoms, the patient does not endorse any significance history of jared or hypomania. He reports no auditory or visual hallucinations. He states that the only time his expressed hallucinations is when he was under the substance of drugs or alcohol. PAST PSYCHIATRIC HISTORY: Patient states that he has been diagnosed with alcohol use disorder and depression. The patient recalls being prescribed Topamax, amitriptyline, and Celexa but was nonadherent with the medication and only tried the medication for one week. Patient denies any previous psychiatric hospitalizations. Patient denies any psychiatric outpatient follow-up. Patient denies any history of suicide attempts in the past. PMH: Past Medical History: GERD/Reflux Additional Past Medical History / Comment(s): ETOH abuse with withdrawals (tremors/abdominal pain), past elevated LFTs, History of Any Multi-Drug Resistant Organisms: None Reported Past Surgical History: Hernia Repair, Orthopedic Surgery Additional Past Surgical History / Comment(s): right arm surgery for severed nerve, hernia repair as a child, undescended testicle as a child, Past Anesthesia/Blood Transfusion Reactions: No Reported Reaction Past Psychological History: Depression Smoking Status: Never smoker Past Alcohol Use History: Abuse, Daily, Heavy Past Drug Use History: Marijuana ALLERGIES: Cat dander CHEMICAL DEPENDENCY HISTORY: The patient reports that he has been drinking up to a fifth of liquor per day. He reports that this has been going on for the past week. He was previously sober for 6 months prior to relapsing. The patient reports a history of heavy alcohol use, drinking a fifth a day for many years. Furthermore, the patient has experimented with spice, K2, acid and other illicit drugs. The patient reports that he is not using any other drugs at this time except for marijuana which she uses heavily and daily. FAMILY PSYCHIATRIC/SUBSTANCE USE HISTORY: The patient reports that his father has been diagnosed with anxiety and alcohol use disorder. SOCIAL HISTORY: Patient was born and raised in [facility]. The patient is single, never , and has no children. He has attended some college. He is currently unemployed. He lives with his mother and 30-year-old brother. He denies any current legal issues. Reports no cheondoism affiliation. MENTAL STATUS EXAM: General Appearance: Patient appears to be stated age is alert, directable, and attempts to cooperate. Patient appears to have fair hygiene and grooming. Behavior: Patient is seated without any agitated behavior. Psychomotor activity appears normal. Eye contact is appropriate. Speech: Patient's speech is fluent and nonpressured. Mood/Affect: Patient reports their mood is depressed and anxious, affect is congruent and constricted. Suicidality/Homicidality: Patient denies having any homicidal ideation intent or plan. Denies any suicidal ideations intent or plan Perceptions: Patient denies any visual hallucinations and denies any auditory hallucinations Though content/process: There is no evidence of any delusional thought content and thought process is linear and goal-directed. Memory and concentration: AOX3, grossly intact for the purposes of this session. Can spell "WORLD" backwards Judgment and insight: poor STRENGTHS/WEAKNESSES: Strengths that the patient appears to have a supportive family. Weakness is that the patient engages in heavy substance abuse and is nonadherent with prescribed treatment regimens. INTELLECT: average IMPRESSIONS: Major depressive disorder, recurrent, severe Anxiety disorder, unspecified Alcohol use disorder Cannabis use disorder Migraine headaches PLAN: -Patient is admitted under voluntary status to MHU for stabilization of psychiatric symptoms and safety. Patient signed adult voluntary form and medication consent and is placed in patient's chart. -Medications : Will start patient on Topamax 25 mg by mouth twice a day for migraine/off label use for mood stabilization Amitriptyline 25 mg at bedtime for depression/anxiety/migraine headaches -Ativan and Haldol PRN for agitation/aggression -CIWA protocol with Ativan PRN for ETOH withdrawal -Patient was counselled on substance abuse and desired to cut back on use -Patient was informed of the risks, benefits and side effects of the medication and patient verbally consented to taking the medications. Patient signed med consent form and was placed in chart. -Internal Medicine consult to perform medical evaluation and physical. -SW on board for discharge planning. Encourage patient to participate in groups to work on coping skills. 03/25/21 11:04
[2021-03-25] MEDS: LORazepam 1 MG TAB PO PRN ×2 (11:34→19:57)
[2021-03-25 12:00] LABS: Chol/HDL Ratio 2.48 Ratio; LDL Cholesterol,Calculated 70.7 mg/dL (0.0-131.0)
[2021-03-25] MEDS: TOPIRAMATE 25 MG TAB PO SCH (19:57)
[2021-03-25] MEDS ORDERED: AMITRIPTYLINE HCL 25 MG TAB PO SCH (21:00)
[2021-03-26 07:11] VITALS: RESP 16
[2021-03-26] MEDS: LORazepam 1 MG TAB PO PRN (07:59)
[2021-03-26] MEDS: ACETAMINOPHEN TAB 325 MG TAB PO PRN ×2 (07:59→13:49)
[2021-03-26] MEDS: TOPIRAMATE 25 MG TAB PO SCH ×2 (07:59→20:04)
--- NOTE | 2021-03-26 08:44 | P.CONS ---
History of Present Illness - Reason for Consult Consult date: 03/25/21 medical eval - Chief Complaint suicidal - History of Present Illness Jose Francisco Ballard is a 26 yo M with PMH of alcoholism, daily MJ use, migraine headaches, major depression who presented to the ED intoxicated and expressing suicidal ideation. Pt has struggled with alcohol abuse for years, had recently been sober for 6 months and over the past week again began drinking about a fifth a day. He complains of general dissatisfaction with the direction of his life and feels he has been a failure, he notes feelings of being better off not around and feeling more depressed. He complains of chronic daily headaches that improve with alcohol. He has brought these concerns up as an outpatient in the past and was prescribed lexapro and elavil, he states he stoppped taking these medications after a few days. On presentation vitals stable, labs unremarkable with exception of positive THC. Review of Systems All systems: negative Constitutional: Denies chills, Denies fever Eyes: denies blurred vision, denies pain Ears, nose, mouth and throat: Denies headache, Denies sore throat Cardiovascular: Denies chest pain, Denies shortness of breath Respiratory: Denies cough Gastrointestinal: Denies abdominal pain, Denies diarrhea, Denies nausea, Denies vomiting Musculoskeletal: Denies myalgias Integumentary: Denies pruritus, Denies rash Neurological: Reports headaches, Denies numbness, Denies weakness Psychiatric: Reports anxiety, Reports depression, Reports suicidal ideation Endocrine: Denies fatigue, Denies weight change Past Medical History Past Medical History: GERD/Reflux Additional Past Medical History / Comment(s): ETOH abuse with withdrawals (tremors/abdominal pain), past elevated LFTs, History of Any Multi-Drug Resistant Organisms: None Reported Past Surgical History: Hernia Repair, Orthopedic Surgery Additional Past Surgical History / Comment(s): right arm surgery for severed nerve, hernia repair as a child, undescended testicle as a child Past Anesthesia/Blood Transfusion Reactions: No Reported Reaction Past Psychological History: Depression Additional Psychological History / Comment(s): Pt resides with his mother. He is independent. Pt has gone into rehab several times and was to go to rehab 02/15/20 but staff concerned about tremors. Pt has depression and has had suicidal thoughts/ideations in the past but states none in past couple weeks. Smoking Status: Never smoker Past Alcohol Use History: Abuse, Daily, Heavy Additional Past Alcohol Use History / Comment(s): Pt states he drinks 1/5 liqour a day and last drank 03/23/2021 Past Drug Use History: Marijuana Additional Drug Use History / Comment(s): Occasional marijuana use. Years ago smoked spice and tried acid twice. - Past Family History Mother Family Medical History: Diabetes Mellitus Additional Family Medical History / Comment(s): family history on maternal side of diabetes Father Additional Family Medical History / Comment(s): Pt has never met his father but knows that he is an alcoholic and agoraphobic. Medications and Allergies Home Medications Medication Instructions Recorded Confirmed Type Amitriptyline HCl [Elavil] 10 mg PO HS 03/24/21 03/24/21 History Allergies Allergy/AdvReac Type Severity Reaction Status Date / Time cat dander Allergy Rash/Hives Verified 03/24/21 07:55 Physical Exam Vitals: Vital Signs Temp Pulse Resp BP 03/26/21 07:10 97.7 F 62 16 141/81 03/25/21 17:25 101 H 18 137/90 General: well developed, well nourished, NAD HEENT: normocephalic, atraumatic, mucus membranes moist Neck: supple, no thyromegaly, no JVD CV: RRR, no murmur Lungs: normal effort, clear throughout Abd: soft, nontender, non distended Neuro: alert and oriented x3, no focal deficit. No tremor Skin: warm and dry. No diaphoresis Results CBC & Chem 7: 03/25/21 06:32 03/25/21 06:32 Labs: Abnormal Lab Results - Last 24 Hours (Table) 03/25/21 Range/Units 06:32 HDL Cholesterol 66.90 H (40.00-60.00) mg/dL Assessment and Plan Plan: 1. Severe recurrent major depression. Suicidal ideation. Management per psychiatry 2. Migraine headaches. Recommend he resume topamax and elavil 3. Alcohol abuse disorder. No evidence of active withdrawal. [facility] protocol o rdered by psych, score 3 4. Marijuana abuse
--- NOTE | 2021-03-26 11:19 | P.PN ---
Progress Note - Text Progress Note Date: 03/26/21 Interval History: Patient was seen resting in bed and was agreeable to speak with caption writer in his office. Currently, the patient is not reporting any suicidal or homicidal ideation, intention, and/or plan. He is not reporting auditory or visual hallucinations. Is denying any paranoia or delusions. He reports that he is continuing to experience some headaches and rates his pain 3 out of 10 in intensity. He states that he took Topamax, Ativan, and ibuprofen this morning a nd is now complaining of dizziness. He was informed that it is likely due to the Ativan. The patient denies any issues regarding his sleep or his appetite. He is been adherent with his medications and is not endorsing any significant side effects at this time. Mental Status Exam: General Appearance: Patient appears to be stated age is alert, directable, and cooperative. Behavior: Patient is calmly seated without any agitated behavior. Speech: Patient's speech is fluent and nonpressured. Mood/Affect: Mood is improving mildly, affect is congruent and constricted. Suicidality/Homicidality: Patient denies having any suicidal or homicidal ideation intent or plan. Perceptions: Patient denies any visual hallucinations and denies any auditory hallucinations Though content/process: There is no evidence of any delusional thought content and thought process is linear and goal-directed. Memory and concentration: AOX3, grossly intact for the purposes of this session Judgment and insight: Improving mildly Vital Signs Temp 97.7 F 03/26/21 07:10 Pulse 62 03/26/21 07:10 Resp 16 03/26/21 07:10 BP 141/81 03/26/21 07:10 Pulse Ox 99 03/24/21 15:15 Assessment Major depressive disorder, recurrent, severe Anxiety disorder, unspecified Alcohol use disorder Cannabis use disorder Migraine headaches Plan: -Patient continues to meet criteria for inpatient psychiatric admission for symptom stabilization and safety. Patient has signed adult voluntary form and medication consent and was placed in patient's chart. -Medications: Continue Topamax 25 mg twice a day for migraine/off label use for mood stabilization Increase amitriptyline to 50 mg at bedtime for depression/ -When necessary Vistaril and Haldol for agitation/aggression. -NRT - nicotine patch -SW on board for discharge planning. Encouraged the patient to participate in milieu.
[2021-03-26] MEDS: hydrOXYzine pamoate 25 MG CAP PO PRN ×2 (13:48→21:20)
[2021-03-26] MEDS ORDERED: AMITRIPTYLINE HCL 25 MG TAB PO SCH (21:00)
[2021-03-27 06:22] VITALS: BP 127/75; PULSE 73
[2021-03-27] MEDS: TOPIRAMATE 25 MG TAB PO SCH (08:06)
[2021-03-27] MEDS: hydrOXYzine pamoate 25 MG CAP PO PRN (08:06)
--- NOTE | 2021-03-27 10:24 | P.DS ---
Providers Date of admission: 03/24/21 14:00 Expected date of discharge: 03/27/21 Attending physician: Neil Bailey MD Consults: 03/24/21 14:35 Consult Physician Routine Consulting Provider: Shay Tom Consult Reason/Comments: H&P and medical Do you want consulting provider notified?: Yes Primary care physician: Shay Tom MD - Discharge Diagnosis(es) (1) Major depressive disorder Current Visit: Yes Status: Acute Priority: High (2) Anxiety disorder Current Visit: Yes Status: Acute Priority: High (3) Alcohol use disorder Current Visit: Yes Status: Chronic Priority: Medium (4) Cannabis use disorder, moderate, dependence Current Visit: Yes Status: Chronic Priority: Medium (5) Migraine Current Visit: Yes Status: Chronic Priority: Medium Hospital Course: Admission HPI: Patient is a single, unemployed, 26-year-old male with significant his tory of alcohol use disorder who presented to the emergency department for alcohol withdrawal and abdominal pain. Patient presented to the hospital on 03/24/21 with a chief complaint of abdominal pain and alcohol withdrawal. The patient was reportedly sober for 6 months and recently relapsed into drinking a fifth a day of liquor for the past week. The patient also mentioned suicidal thoughts in the emergency department and mobile crisis team evaluated the patient. The patient endorses significant symptoms of depression and reports to the mobile crisis team that "I feel like a loser, I am 26, with my mom, can't keep a job longer than one day, never had sex with a girl." He reported suicidal thoughts every day to the print finishing worker and cut himself superficially the other day on the back of his hand. The patient tried cutting himself on Wednesday night I was threatening to cut off his hand to his mother and she picked up more alcohol. He was subsequently transferred to the psychiatric unit. Upon evaluation on the unit, the patient reports that he has been drinking heavily since relapsing after being sober for 6 months. On top of his alcohol use, the patient does report significant symptoms of depression and anxiety including symptoms of anhedonia, isolation, poor sleep, low energy, and increased anxiety. The patient reports that he only expresses suicidal thoughts when he is drinking heavily. The patient denies any prior attempts at suicide. He does admit to superficial cutting on his left hand but states that he did so when he was in alcohol withdrawal. The patient was started on Topamax, amitriptyline, and Celexa by his primary care physician was nonadherent with these medications. The patient states that he has been drinking alcohol since he was in his late teens. He reports that he began drinking alcohol socially but then began experiencing significant headaches. He describes his headaches as tension in the front of his head as well as throbbing pain in the back of his head. He reports that drinking alcohol use only way this would be alleviated. Furthermore, the patient reports some numbness or on feeling in his nostril stating that he is unable to feel the air entry his nose. He reports that this has been going on ever since he used K2 illicitly. In regards to other mood symptoms, the patient does not endorse any significance history of jared or hypomania. He reports no auditory or visual hallucinations. He states that the only time his expressed hallucinations is when he was under the substance of drugs or alcohol. Patient states that he has been diagnosed with alcohol use disorder and depression. The patient recalls being prescribed Topamax, amitriptyline, and Celexa but was nonadherent with the medication and only tried the medication for one week. Patient denies any previous psychiatric hospitalizations. Patient denies any psychiatric outpatient follow-up. Patient denies any history of suicide attempts in the past. Hospital course: Upon admission to the unit patient was initially endorsing depression. He did endorse suicidal ideation in the emergency department and was subsequently transferred to the psychiatric unit. Upon presentation on the psychiatric unit, the patient expressed that much of his depression is attributed to his medical conditions as well as his heavy alcohol use. He reports that he has been drinking heavily in order to deal with migraine headaches and bizarre feeling in his nose which is secondary to illicit substance use. The patient was however agreeable to starting medications to address both depression as well as his migraines. The patient was started on a regimen of Elavil and Topamax. The patient got along well with other patients on the unit and followed unit protocol. He did remain primarily acid of 2 himself in his room. He was compliant with his medications and denied any side effects throughout the hospital course. This patient spoke of his stressors and engaged in therapy both group and individual. He was also examined by the medical team for history and physical examination. The patient displayed gradual improvement over the course of the hospitalization in regards to started symptoms of depression, anxiety, and headaches. Patient became more future oriented and developed better insight and judgment are understood that alcohol was detrimental to his health. Blood day of discharge, patient is not reporting any suicidal or homicidal ideation, intention, and/or plan. He is not reporting any access to firearms or other weapons. He is denying any auditory or visual hallucinations. He denies any paranoia or other delusions. The patient does have a significant history of heavy substance abuse and polysubstance abuse however was counseled on abstaining from all substances including alcohol, marijuana, K2, spice, and other psychoactive substances. The patient was offered however declined inpatient substance-abuse rehabilitation. The patient was counseled on his medications and the importance for regular compliance and was encouraged to follow-up with his outpatient appointment for mental health and for primary care. Prior to discharge, family meeting will be arranged by health care social worker to answer questions and ensure safety. The patient does fast for a week at a time and has not engaged in any eating on this unit. He reports that he plans to break fast when he returns home. The patient was counseled on engaging in this eating behavior under the supervision of a jetting machine operator. Mental status exam: General Appearance: Patient appears to be stated age is alert, pleasant, and cooperative. Patient is in no acute distress and has fair hygiene and grooming Behavior: Patient is calmly seated without any agitated behavior. Speech: Patient's speech is fluent and nonpressured. Mood/Affect: Patient reports their mood is "feeling pretty good", affect is congruent and euthymic. Suicidality/Homicidality: Patient denies having any suicidal or homicidal ideation intent or plan. Perceptions: Patient denies any auditory or visual hallucinations. Though content/process: There is no evidence of any delusional thought content and thought process is linear and goal-directed. Memory and concentration: AOX3, grossly intact for the purposes of this session. Can spell "WORLD" backwards correctly. Judgment and insight: Improved with guarded prognosis Vital Signs Temp 97.7 F 03/27/21 06:21 Pulse 73 03/27/21 06:21 Resp 16 03/27/21 06:21 BP 127/75 03/27/21 06:21 Pulse Ox 99 03/24/21 15:15 Impression: Major depressive disorder, recurrent, severe Anxiety disorder, unspecified Alcohol use disorder Cannabis use disorder Migraine headaches Plan: -Continue with discharge today as patient has improved and stabilized psychiatrically and is not currently an imminent threat to himself and/or others. Patient will remain at chronically elevated risk for harm to self and/or others due to his impulsivity and polysubstance abuse. -Continue medications: Topamax 25 mg by mouth twice a day for migraines/off label use for mood stabilization Amitriptyline 50 mg by mouth at bedtime for depression/anxiety/migraine headaches -Patient was counseled on the need for medication compliance and appropriate follow-up at mental health and also primary care for medical issues. Patient verbalized understanding and agreed. -Social work to arrange for and conduct family meeting to ensure safety upon discharge and answer any questions/concerns. Social work also to arrange for patients follow up appointments for psychiatric care along with follow up with primary care provider. -Patient counseled on abstaining from recreational drugs and marijuana and alcohol. Was informed/educated on the adverse effects on their physical and mental health. Patient verbally agreed and understood. Patient was offered substance abuse treatment however declined at this time. -Patient was instructed to return to the hospital or seek immediate medical care if their psychiatric or medical symptoms do worsen or reoccur. -Psychoeducation and supportive therapy provided to patient. Risks and benefits of pharmacological treatment versus the risks and benefits of nontreatment weight and discussed. Informed consent discussion held. Common side effects of psychotropics discussed such as, but not limited to headache, GI disturbance, sexual dysfunction, movement disorders, sedation, and orthostatic hypotension. Life threatening and blackbox warnings of prescribed medications also discussed. Potential risks of operating a vehicle or heavy machinery discussed with patient at length. Advised on importance of compliance and a reliable and responsible manner. Patient advised to review FDA consumer labeling of all medications prior to taking. Patient verbalized understanding of potential risks, and agrees with current treatment plan. Patient advised to medically contact physician/emergency personnel if any acute changes in condition occur. Laboratory Results WBC 5.5 k/uL (3.8-10.6) 03/25/21 06:32 RBC 4.90 m/uL (4.30-5.90) 03/25/21 06:32 Hgb 14.1 gm/dL (13.0-17.5) 03/25/21 06:32 Hct 44.1 % (39.0-53.0) 03/25/21 06:32 MCV 89.9 fL (80.0-100.0) 03/25/21 06:32 MCH 28.7 pg (25.0-35.0) 03/25/21 06:32 MCHC 31.9 g/dL (31.0-37.0) 03/25/21 06:32 RDW 12.6 % (11.5-15.5) 03/25/21 06:32 Plt Count 233 k/uL (150-450) 03/25/21 06:32 MPV 9.2 03/25/21 06:32 Neutrophils % 56 % 03/25/21 06:32 Lymphocytes % 25 % 03/25/21 06:32 Monocytes % 7 % 03/25/21 06:32 Eosinophils % 8 % 03/25/21 06:32 Basophils % 1 % 03/25/21 06:32 Neutrophils # 3.1 k/uL (1.3-7.7) 03/25/21 06:32 Lymphocytes # 1.4 k/uL (1.0-4.8) 03/25/21 06:32 Monocytes # 0.4 k/uL (0-1.0) 03/25/21 06:32 Eosinophils # 0.4 k/uL (0-0.7) 03/25/21 06:32 Basophils # 0.1 k/uL (0-0.2) 03/25/21 06:32 Sodium 138 mmol/L (137-145) 03/25/21 06:32 Potassium 4.9 mmol/L (3.5-5.1) 03/25/21 06:32 Chloride 101 mmol/L (98-107) 03/25/21 06:32 Carbon Dioxide 29 mmol/L (22-30) 03/25/21 06:32 Anion Gap 8 mmol/L 03/25/21 06:32 BUN 13 mg/dL (9-20) 03/25/21 06:32 Creatinine 0.84 mg/dL (0.66-1.25) 03/25/21 06:32 Est GFR (CKD-EPI)AfAm >90 (>60 ml/min/1.73 sqM) 03/25/21 06:32 Est GFR (CKD-EPI)NonAf >90 (>60 ml/min/1.73 sqM) 03/25/21 06:32 Glucose 86 mg/dL (74-99) 03/25/21 06:[address] Glu mg/dL 91 03/25/21 06:32 Hemoglobin A1c 4.8 % (4.0-6.0) 03/25/21 06:32 Calcium 9.8 mg/dL (8.4-10.2) 03/25/21 06:32 Total Bilirubin 2.0 mg/dL (0.2-1.3) H 03/25/21 06:32 AST 46 U/L (17-59) 03/25/21 06:32 ALT 20 U/L (4-49) 03/25/21 06:32 Alkaline Phosphatase 79 U/L (38-126) 03/25/21 06:32 Total Protein 7.5 g/dL (6.3-8.2) 03/25/21 06:32 Albumin 4.3 g/dL (3.5-5.0) 03/25/21 06:32 Triglycerides 142.00 mg/dL (0.00-149.00) 03/25/21 06:32 Cholesterol 166.00 mg/dL (0.00-200.00) 03/25/21 06:32 LDL Cholesterol, Calc 70.7 mg/dL (0.0-131.0) 03/25/21 06:32 VLDL Cholesterol, Calc 28.40 mg/dL (5.00-40.00) 03/25/21 06:32 HDL Cholesterol 66.90 mg/dL (40.00-60.00) H 03/25/21 06:32 Cholesterol/HDL Ratio 2.48 Ratio 03/25/21 06:32 TSH 0.809 mIU/L (0.465-4.680) 03/25/21 06:32 Urine Color Yellow 03/24/21 07:11 Urine Appearance Cloudy (Clear) 03/24/21 07:11 Urine pH 8.0 (5.0-8.0) 03/24/21 07:11 Ur Specific [place] 1.018 (1.001-1.035) 03/24/21 07:11 Urine Protein Trace (Negative) H 03/24/21 07:11 Urine Glucose (UA) Negative (Negative) 03/24/21 07:11 Urine Ketones 1+ (Negative) H 03/24/21 07:11 Urine Blood Negative (Negative) 03/24/21 07:11 Urine Nitrite Negative (Negative) 03/24/21 07:11 Urine Bilirubin Negative (Negative) 03/24/21 07:11 Urine Urobilinogen <2.0 mg/dL (<2.0) 03/24/21 07:11 Ur Leukocyte Esterase Negative (Negative) 03/24/21 07:11 Urine WBC 1 /hpf (0-5) 03/24/21 07:11 Amorphous Sediment Rare /hpf (None) H 03/24/21 07:11 Urine Mucus Rare /hpf (None) H 03/24/21 07:11 Urine Opiates Screen Not Detected (NotDetected) 03/24/21 07:11 Ur Oxycodone Screen Not Detected (NotDetected) 03/24/21 07:11 Urine Methadone Screen Not Detected (NotDetected) 03/24/21 07:11 Ur Propoxyphene Screen Not Detected (NotDetected) 03/24/21 07:11 Ur Barbiturates Screen Not Detected (NotDetected) 03/24/21 07:11 U Tricyclic Antidepress Not Detected (NotDetected) 03/24/21 07:11 Ur Phencyclidine Scrn Not Detected (NotDetected) 03/24/21 07:11 Ur Amphetamines Screen Not Detected (NotDetected) 03/24/21 07:11 U Methamphetamines Scrn Not Detected (NotDetected) 03/24/21 07:11 U Benzodiazepines Scrn Not Detected (NotDetected) 03/24/21 07:11 Urine Cocaine Screen Not Detected (NotDetected) 03/24/21 07:11 U Marijuana (THC) Screen Detected (NotDetected) H 03/24/21 07:11 Coronavirus (PCR) Not Detected (Not Detectd) 03/24/21 11:55 Allergies Allergy/AdvReac Type Severity Reaction Status Date / Time cat dander Allergy Rash/Hives Verified 03/24/21 07:55 Patient Condition at Discharge: Stable Plan - Discharge Summary Discharge Rx Participant: No New Discharge Prescriptions: New Amitriptyline HCl [Elavil] 50 mg PO HS 30 Days tab Topiramate [Topamax] 25 mg PO BID 30 Days tab Discontinued Amitriptyline HCl [Elavil] 10 mg PO HS Discharge Medication List Amitriptyline HCl [Elavil] 50 mg PO HS 30 Days tab 03/27/21 [Rx] Topiramate [Topamax] 25 mg PO BID 30 Days tab 03/27/21 [Rx] Follow up Appointment(s)/Referral(s): Shay Tom MD [Primary Care Provider] - 1-2 days Activity/Diet/Wound Care/Special Instructions: Activity and diet as tolerated. Avoid the use of street drugs and alcohol. Take all medications as prescribed. When you are in need of refills on your medications please contact your medical provider and/or outpatient psychiatrist to have this done. Please go to scheduled outpatient appointment for aftercare treatment. If symptoms return or become worse, call the crisis line at and/or go to the nearest emergency room for evaluation. Discharge Disposition: HOME SELF-CARE
== END 2021-03-27 13:07 | disposition home or self-care (01) | DRG 885 ==
LOC: EC 06:34 → 3MHU 14:00
PROVIDERS: ADMIT Psychiatry & Neurology Psychiatry; ATTEND Psychiatry & Neurology Psychiatry
DX: F33.2 Major depressive disorder, recurrent severe without psychotic features (principal); R45.851 Suicidal ideations; F10.239 Alcohol dependence with withdrawal, unspecified; F41.9 Anxiety disorder, unspecified; G43.909 Migraine, unspecified, not intractable, without status migrainosus; F16.90 Hallucinogen use, unspecified, uncomplicated; K21.9 Gastro-esophageal reflux disease without esophagitis; F12.20 Cannabis dependence, uncomplicated; S60.819A Abrasion of unspecified wrist, initial encounter; Z91.14 Patient's other noncompliance with medication regimen; Z56.0 Unemployment, unspecified; Z79.899 Other long term (current) drug therapy; Z83.3 Family history of diabetes mellitus; Z20.822 Contact with and (suspected) exposure to COVID-19; Z81.8 Family history of other mental and behavioral disorders; Z81.1 Family history of alcohol abuse and dependence; Z71.51 Drug abuse counseling and surveillance of drug abuser; Z91.5 Personal history of self-harm
CPT/HCPCS: 36415; 80053; 80061; 80306; 81001; 82075; 83036; 84443; 85025; 87635; 96374; 96375; 99285

== ENCOUNTER 2021-11-13 08:57 | Inpatient (IN) | payer OTHER ==
[2021-11-13 09:05] VITALS: RESP 18; TEMP 97.5
[2021-11-13] MEDS ORDERED: ONDANSETRON 4 MG/2 ML VIAL IVP STA (09:32)
[2021-11-13] MEDS ORDERED: THIAMINE 100 MG/ML 2 ML VIAL IM STA ×2 (09:35→13:25)
[2021-11-13] MEDS ORDERED: FOLIC ACID 1 MG TAB PO STA (09:35)
[2021-11-13] MEDS ORDERED: chlordiazePOXIDE 25 MG CAP PO STA (09:37)
--- NOTE | 2021-11-13 09:41 | ED ---
Alcohol HPI - General Chief Complaint: Alcohol Stated Complaint: Withdrawl Time Seen by Provider: 11/13/21 09:06 Source: patient, family, RN notes reviewed Mode of arrival: ambulatory Limitations: no limitations - History of Present Illness Initial Comments: 18-year-old male with a history of depression also history of alcohol abuse who states she's been drinking heavily for the past 2 weeks one fifth of vodka per day. His last drink was around midnight last night. The patient complains of some hallucinations and shakes and tremors. Nausea vomiting. No overt abdominal pains this time. He has had some recent falls with some bruising to his left shoulder he states. He's had a headache also. No other complaints or modifying factors MD Complaint: alcohol withdrawal, alcohol dependence - Related Data Home Medications Medication Instructions Recorded Confirmed Amitriptyline HCl [Elavil] 25 mg PO HS 11/13/21 11/13/21 Butalb/Acetaminophen/Caffeine 1 tab PO Q12H PRN 11/13/21 11/13/21 [Esgic 50-325-40 mg Tablet] Cyclobenzaprine [Flexeril] 5 mg PO BID PRN 11/13/21 11/13/21 Allergies Allergy/AdvReac Type Severity Reaction Status Date / Time cat dander Allergy Rash/Hives Verified 11/13/21 11:25 Review of Systems ROS Statement: Those systems with pertinent positive or pertinent negative responses have been documented in the HPI. ROS Other: All systems not noted in ROS Statement are negative. Past Medical History Past Medical History: GERD/Reflux Additional Past Medical History / Comment(s): ETOH abuse with withdrawals (tremors/abdominal pain), past elevated LFTs, History of Any Multi-Drug Resistant Organisms: None Reported Past Surgical History: Hernia Repair, Orthopedic Surgery Additional Past Surgical History / Comment(s): right arm surgery for severed nerve, hernia repair as a child, undescended testicle as a child Past Anesthesia/Blood Transfusion Reactions: No Reported Reaction Past Psychological History: Depression Smoking Status: Never smoker Past Alcohol Use History: Abuse, Daily, Heavy Past Drug Use History: Marijuana - Past Family History Mother Family Medical History: Diabetes Mellitus Additional Family Medical History / Comment(s): family history on maternal side of diabetes Father Additional Family Medical History / Comment(s): Pt has never met his father but knows that he is an alcoholic and agoraphobic. General Exam - General Exam Comments Initial Comments: This a well-developed well-nourished awake alert male he does demonstrate some tremors. Limitations: no limitations General appearance: alert, anxious Head exam: Present: atraumatic, normocephalic, normal inspection Eye exam: Present: normal appearance, PERRL, EOMI. Absent: scleral icterus, conjunctival injection, periorbital swelling ENT exam: Present: mucous membranes dry Neck exam: Present: normal inspection, full ROM, other (Stridor JVD or bruits). Absent: tenderness, meningismus, lymphadenopathy Respiratory exam: Present: normal lung sounds bilaterally. Absent: respiratory distress, wheezes, rales, rhonchi, stridor Cardiovascular Exam: Present: regular rate, normal rhythm, normal heart sounds. Absent: systolic murmur, diastolic murmur, rubs, gallop, clicks GI/Abdominal exam: Present: soft, normal bowel sounds. Absent: distended, tenderness, guarding, rebound, rigid Extremities exam: Present: full ROM, normal capillary refill, other (Ecchymosis seen over the left shoulder however he demonstrates full range of motion no step-off no crepitation minimal tenderness palpation.). Absent: tenderness, pedal edema, joint swelling, calf tenderness Back exam: Present: normal inspection, full ROM. Absent: tenderness Neurological exam: Present: alert, oriented X3, CN II-XII intact Psychiatric exam: Present: normal affect, anxious Skin exam: Present: warm, dry, intact, normal color. Absent: rash Course Vital Signs 11/13/21 11/13/21 11/13/21 09:02 10:20 12:41 Temperature 97.5 F L Pulse Rate 88 70 93 Respiratory 18 18 18 Rate Blood Pressure 147/97 133/92 131/93 O2 Sat by Pulse 98 96 98 Oximetry Medical Decision Making - Medical Decision Making Reevaluation patient reveals he is somewhat improved after this medication still feeling shaky still having some hallucinations. Did discuss case with him and his family as well as with Dr. Lubin. Patient will be admitted for inpatient treatment for alcohol withdrawal - Lab Data Result diagrams: 11/13/21 09:34 11/13/21 09:34 Lab Results 11/13/21 11/13/21 11/13/21 Range/Units 09:34 09:34 09:34 WBC 9.1 (3.8-10.6) k/uL RBC 4.66 (4.30-5.90) m/uL Hgb 13.8 (13.0-17.5) gm/dL Hct 41.6 (39.0-53.0) % MCV 89.2 (80.0-100.0) fL MCH 29.6 (25.0-35.0) pg MCHC 33.1 (31.0-37.0) g/dL RDW 13.5 (11.5-15.5) % Plt Count 219 (150-450) k/uL MPV 9.1 Neutrophils % 76 % Lymphocytes % 17 % Monocytes % 4 % Eosinophils % 1 % Basophils % 1 % Neutrophils # 6.9 (1.3-7.7) k/uL Lymphocytes # 1.6 (1.0-4.8) k/uL Monocytes # 0.4 (0-1.0) k/uL Eosinophils # 0.1 (0-0.7) k/uL Basophils # 0.1 (0-0.2) k/uL Sodium 137 (137-145) mmol/L Potassium 3.9 (3.5-5.1) mmol/L Chloride 101 (98-107) mmol/L Carbon Dioxide 25 (22-30) mmol/L Anion Gap 11 mmol/L BUN 10 (9-20) mg/dL Creatinine 0.78 (0.66-1.25) mg/dL Est GFR (CKD-EPI)AfAm >90 (>60 ml/min/1.73 sqM) Est GFR (CKD-EPI)NonAf >90 (>60 ml/min/1.73 sqM) Glucose 98 (74-99) mg/dL Calcium 9.7 (8.4-10.2) mg/dL Magnesium 1.7 (1.6-2.3) mg/dL Total Bilirubin 0.9 (0.2-1.3) mg/dL AST 49 (17-59) U/L ALT 23 (4-49) U/L Alkaline Phosphatase 97 (38-126) U/L Creatine Kinase 483 H (55-170) U/L Total Protein 7.9 (6.3-8.2) g/dL Albumin 4.8 (3.5-5.0) g/dL Lipase 302 H (23-300) U/L Urine Opiates Screen Not Detected (NotDetected) Ur Oxycodone Screen Not Detected (NotDetected) Urine Methadone Screen Not Detected (NotDetected) Ur Propoxyphene Screen Not Detected (NotDetected) Ur Barbiturates Screen Not Detected (NotDetected) U Tricyclic Antidepress Not Detected (NotDetected) Ur Phencyclidine Scrn Not Detected (NotDetected) Ur Amphetamines Screen Not Detected (NotDetected) U Methamphetamines Scrn Not Detected (NotDetected) U Benzodiazepines Scrn Not Detected (NotDetected) Urine Cocaine Screen Not Detected (NotDetected) U Marijuana (THC) Screen Detected H (NotDetected) Serum Alcohol 10 mg/dL Disposition Clinical Impression: Alcohol withdrawal delirium Disposition: ADMITTED IP TO THIS [facility] Condition: Fair Referrals: Shay Tom MD [Primary Care Provider] - 1-2 days Decision Date: 11/13/21 Decision Time: 12:00
[2021-11-13 09:47] LABS: Basophils # (A) 0.1 k/uL (0-0.2); Basophils % (A) 1 %; Eosinophils # (A) 0.1 k/uL (0-0.7); Eosinophils % (A) 1 %; HCT 41.6 % (39.0-53.0); HGB 13.8 gm/dL (13.0-17.5); Lymphocytes # (A) 1.6 k/uL (1.0-4.8); Lymphocytes % (A) 17 %; MCH 29.6 pg (25.0-35.0); MCHC 33.1 g/dL (31.0-37.0); MCV 89.2 fL (80.0-100.0); Mean Platelet Volume 9.1; Monocytes # (A) 0.4 k/uL (0-1.0); Monocytes % (A) 4 %; Neutrophils # (A) 6.9 k/uL (1.3-7.7); Neutrophils % (A) 76 %; Platelet Count 219 k/uL (150-450); RBC 4.66 m/uL (4.30-5.90); RDW 13.5 % (11.5-15.5); WBC 9.1 k/uL (3.8-10.6)
[2021-11-13 09:57] LABS: ALT 23 U/L (4-49); AST 49 U/L (17-59); African American GFR (CKD) >90 (>60 ml/min/1.73 sqM); Albumin 4.8 g/dL (3.5-5.0); Alcohol 10 mg/dL; Alkaline Phosphatase 97 U/L (38-126); Anion Gap 11 mmol/L; Blood Urea Nitrogen 10 mg/dL (9-20); Calcium 9.7 mg/dL (8.4-10.2); Carbon Dioxide 25 mmol/L (22-30); Chloride 101 mmol/L (98-107); Creatine Kinase 483 U/L (55-170); Glucose 98 mg/dL (74-99); Lipase 302 U/L (23-300); Magnesium 1.7 mg/dL (1.6-2.3); Non-African American GFR(CKD) >90 (>60 ml/min/1.73 sqM); Potassium 3.9 mmol/L (3.5-5.1); Sodium 137 mmol/L (137-145); Total Bilirubin 0.9 mg/dL (0.2-1.3); Total Protein 7.9 g/dL (6.3-8.2)
[2021-11-13 09:59] LABS: Amphetamine Screen,Urine Not Detected (NotDetected); Barbiturate Screen,Urine Not Detected (NotDetected); Benzodiazepines Screen,Urine Not Detected (NotDetected); Cocaine Screen,Urine Not Detected (NotDetected); Methadone Screen, Urine Not Detected (NotDetected); Opiate Screen,Urine Not Detected (NotDetected); Oxycodone Screen, Urine Not Detected (NotDetected); Phencyclidine Screen,Urine Not Detected (NotDetected); Tricyclic Antidepressant,Urine Not Detected (NotDetected); Urn Cannabinoid Scrn Detected (NotDetected)
[2021-11-13] MEDS ORDERED: ONDANSETRON 4 MG/2 ML VIAL IVP PRN (13:23)
[2021-11-13] MEDS ORDERED: NALOXONE 0.4 MG/ML 1 ML VIAL IV PRN (13:23)
[2021-11-13] MEDS ORDERED: LORazepam 1 MG TAB PO PRN ×3 (13:25)
[2021-11-13] MEDS ORDERED: SODIUM CHLORIDE 0.9% 1,000 ML IV SCH (13:30)
[2021-11-13 16:10] VITALS: BP 146/89; PULSE 73
[2021-11-13] MEDS ORDERED: THIAMINE 100 MG TAB PO SCH (17:30)
== END 2021-11-13 17:09 | disposition left against medical advice (07) | DRG 894 ==
LOC: EC 08:57 → 4SSUR 13:23
PROVIDERS: ADMIT Family Medicine; ATTEND Family Medicine
DX: F10.231 Alcohol dependence with withdrawal delirium (principal); S40.012A Contusion of left shoulder, initial encounter; Z53.29 Procedure and treatment not carried out because of patient's decision for other reasons; Y90.0 Blood alcohol level of less than 20 mg/100 ml; K21.9 Gastro-esophageal reflux disease without esophagitis; R11.2 Nausea with vomiting, unspecified; J30.81 Allergic rhinitis due to animal (cat) (dog) hair and dander; R29.6 Repeated falls; Z91.81 History of falling
CPT/HCPCS: 36415; 80053; 80306; 80320; 82550; 83690; 83735; 85025; 96372; 96374; 99284

== ENCOUNTER 2023-06-15 05:11 | Observation (INO) | payer OTHER ==
[2023-06-15 05:48] LABS: Basophils # (A) 0.1 k/uL (0-0.2); Basophils % (A) 1 %; Eosinophils % (A) 0 %; HCT 44.5 % (39.0-53.0); Lymphocytes # (A) 2.3 k/uL (1.0-4.8); Lymphocytes % (A) 38 %; MCH 28.6 pg (25.0-35.0); MCHC 33.8 g/dL (31.0-37.0); MCV 84.8 fL (80.0-100.0); Mean Platelet Volume 9.7; Monocytes # (A) 0.4 k/uL (0-1.0); Monocytes % (A) 7 %; Neutrophils # (A) 3.1 k/uL (1.3-7.7); Neutrophils % (A) 52 %; Platelet Count 194 k/uL (150-450); RBC 5.25 m/uL (4.30-5.90)
[2023-06-15 06:00] LABS: ALT 39 U/L (4-49); AST 66 U/L (17-59); African American GFR (CKD) >90 (>60 ml/min/1.73 sqM); Albumin 4.9 g/dL (3.5-5.0); Alkaline Phosphatase 78 U/L (38-126); Anion Gap 17 mmol/L; Blood Urea Nitrogen 8 mg/dL (9-20); Calcium 8.9 mg/dL (8.4-10.2); Carbon Dioxide 21 mmol/L (22-30); Chloride 101 mmol/L (98-107); Glucose 150 mg/dL (74-99); Non-African American GFR(CKD) >90 (>60 ml/min/1.73 sqM); Sodium 139 mmol/L (137-145); Total Bilirubin 0.7 mg/dL (0.2-1.3); Total Protein 8.1 g/dL (6.3-8.2)
[2023-06-15 06:01] LABS: Alcohol 241 mg/dL
--- NOTE | 2023-06-15 06:26 | ED ---
Alcohol HPI - General Chief Complaint: Alcohol Stated Complaint: Alcohol withdraw Time Seen by Provider: 06/15/23 06:24 Source: patient, RN notes reviewed Mode of arrival: ambulatory Limitations: no limitations - History of Present Illness Initial Comments: 28-year-old male presents emergency department chief complaint of alcohol abuse. Patient states he binge drinks. Patient states has been drinking approximately 1/5 of alcohol daily. Patient states he has severe withdrawal symptoms when he stops drinking. He states he is trying to stop drinking again he states he is gone to rehab once. Patient complains of abdominal pain, mild headache. Faiza ponce does admit that he drank recently. - Related Data Home Medications Medication Instructions Recorded Confirmed No Known Home Medications 06/15/23 06/15/23 Allergies Allergy/AdvReac Type Severity Reaction Status Date / Time cat dander Allergy Rash/Hives Verified 06/15/23 08:13 Review of Systems ROS Statement: Those systems with pertinent positive or pertinent negative responses have been documented in the HPI. ROS Other: All systems not noted in ROS Statement are negative. Past Medical History Past Medical History: GERD/Reflux Additional Past Medical History / Comment(s): ETOH abuse with withdrawals (tremors/abdominal pain), past elevated LFTs, History of Any Multi-Drug Resistant Organisms: None Reported Past Surgical History: Hernia Repair, Orthopedic Surgery Additional Past Surgical History / Comment(s): right arm surgery for severed nerve, hernia repair as a child, undescended testicle as a child Past Anesthesia/Blood Transfusion Reactions: No Reported Reaction Past Psychological History: Depression Smoking Status: Never smoker Past Alcohol Use History: Abuse, Daily, Heavy Past Drug Use History: Marijuana - Past Family History Mother Family Medical History: Diabetes Mellitus Additional Family Medical History / Comment(s): family history on maternal side of diabetes Father Additional Family Medical History / Comment(s): Pt has never met his father but knows that he is an alcoholic and agoraphobic. General Exam - General Exam Comments Initial Comments: Visual Physical Exam Vital signs reviewed General: Well-appearing, nontoxic, no acute distress. Head: Normocephalic, atraumatic Eyes: PERRLA, EOMI ENT: Airway patent Chest: Nonlabored breathing Skin: No visual rash, normal skin tone Neuro: Alert and oriented 3 Musculoskeletal: No gross abnormalities Limitations: no limitations General appearance: alert, in no apparent distress Head exam: Present: atraumatic, normocephalic, normal inspection Eye exam: Present: normal appearance, PERRL, EOMI. Absent: scleral icterus, conjunctival injection, periorbital swelling ENT exam: Present: normal exam, normal oropharynx, mucous membranes moist Neck exam: Present: normal inspection, full ROM. Absent: tenderness, meningismus, lymphadenopathy Respiratory exam: Present: normal lung sounds bilaterally. Absent: respiratory distress, wheezes, rales, rhonchi, stridor Cardiovascular Exam: Present: regular rate, normal rhythm, normal heart sounds. Absent: systolic murmur, diastolic murmur, rubs, gallop, clicks GI/Abdominal exam: Present: soft, tenderness, normal bowel sounds. Absent: distended, guarding, rebound, rigid Course Vital Signs 06/15/23 06/15/23 06/15/23 05:17 08:28 11:00 Temperature 98.3 F Pulse Rate 99 91 85 Respiratory 16 18 18 Rate Blood Pressure 140/99 142/82 136/92 O2 Sat by Pulse 95 97 98 Oximetry Medical Decision Making - Medical Decision Making I completed the quick note portion of this chart signed He Novoa PA-C Was pt. sent in by a medical professional or institution ([facility], [employer], urgent care, hospital, or [facility]...) When possible be specific @ -No Did you speak to anyone other than the patient for history (EMS, parent, family, police, friend...)? What history was obtained from this source @ -No Did you review nursing and triage notes (agree or disagree)? Why? @ -I reviewed and agree with nursing and triage notes Were old charts reviewed (outside hosp., previous admission, EMS record, old EKG, old radiological studies, urgent care reports/EKG's, [facility] records)? Report findings @ -[Reviewed laboratory studies Differential Diagnosis (chest pain, altered mental status, abdominal pain women, abdominal pain men, vaginal bleeding, weakness, fever, dyspnea, syncope, headache, dizziness, GI bleed, back pain, seizure, CVA, palpatations, mental health, musculoskeletal)? @ -Alcohol abuse, pancreatitis, alcohol intoxication EKG interpreted by me (3pts min.). @ -None X-rays interpreted by me (1pt min.). @ -[None done CT interpreted by me (1pt min.). @ -None done U/S interpreted by me (1pt. min.). @ -None done What testing was considered but not performed or refused? (CT, X-rays, U/S, labs)? Why? @ -None What meds were considered but not given or refused? Why? @ -None Did you discuss the management of the patient with other professionals (professionals i.e. , PA, [employer], lab, RT, psych nurse, social service manager, postal supervisor, teacher, attendance officer, supportive employment case manager)? Give summary @ -Dr. Tom for admission Was smoking cessation discussed for >3mins.? @ -No Was critical care preformed (if so, how long)? @ -No Were there social determinants of health that impacted care today? How? (Homelessness, low income, unemployed, alcoholism, drug addiction, transportation, low edu. Level, literacy, decrease access to med. care, intermediate, rehab)? @ -No Was there de-escalation of care discussed even if they declined (Discuss DNR or withdrawal of care, Hospice)? DNR status @ -No What co-morbidities impacted this encounter? (DM, HTN, Smoking, COPD, CAD, Cancer, CVA, ARF, Chemo, Hep., AIDS, mental health diagnosis, sleep apnea, morbi d obesity)? @ -[Alcohol abuse Was patient admitted / discharged? Hospital course, mention meds given and route, prescriptions, significant lab abnormalities, going to OR and other pertinent info. @ -Admitted patient had significant alcohol withdrawal in the past he has moderate hypokalemia. Patient will be admitted for alcohol withdraw, possible rehab, started on maintenance fluids, potassium replacement Undiagnosed new problem with uncertain prognosis? @ -No Drug Therapy requiring intensive monitoring for toxicity (Heparin, Nitro, Insulin, Cardizem)? @ -No Were any procedures done? @ -No Diagnosis/symptom? @ -[Alcohol intoxication, alcohol abuse, hypokalemia alcohol withdrawal Acute, or Chronic, or Acute on Chronic? @ -Acute Uncomplicated (without systemic symptoms) or Complicated (systemic symptoms)? @ -[Complicated Side effects of treatment? @ -[No Exacerbation, Progression, or Severe Exacerbation? @ -No Poses a threat to life or bodily function? How? (Chest pain, USA, MA, pneumonia, PE, COPD, DKA, ARF, appy, cholecystitis, CVA, Diverticulitis, Homicidal, Suicidal, threat to staff... and all critical care pts) @ -No - Lab Data Result diagrams: 06/15/23 05:38 06/15/23 05:38 Lab Results 06/15/23 06/15/23 06/15/23 Range/Units 05:38 05:38 06:39 WBC 6.0 (3.8-10.6) k/uL RBC 5.25 (4.30-5.90) m/uL Hgb 15.0 (13.0-17.5) gm/dL Hct 44.5 (39.0-53.0) % MCV 84.8 (80.0-100.0) fL MCH 28.6 (25.0-35.0) pg MCHC 33.8 (31.0-37.0) g/dL RDW 13.0 (11.5-15.5) % Plt Count 194 (150-450) k/uL MPV 9.7 Neutrophils % 52 % Lymphocytes % 38 % Monocytes % 7 % Eosinophils % 0 % Basophils % 1 % Neutrophils # 3.1 (1.3-7.7) k/uL Lymphocytes # 2.3 (1.0-4.8) k/uL Monocytes # 0.4 (0-1.0) k/uL Eosinophils # 0.0 (0-0.7) k/uL Basophils # 0.1 (0-0.2) k/uL Sodium 139 (137-145) mmol/L Potassium 3.0 L (3.5-5.1) mmol/L Chloride 101 (98-107) mmol/L Carbon Dioxide 21 L (22-30) mmol/L Anion Gap 17 mmol/L BUN 8 L (9-20) mg/dL Creatinine 0.83 (0.66-1.25) mg/dL Est GFR (CKD-EPI)AfAm >90 (>60 ml/min/1.73 sqM) Est GFR (CKD-EPI)NonAf >90 (>60 ml/min/1.73 sqM) Glucose 150 H (74-99) mg/dL Calcium 8.9 (8.4-10.2) mg/dL Magnesium 1.8 (1.6-2.3) mg/dL Total Bilirubin 0.7 (0.2-1.3) mg/dL AST 66 H (17-59) U/L ALT 39 (4-49) U/L Alkaline Phosphatase 78 (38-126) U/L Total Protein 8.1 (6.3-8.2) g/dL Albumin 4.9 (3.5-5.0) g/dL Lipase 161 (23-300) U/L Serum Alcohol 241 H* mg/dL Disposition Clinical Impression: Abdominal pain, Alcohol withdrawal, Alcohol intoxication, Hypokalemia Disposition: ADMITTED IP TO THIS [facility] Time of Disposition: 07:40
[2023-06-15 06:49] LABS: Magnesium 1.8 mg/dL (1.6-2.3)
[2023-06-15] MEDS ORDERED: NALOXONE 0.4 MG/ML 1 ML VIAL IV PRN (07:40)
[2023-06-15] MEDS ORDERED: ONDANSETRON 4 MG/2 ML VIAL IVP PRN (07:40)
[2023-06-15] MEDS ORDERED: LORazepam 2 MG/ML INJ IV PRN (07:41)
[2023-06-15] MEDS ORDERED: SODIUM CHLORIDE 0.9% 1,000 ML IV ONE (07:41)
[2023-06-15] MEDS ORDERED: POTASSIUM CHLORIDE ER 20 MEQ TAB.ER PO STA ×2 (07:41→16:12)
[2023-06-15] MEDS: SODIUM CHLORIDE 0.9% 1,000 ML IV SCH ×2 (08:32→22:17)
[2023-06-15] MEDS: PANTOPRAZOLE 40 MG/10 ML VIAL IV SCH (08:37)
[2023-06-15] MEDS: LORazepam 2 MG/ML INJ IV PRN ×4 (13:16→21:16)
--- NOTE | 2023-06-15 15:46 | P.HPIM ---
History of Present Illness H&P Date: 06/15/23 Chief Complaint: Alcohol withdrawal This is a 28-year-old male with past medical history significant for alcohol abuse, depression, anxiety, presented to the ER, acutely intoxicated, with tremor, anxiety and nausea. Reports he has been drinking 1/5 daily, last drink this morning at 05 30. States he was discharged from another hospital 3 days ago, and resumed drinking.Denies suicidal /homicidal ideation. Reports "anxiety attacks", poor sleep, low energy. No vomiting. Vital signs stable, maintaining O2 sats in the high 90s on room air. Lipase 302, decreased to 161. Potassium 3, supplemented, magnesium 1.8. Hematology unremarkable. Denies chest pain, palpitations or shortness of breath. Review of Systems Review of Systems All systems: negative Constitutional: Reports malaise, Denies chills, Denies fever Eyes: denies blurred vision, denies pain Ears, nose, mouth and throat: Denies headache, Denies sore throat Cardiovascular: Denies chest pain, Denies shortness of breath Respiratory: Denies cough Gastrointestinal: Reports abdominal pain, Denies diarrhea, Denies nausea, Denies vomiting Musculoskeletal: Denies myalgias Integumentary: Denies pruritus, Denies rash Neurological: Denies numbness, Denies weakness Psychiatric: Denies anxiety, Denies depression Endocrine: Denies fatigue, Denies weight change Past Medical History Past Medical History: GERD/Reflux Additional Past Medical History / Comment(s): ETOH abuse with withdrawals (tremors/abdominal pain), past elevated LFTs, History of Any Multi-Drug Resistant Organisms: None Reported Past Surgical History: Hernia Repair, Orthopedic Surgery Additional Past Surgical History / Comment(s): right arm surgery for severed nerve, hernia repair as a child, undescended testicle as a child Past Anesthesia/Blood Transfusion Reactions: No Reported Reaction Past Psychological History: Depression Smoking Status: Never smoker Past Alcohol Use History: Abuse, Daily, Heavy Past Drug Use History: Marijuana - Past Family History Mother Family Medical History: Diabetes Mellitus Additional Family Medical History / Comment(s): family history on maternal side of diabetes Father Additional Family Medical History / Comment(s): Pt has never met his father but knows that he is an alcoholic and agoraphobic. Medications and Allergies Home Medications Medication Instructions Recorded Confirmed Type No Known Home Medications 06/15/23 06/15/23 History Allergies Allergy/AdvReac Type Severity Reaction Status Date / Time cat dander Allergy Rash/Hives Verified 06/15/23 08:13 Physical Exam Vitals: Vital Signs Temp Pulse Resp BP Pulse Ox 06/15/23 13:14 80 18 125/78 96 06/15/23 11:00 85 18 136/92 98 06/15/23 08:28 91 18 142/82 97 06/15/23 05:17 98.3 F 99 16 140/99 95 Intake and Output 06/15/23 06/15/23 06/15/23 06:59 14:59 22:59 Other: Weight 88.451 kg Gen: well developed well nourished male in NAD HEENT: NC/AT, mmm CV: RRR, no murmur Lungs: normal effort, clear throughout Abd: soft, epigastric tenderness Skin: warm and dry Results CBC & Chem 7: 06/15/23 05:38 06/15/23 05:38 Labs: Abnormal Lab Results - Last 24 Hours (Table) 06/15/23 Range/Units 05:38 Potassium 3.0 L (3.5-5.1) mmol/L Carbon Dioxide 21 L (22-30) mmol/L BUN 8 L (9-20) mg/dL Glucose 150 H (74-99) mg/dL AST 66 H (17-59) U/L Serum Alcohol 241 H* mg/dL Assessment and Plan Assessment: Alcohol intoxication, acute pancreatitis, secondary to the above, resolved with IV fluid hydration Abdominal pain Hypokalemia Alcohol abuse Cannabis use disorder Major depressive disorder Anxiety disorder Plan: Continue on current medication regimen, monitoring and symptomatic treatme nt. Potassium replacements ordered with recheck later this afternoon. IV fluid hydration, PPI, CIWA protocol.Alcohol cessation counseling. The impression and plan of care has been dictated as directed. : I performed a history and examination of this patient, discussed the same with the dictator. I agree with the dictator's note ,documented as a scribe. Any additional findings or plans will be noted.
[2023-06-15] MEDS: QUEtiapine 50 MG TAB PO SCH (20:58)
[2023-06-16 07:32] LABS: African American GFR (CKD) >90 (>60 ml/min/1.73 sqM); Anion Gap 8 mmol/L; Blood Urea Nitrogen 7 mg/dL (9-20); Calcium 9.2 mg/dL (8.4-10.2); Carbon Dioxide 23 mmol/L (22-30); Chloride 103 mmol/L (98-107); Glucose 76 mg/dL (74-99); Non-African American GFR(CKD) >90 (>60 ml/min/1.73 sqM); Potassium 3.6 mmol/L (3.5-5.1); Sodium 134 mmol/L (137-145)
[2023-06-16] MEDS ORDERED: THIAMINE 100 MG TAB PO SCH (09:00)
[2023-06-16] MEDS: PANTOPRAZOLE 40 MG/10 ML VIAL IV SCH (09:08)
[2023-06-16] MEDS: SODIUM CHLORIDE 0.9% 1,000 ML IV SCH ×2 (18:09→21:29)
[2023-06-16] MEDS: LORazepam 2 MG/ML INJ IV PRN (18:17)
[2023-06-16 20:27] VITALS: BP 160/100; PULSE 80; RESP 16; TEMP 97.8
[2023-06-16] MEDS: QUEtiapine 50 MG TAB PO SCH (21:29)
--- NOTE | 2023-06-17 11:05 | P.PN ---
Subjective Progress Note Date: 06/16/23 06/15/23 This is a 28-year-old male with past medical history significant for alcohol abuse, depression, anxiety, presented to the ER, acutely intoxicated, with tremor, anxiety and nausea. Reports he has been drinking 1/5 daily, last drink this morning at 05 30. States he was discharged from another hospital 3 days ago, and resumed drinking.Denies suicidal /homicidal ideation. Reports "anxiety attacks", poor sleep, low energy. No vomiting. Vital signs stable, maintaining O2 sats in the high 90s on room air. Lipase 302, decreased to 161. Potassium 3, supplemented, magnesium 1.8. Hematology unremarkable. Denies chest pain, palpitations or shortness of breath. 06/16/23 maintained on IV fluids, CIWA protocol and Seroquel. CIWA score currently 3. Trace tremor. Denies chest pain, palpitations or shortness of breath. Afebrile, maintaining O2 sats in the high 90s on room air. Consumes 75% of breakfast with no nausea vomiting or diarrhea.Reports significant decr ease in abdominal pain. Objective - Vital Signs Vital signs: Vital Signs Temp 98.1 F 06/16/23 12:00 Pulse 71 06/16/23 12:00 Resp 18 06/16/23 12:00 BP 136/77 06/16/23 12:00 Pulse Ox 99 06/16/23 12:00 FiO2 Intake & Output 06/15/23 06/16/23 06/16/23 18:59 06:59 18:59 Output Total 1 Balance -1 Weight 88.451 kg Output: Emesis 1 Other: # Voids 2 - Exam Gen: Sitting up in bed, alert and oriented x 3, NAD HEENT: NC/AT, mmm CV: RRR, no murmur Lungs: Unlabored, equal air entry, clear throughout Abd: soft, nondistended, nontender, positive bowel sounds Skin: warm and dry - Labs CBC & Chem 7: 06/15/23 05:38 06/16/23 06:13 Labs: Abnormal Lab Results - Last 24 Hours (Table) 06/16/23 Range/Units 06:13 Sodium 134 L (137-145) mmol/L BUN 7 L (9-20) mg/dL Assessment and Plan Assessment: Alcohol intoxication, acute pancreatitis, secondary to the above, resolved with IV fluid hydration Abdominal pain Hypokalemia Alcohol abuse Cannabis use disorder Major depressive disorder Anxiety disorder Plan: Continue on current medication regimen, monitoring and symptomatic treatment. Maintain IV fluid hydration, PPI, CIWA protocol.Alcohol cessation counseling. Discussed community resources ,resources options of Vivitrol, Antabuse at discharge. Increase ambulation as tolerated. The impression and plan of care has been dictated as directed. : I performed a history and examination of this patient, discussed the same with the dictator. I agree with the dictator's note ,documented as a scribe. Any additional findings or plans will be noted.
--- NOTE | 2023-06-17 11:09 | P.DS ---
Providers Date of admission: 06/15/23 07:42 Expected date of discharge: 06/16/23 Attending physician: Shay Tom MD Primary care physician: Shay Tom MD Hospital Course: Final Diagnoses: Alcohol intoxication, acute pancreatitis, secondary to the above, resolved with IV fluid hydration Abdominal pain Hypokalemia Alcohol abuse Cannabis use disorder Major depressive disorder Anxiety disorder Hospital course06/15/23 This is a 28-year-old male with past medical history significant for alcohol abuse, depression, anxiety, presented to the ER, acutely intoxicated, with tremor, anxiety and nausea. Reports he has been drinking 1/5 daily, last drink this morning at 05 30. States he was discharged from another hospital 3 days ago, and resumed drinking.Denies suicidal /homicidal ideation. Reports "anxiety attacks", poor sleep, low energy. No vomiting. Vital signs stable, maintaining O2 sats in the high 90s on room air. Lipase 302, decreased to 161. Potassium 3, supplemented, magnesium 1.8. Hematology unremarkable. Denies chest pain, palpitations or shortness of breath. 06/16/23 maintained on IV fluids, CIWA protocol and Seroquel. CIWA score currently 3. Trace tremor. Denies chest pain, palpitations or shortness of breath. Afebrile, maintaining O2 sats in the high 90s on room air. Consumes 75% of breakfast with no nausea vomiting or diarrhea.Reports significant decrease in abdominal pain. Patient left AMA in the evening, CIWA score 1 prior. The impression and plan of care has been dictated as directed. : I performed a history and examination of this patient, discussed the same with the dictator. I agree with the dictator's note ,documented as a scribe. Any additional findings or plans will be noted. Plan - Discharge Summary Discharge Rx Participant: No New Discharge Prescriptions: No Action No Known Home Medications Discharge Medication List No Known Home Medications 06/15/23 [History] Follow up Appointment(s)/Referral(s): Shay Tom MD [Primary Care Provider] - 1-2 days Discharge/Stand Alone Forms: AA Meetings [place], Outpatient Counseling, Inp Substance Abuse Facilities Discharge Disposition: LEFT AGAINST MEDICAL ADVICE
== END 2023-06-16 10:20 | disposition left against medical advice (07) ==
LOC: EC 05:11 → 6NMEDSUR 07:42 → 1SOBS 15:19
PROVIDERS: ADMIT Family Medicine; ATTEND Family Medicine
DX: F10.129 Alcohol abuse with intoxication, unspecified (principal); F10.139 Alcohol abuse with withdrawal, unspecified; K85.90 Acute pancreatitis without necrosis or infection, unspecified; E87.6 Hypokalemia; F32.9 Major depressive disorder, single episode, unspecified; F41.9 Anxiety disorder, unspecified; F12.90 Cannabis use, unspecified, uncomplicated; Y90.8 Blood alcohol level of 240 mg/100 ml or more; Z53.29 Procedure and treatment not carried out because of patient's decision for other reasons; Z91.048 Other nonmedicinal substance allergy status; Z81.1 Family history of alcohol abuse and dependence
CPT/HCPCS: 96361 ×2; 96376 ×3; 96374; 96375; 99285; 36415; 80053; 80048; 83690; 83735; 84132; 85025; G0378 ×3; G0480; J2060 ×2; C9113 ×2; 80320

== ENCOUNTER 2024-06-05 19:54 | Observation (INO) | payer OTHER ==
--- NOTE | 2024-06-05 21:03 | ED ---
Alcohol HPI - General Chief Complaint: Alcohol Stated Complaint: Alcohol Withdrawls Time Seen by Provider: 06/05/24 21:02 Source: patient, RN notes reviewed, old records reviewed Mode of arrival: ambulatory - History of Present Illness Initial Comments: This is a 29-year-old male about 8 hours 9 hours past close last drink. Patient has history of severe alcohol withdrawal alcohol withdrawal syndromes feeling well. 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) (8) Associated Symptoms: denies other symptoms Treatments Prior to Arrival: none Chronic Alcohol Use: Yes - Related Data Home Medications Medication Instructions Recorded Confirmed Viloxazine HCl [Qelbree] 200 mg PO DAILY 06/06/24 06/06/24 lisinopriL [Prinivil] 10 mg PO DAILY 06/06/24 06/06/24 Previous Rx's Medication Instructions Recorded Folic Acid 1 mg PO DAILY tab 06/07/24 Multivitamins, Thera [Multivitamin 1 each PO DAILY tab 06/07/24 (formulary)] Thiamine [Vitamin B-1] 100 mg PO DAILY tab 06/07/24 Allergies Allergy/AdvReac Type Severity Reaction Status Date / Time cat dander Allergy Rash/Hives Verified 06/06/24 08:16 Review of Systems ROS Statement: Those systems with pertinent positive or pertinent negative responses have been documented in the HPI. ROS Other: All systems not noted in ROS Statement are negative. Past Medical History Past Medical History: GERD/Reflux Additional Past Medical History / Comment(s): ETOH abuse with withdrawals (tremors/abdominal pain), past elevated LFTs, History of Any Multi-Drug Resistant Organisms: None Reported Past Surgical History: Hernia Repair, Orthopedic Surgery Additional Past Surgical History / Comment(s): right arm surgery for severed nerve, hernia repair as a child, undescended testicle as a child Past Anesthesia/Blood Transfusion Reactions: No Reported Reaction Past Psychological History: Anxiety, Depression Smoking Status: Never smoker Past Alcohol Use History: Abuse, Daily, Heavy Past Drug Use History: Marijuana - Past Family History Mother Family Medical History: Diabetes Mellitus Additional Family Medical History / Comment(s): family history on maternal side of diabetes Father Additional Family Medical History / Comment(s): Pt has never met his father but knows that he is an alcoholic and agoraphobic. General Exam General appearance: alert, in no apparent distress, anxious Head exam: Present: atraumatic, normocephalic, normal inspection Eye exam: Present: normal appearance, PERRL, EOMI. Absent: scleral icterus, conjunctival injection, periorbital swelling ENT exam: Present: normal exam, mucous membranes moist Neck exam: Present: normal inspection. Absent: tenderness, meningismus, lymphadenopathy Respiratory exam: Present: normal lung sounds bilaterally. Absent: respiratory distress, wheezes, rales, rhonchi, stridor Cardiovascular Exam: Present: normal rhythm, tachycardia, normal heart sounds. Absent: systolic murmur, diastolic murmur, rubs, gallop, clicks GI/Abdominal exam: Present: soft, normal bowel sounds. Absent: distended, tenderness, guarding, rebound, rigid Extremities exam: Present: normal inspection, full ROM, normal capillary refill. Absent: tenderness, pedal edema, joint swelling, calf tenderness Back exam: Present: normal inspection Neurological exam: Present: alert, oriented X3, CN II-XII intact Psychiatric exam: Present: normal affect, normal mood Skin exam: Present: warm, dry, intact, normal color. Absent: rash Course Vital Signs 06/05/24 06/05/24 06/06/24 20:10 22:11 01:11 Temperature 97.9 F Pulse Rate 112 H 88 104 H Respiratory 18 18 18 Rate Blood Pressure 137/85 158/98 113/84 O2 Sat by Pulse 98 96 94 L Oximetry 06/06/24 06/06/24 06/06/24 04:53 06:55 07:43 Temperature 98.2 F Pulse Rate 103 H 102 H 92 Respiratory 14 18 18 Rate Blood Pressure 117/75 127/93 119/75 O2 Sat by Pulse 97 98 96 Oximetry 06/06/24 06/06/24 13:24 16:13 Temperature Pulse Rate 87 88 Respiratory 18 18 Rate Blood Pressure 145/88 140/94 O2 Sat by Pulse 97 98 Oximetry - Reevaluation(s) Reevaluation #1: 06/05/24 21:46 Medical records reviewed Reevaluation #2: 06/05/24 21:46 Patient symptoms unchanged Reevaluation #3: 06/05/24 21:46 Patient informed of results and questions answered Reevaluation #4: Was pt. sent in by a medical professional or institution (MERLE Melendez, INTERNET MERCHANT, urgent care, hospital, or halfway...) When possible be specific @ -no Did you speak to anyone other than the patient for history (EMS, parent, family, police, friend...)? What history was obtained from this source @ -no Did you review nursing and triage notes (agree or disagree)? Why? @ -agree Are old charts reviewed (outside hosp., previous admission, EMS record, old EKG, old radiological studies, urgent care reports/EKG's, halfway records)? Report findings @ -yes Differential Diagnosis (chest pain, altered mental status, abdominal pain women, abdominal pain men, vaginal bleeding, weakness, fever, dyspnea, syncope, he adache, dizziness, GI bleed, back pain, seizure, CVA, palpatations, mental health, musculoskeletal)? @ -prior EKG interpreted by me (3pts min.). @ -no X-rays interpreted by me (1pt min.). @ -no CT interpreted by me (1pt min.). @ -no U/S interpreted by me (1pt. min.). @ -no What testing was considered but not performed or refused? (CT, X-rays, U/S, labs)? Why? @ -none What meds were considered but not given or refused? Why? @ -none Did you discuss the management of the patient with other professionals (professionals i.e. MERLE Melendez, INTERNET MERCHANT, lab, RT, psych nurse, social services coordinator, thrasher feeder, teacher, financial aids officer, gearcase assembler)? Give summary @ -no Was smoking cessation discussed for >3mins.? @ -no Was critical care preformed (if so, how long)? @ -no Were there social determinants of health that impacted care today? How? (Homelessness, low income, unemployed, alcoholism, drug addiction, tra nsportation, low edu. Level, literacy, decrease access to med. care, [facility], rehab)? @ -none Was there de-escalation of care discussed even if they declined (Discuss DNR or withdrawal of care, Hospice)? DNR status @ -no What co-morbidities impacted this encounter? (DM, HTN, Smoking, COPD, CAD, Cance r, CVA, ARF, Chemo, Hep., AIDS, mental health diagnosis, sleep apnea, morbid obesity)? @ -none Was patient admitted / discharged? Hospital course, mention meds given and route, prescriptions, significant lab abnormalities, going to OR and other pertinent info. @ - 29 male to ER with acute alcohol withdrawal. Patient will be admitted for severe alcohol withdrawal here in the emergency department Admitted Undiagnosed new problem with uncertain prognosis? @ -no Drug Therapy requiring intensive monitoring for toxicity (Heparin, Nitro, Insulin, Cardizem)? @ -no Were any procedures done? @ -no Diagnosis/symptom? @ -Alcohol with drawl likely, alcohol intoxication Acute, or Chronic, or Acute on Chronic? @ -Acute Uncomplicated (without systemic symptoms) or Complicated (systemic symptoms)? @ -Complicated Side effects of treatment? @ -no Exacerbation, Progression, or Severe Exacerbation? @ -exacerbation Poses a threat to life or bodily function? How? (Chest pain, USA, DE, pneumonia, PE, COPD, DKA, ARF, appy, cholecystitis, CVA, Diverticulitis, Homicidal, Suicidal, threat to staff... and all critical care pts) @ -yes severe alcohol intoxication Reevaluation #5: Differential Altered Mental Status: Hypoglycemia, DKA, hypercapnia, ETOH, overdose, CO poisoning, trauma, myxedema coma, HTN encephalopathy, infection, encephalitis, psychosis, intercranial he morrhage, hepatic encephalopathy, meningitis, CVA, this is not meant to be an all-inclusive list - Consultations Consultation #1: Spoke with admitting physicians who agreed to admit this patient Medical Decision Making - Medical Decision Making 29 male to ER with acute alcohol withdrawal. Patient will be admitted for severe alcohol withdrawal here in the emergency department - Lab Data Result diagrams: 06/07/24 05:55 06/07/24 05:55 Lab Results 06/05/24 06/05/24 06/05/24 Range/Units 21:25 21:25 : WBC 7.1 (3.8-10.6) k/uL RBC 5.60 (4.30-5.90) m/uL Hgb 15.7 (13.0-17.5) gm/dL Hct 47.1 (39.0-53.0) % MCV 84.1 (80.0-100.0) fL MCH 28.1 (25.0-35.0) pg MCHC 33.4 (31.0-37.0) g/dL RDW 12.6 (11.5-15.5) % Plt Count 286 (150-450) k/uL MPV 7.9 Neutrophils % 69 % Lymphocytes % 22 % Monocytes % 5 % Eosinophils % 1 % Basophils % 1 % Neutrophils # 4.9 (1.3-7.7) k/uL Lymphocytes # 1.6 (1.0-4.8) k/uL Monocytes # 0.4 (0-1.0) k/uL Eosinophils # 0.1 (0-0.7) k/uL Basophils # 0.1 (0-0.2) k/uL PT 10.1 (10.0-12.5) sec INR 0.9 (<1.2) Sodium 143 (137-145) mmol/L Potassium 4.3 (3.5-5.1) mmol/L Chloride 101 (98-107) mmol/L Carbon Dioxide 28 (22-30) mmol/L Anion Gap 14 mmol/L BUN 14 (9-20) mg/dL Creatinine 0.85 (0.66-1.25) mg/dL Est GFR (CKD-EPI)AfAm >90 (>60 ml/min/1.73 sqM) Est GFR (CKD-EPI)NonAf >90 (>60 ml/min/1.73 sqM) Glucose 149 H (74-99) mg/dL Calcium 9.3 (8.4-10.2) mg/dL Phosphorus 2.1 L (2.5-4.5) mg/dL Magnesium 2.0 (1.6-2.3) mg/dL Total Bilirubin 0.5 (0.2-1.3) mg/dL AST 79 H (17-59) U/L ALT 46 (4-49) U/L Alkaline Phosphatase 84 (38-126) U/L Total Protein 8.4 H (6.3-8.2) g/dL Albumin 4.9 (3.5-5.0) g/dL Lipase 653 H (23-300) U/L Serum Alcohol 293 H* mg/dL Disposition Clinical Impression: Alcohol withdrawal, Major depressive disorder, Depression, Alcohol intoxication Disposition: ADMITTED IP TO THIS [facility] Condition: Fair Is patient prescribed a controlled substance at d/c from ED?: No Time of Disposition: 21:45
[2024-06-05] MEDS ORDERED: LORazepam 2 MG/ML INJ IV PRN (21:14)
[2024-06-05] MEDS ORDERED: LORazepam 0.5 MG TAB PO PRN (21:14)
[2024-06-05] MEDS ORDERED: LORazepam 1 MG TAB PO PRN ×3 (21:14)
[2024-06-05] MEDS: LORazepam 2 MG/ML INJ IV STA (21:25)
[2024-06-05] MEDS: SODIUM CHLORIDE 0.9% 1,000 ML IV STA (21:25)
[2024-06-05 21:30] LABS: Basophils # (A) 0.1 k/uL (0-0.2); Basophils % (A) 1 %; Eosinophils # (A) 0.1 k/uL (0-0.7); Eosinophils % (A) 1 %; HCT 47.1 % (39.0-53.0); HGB 15.7 gm/dL (13.0-17.5); Lymphocytes # (A) 1.6 k/uL (1.0-4.8); Lymphocytes % (A) 22 %; MCH 28.1 pg (25.0-35.0); MCHC 33.4 g/dL (31.0-37.0); MCV 84.1 fL (80.0-100.0); Mean Platelet Volume 7.9; Monocytes # (A) 0.4 k/uL (0-1.0); Monocytes % (A) 5 %; Neutrophils # (A) 4.9 k/uL (1.3-7.7); Neutrophils % (A) 69 %; Platelet Count 286 k/uL (150-450); RDW 12.6 % (11.5-15.5); WBC 7.1 k/uL (3.8-10.6)
[2024-06-05 21:43] LABS: INR 0.9 (<1.2); Prothrombin Time 10.1 sec (10.0-12.5)
[2024-06-05 21:44] LABS: ALT 46 U/L (4-49); AST 79 U/L (17-59); African American GFR (CKD) >90 (>60 ml/min/1.73 sqM); Albumin 4.9 g/dL (3.5-5.0); Alkaline Phosphatase 84 U/L (38-126); Anion Gap 14 mmol/L; Blood Urea Nitrogen 14 mg/dL (9-20); Calcium 9.3 mg/dL (8.4-10.2); Carbon Dioxide 28 mmol/L (22-30); Chloride 101 mmol/L (98-107); Glucose 149 mg/dL (74-99); Lipase 653 U/L (23-300); Non-African American GFR(CKD) >90 (>60 ml/min/1.73 sqM); Phosphorus 2.1 mg/dL (2.5-4.5); Potassium 4.3 mmol/L (3.5-5.1); Sodium 143 mmol/L (137-145); Total Bilirubin 0.5 mg/dL (0.2-1.3); Total Protein 8.4 g/dL (6.3-8.2)
[2024-06-05] MEDS ORDERED: NALOXONE 0.4 MG/ML 1 ML VIAL IV PRN (21:44)
[2024-06-05] MEDS ORDERED: ONDANSETRON 4 MG/2 ML VIAL IVP PRN (21:44)
[2024-06-05 21:53] LABS: Alcohol 293 mg/dL
[2024-06-05] MEDS: SODIUM CHLORIDE 0.9% 1,000 ML IV SCH (22:02)
[2024-06-05] MEDS: PANTOPRAZOLE 40 MG/10 ML VIAL IV SCH (22:04)
[2024-06-06] MEDS: LORazepam 2 MG/ML INJ IV PRN ×2 (01:15→10:01)
[2024-06-06] MEDS: ONDANSETRON 4 MG/2 ML VIAL IVP STA (01:16)
[2024-06-06 08:55] LABS: Basophils # (A) 0.1 k/uL (0-0.2); Basophils % (A) 1 %; Eosinophils # (A) 0.1 k/uL (0-0.7); Eosinophils % (A) 1 %; HCT 42.2 % (39.0-53.0); HGB 13.9 gm/dL (13.0-17.5); Lymphocytes # (A) 1.7 k/uL (1.0-4.8); Lymphocytes % (A) 27 %; MCH 28.2 pg (25.0-35.0); MCV 85.6 fL (80.0-100.0); Mean Platelet Volume 7.8; Monocytes # (A) 0.5 k/uL (0-1.0); Monocytes % (A) 8 %; Neutrophils # (A) 3.8 k/uL (1.3-7.7); Neutrophils % (A) 60 %; Platelet Count 235 k/uL (150-450); RBC 4.93 m/uL (4.30-5.90); RDW 12.7 % (11.5-15.5); WBC 6.3 k/uL (3.8-10.6)
[2024-06-06 09:16] LABS: ALT 38 U/L (4-49); AST 61 U/L (17-59); African American GFR (CKD) >90 (>60 ml/min/1.73 sqM); Alkaline Phosphatase 63 U/L (38-126); Anion Gap 11 mmol/L; Blood Urea Nitrogen 9 mg/dL (9-20); Calcium 8.2 mg/dL (8.4-10.2); Carbon Dioxide 26 mmol/L (22-30); Chloride 101 mmol/L (98-107); Glucose 89 mg/dL (74-99); Magnesium 1.5 mg/dL (1.6-2.3); Non-African American GFR(CKD) >90 (>60 ml/min/1.73 sqM); Phosphorus 2.6 mg/dL (2.5-4.5); Potassium 3.9 mmol/L (3.5-5.1); Sodium 138 mmol/L (137-145); Total Bilirubin 0.6 mg/dL (0.2-1.3); Total Protein 6.8 g/dL (6.3-8.2)
[2024-06-06 10:37] LABS: Appearance,Urine Clear (Clear); Bilirubin,Urine Negative (Negative); Blood,Urine Negative (Negative); Color,Urine Light Yellow; Glucose,Urine (UA) Negative (Negative); Ketones,Urine Negative (Negative); Leukocyte Esterase,Urine Negative (Negative); Nitrite,Urine Negative (Negative); Protein,Urine Trace (Negative); Urobilinogen,Urine <2.0 mg/dL (<2.0)
[2024-06-06 10:55] LABS: Amphetamine Screen,Urine Not Detected (NotDetected); Barbiturate Screen,Urine Not Detected (NotDetected); Benzodiazepines Screen,Urine Detected (NotDetected); Cocaine Screen,Urine Not Detected (NotDetected); Methadone Screen, Urine Not Detected (NotDetected); Opiate Screen,Urine Not Detected (NotDetected); Oxycodone Screen, Urine Not Detected (NotDetected); Phencyclidine Screen,Urine Not Detected (NotDetected); Tricyclic Antidepressant,Urine Not Detected (NotDetected); Urn Cannabinoid Scrn Detected (NotDetected)
--- NOTE | 2024-06-06 12:13 | P.HPIM ---
History of Present Illness H&P Date: 06/06/24 This is a 28-year-old male with past medical history significant for alcohol abuse, depression, anxiety, presented to the ER, acutely intoxicated, with tremor, anxiety and nausea. Reports he started drinking heavily last week- has been drinking 1/5 daily, last drink , last night. Denies suicidal /homicidal ideation. Reports chronic left shoulder pain for greater than 6 months. Positive nausea, vomiting, diarrhea and abdominal pain. Lipase 653, AST 61. Magnesium 2. vital signs stable, maintaining O2 sats in the high 90s on room air. CBC unremarkable. Denies chest pain, palpitations or shortness of breath. Review of Systems All systems: negative Constitutional: Reports malaise, Denies chills, Denies fever Eyes: denies blurred vision, denies pain Ears, nose, mouth and throat: Reports headache, Denies sore throat Cardiovascular: Denies chest pain, Denies shortness of breath Respiratory: Denies cough Gastrointestinal: Reports abdominal pain, reports nausea,vomiting and diarrhea Musculoskeletal: Denies myalgias. Integumentary: Denies pruritus, Denies rash Neurological: Denies numbness, Denies weakness Psychiatric: Denies anxiety, Denies depression, denies suicidal ideation Endocrine: Denies fatigue, Denies weight change Past Medical History Past Medical History: GERD/Reflux Additional Past Medical History / Comment(s): ETOH abuse with withdrawals (tremors/abdominal pain), past elevated LFTs, History of Any Multi-Drug Resistant Organisms: None Reported Past Surgical History: Hernia Repair, Orthopedic Surgery Additional Past Surgical History / Comment(s): right arm surgery for severed nerve, hernia repair as a child, undescended testicle as a child Past Anesthesia/Blood Transfusion Reactions: No Reported Reaction Past Psychological History: Anxiety, Depression Smoking Status: Never smoker Past Alcohol Use History: Abuse, Daily, Heavy Past Drug Use History: Marijuana - Past Family History Mother Family Medical History: Diabetes Mellitus Additional Family Medical History / Comment(s): family history on maternal side of diabetes Father Additional Family Medical History / Comment(s): Pt has never met his father but knows that he is an alcoholic and agoraphobic. Medications and Allergies Home Medications Medication Instructions Recorded Confirmed Type Viloxazine HCl [Qelbree] 200 mg PO DAILY 06/06/24 06/06/24 History lisinopriL [Prinivil] 10 mg PO DAILY 06/06/24 06/06/24 History Allergies Allergy/AdvReac Type Severity Reaction Status Date / Time cat dander Allergy Rash/Hives Verified 06/06/24 08:16 Physical Exam Vitals: Vital Signs Temp Pulse Resp BP Pulse Ox 06/06/24 07:43 92 18 119/75 96 06/06/24 06:55 102 H 18 127/93 98 06/06/24 04:53 98.2 F 103 H 14 117/75 97 06/06/24 01:11 104 H 18 113/84 94 L 06/05/24 22:11 88 18 158/98 96 06/05/24 20:10 97.9 F 112 H 18 137/85 98 Intake and Output 06/05/24 06/06/24 06/06/24 22:59 06:59 14:59 Other: Weight 90.718 kg Gen: well developed well nourished male in NAD HEENT: NC/AT, mmm CV: RRR, no murmur Lungs: normal effort, clear throughout Abd: soft, epigastric tenderness Skin: warm and dry Results CBC & Chem 7: 06/06/24 08:39 06/06/24 08:39 Labs: Abnormal Lab Results - Last 24 Hours (Table) 06/05/24 06/06/24 Range/Units 21:25 08:39 Glucose 149 H (74-99) mg/dL Calcium 8.2 L (8.4-10.2) mg/dL Phosphorus 2.1 L (2.5-4.5) mg/dL Magnesium 1.5 L (1.6-2.3) mg/dL AST 79 H 61 H (17-59) U/L Total Protein 8.4 H (6.3-8.2) g/dL Lipase 653 H (23-300) U/L Serum Alcohol 293 H* mg/dL Assessment and Plan Assessment: Alcohol intoxication, acute pancreatitis, secondary to the above Abdominal pain Alcohol abuse Cannabis use disorder Major depressive disorder Anxiety disorder Plan: Continue on current medication regimen, monitoring and symptomatic treatment. IV fluid hydration, PPI, CIWA protocol.Alcohol cessation counseling. The impression and plan of care has been dictated as directed. : I performed a history and examination of this patient, discussed the same with the dictator. I agree with the dictator's note ,documented as a scribe. Any additional findings or plans will be noted.
--- NOTE | 2024-06-06 13:35 | P.CN ---
Psychiatric Consult - . Consult date: 06/06/24 Consult:: 06/06/24 13:26 IDENTIFYING DATA: This patient is a 29-year-old male, unemployed and living at home with family REASON FOR REFERRAL: Psychiatry was consulted for "psych" HISTORY OF PRESENT ILLNESS: The patient presented to the hospital with alcohol withdrawal symptoms. Reportedly has been drinking 1/5 a day and last drink was on the day of admit. Alcohol level was elevated at 293, lipase elevated at 653, AST downtrending from 79-61. He was started on CIWA protocol with Ativan. Patient seen and evaluated in his room. He reports some mild withdrawal symptoms described as headache, dizziness and belly pain. CIWA has been up to 10, last receiving Ativan at 10 AM. He corroborates that he has been drinking 1/5 of hard liquor for the past 10 days however he has been dealing with a substance use issue since the age of 22. He states at that time receiving some "bad dope" in the mail that he ordered online and was experiencing difficulties and began drinking to cope however this has been persistent. He denies any past DUIs but did report 1 short rehab stay for just 1 day. He denies any history of seizures from withdrawing. He appears precontemplative as he does not want to go to rehab despite encouragement however was still give patient resources for substance use treatment in this area. He denied any cravings. He reports some appetite changes and anhedonia but denied any hopelessness, low energy or sleep disturbance. At this time patient denies any suicidal or homical ideations, intent or plan. He sees Dr. Tyler at [facility] for ADHD and is currently on qelbree with no former diagnosis of depression or anxiety. Patient denies any auditory, visual hallucinations and denies any paranoia or delusions. He does describe hearing voices whenever he drinks however denied any currently. PAST PSYCHIATRIC HISTORY: Patient has a history of ADHD. Patient is only on qelbree 200 mg daily. He reports 1 previous inpatient hospitalization roughly 4 years ago[address] He sees Dr. Tyler at [facility]. Patient denies any history of suicide attempts in the past. PAST MEDICAL HISTORY: GERD ALLERGIES: as per EMR. CHEMICAL DEPENDENCY HISTORY: as per HPI. FAMILY PSYCHIATRIC/SUBSTANCE USE HISTORY: Patient states mental health runs on his father side of the family. SOCIAL HISTORY: Patient is single and has no children. He has a GED however is currently unemployed, living with mom and brother. MENTAL STATUS EXAM: General Appearance: Patient appears to be stated age is alert, pleasant, and cooperative. Patient appears to have fair hygiene and grooming wearing hospital gown with fair eye contact. Behavior: Patient is calmly lying in bed without any agitated behavior. Speech: Patient's speech is fluent and nonpressured. Mood/Affect: Patient reports their mood is "all right", affect is congruent, flat Suicidality/Homicidality: Patient denies having any suicidal or homicidal ideation intent or plan. Perceptions: Patient denies any visual hallucinations and denies any auditory hallucinations Though content/process: There is no evidence of any delusional thought content and thought process is linear. Memory and concentration: AOX3, grossly intact for the purposes of this session. Can spell "WORLD" backwards Judgment and insight: Poor IMPRESSIONS: Alcohol use disorder, severe in withdrawal History of ADHD Opioid use disorder, in remission PLAN: -At this time patient DOES NOT meet criteria for inpatient psychiatric admission. -Would recommend the following medication changes/additions: Start naltrexone 50 mg daily for alcohol use, discussed with patient the potential to transition to long-acting injectable for this medication. Patient declined rehab at this time however was strongly encouraged to consider given ongoing substance use issues. Continue multivitamins, thiamine and folic acid -CIWA protocol with PRN Ativan for alcohol withdrawal. Continue to monitor vital signs. -Patient to follow-up with his outpatient psychiatrist at [facility], Dr. Tyler -Financial Sales Assistant spoke with patient about substance abuse and the harmful effects on medical and mental health, patient verbally understood and agreed. -rescue worker to provide patient substance use treatment resources including AA/NA meetings in the community. -Communicated plan to patient's nurse -Psychiatry will sign off at this time -Please contact with any questions.
[2024-06-06] MEDS: FOLIC ACID 1 MG TAB PO SCH (14:08)
[2024-06-06] MEDS: MULTIVITAMINS, THERA 1 EACH TAB PO SCH (14:08)
[2024-06-06] MEDS: THIAMINE 100 MG TAB PO SCH (14:08)
[2024-06-06] MEDS: NALTREXONE HCL 50 MG TAB PO SCH (14:09)
[2024-06-07 06:29] LABS: Basophils % (A) 1 %; Eosinophils # (A) 0.1 k/uL (0-0.7); Eosinophils % (A) 1 %; HGB 14.2 gm/dL (13.0-17.5); Lymphocytes # (A) 1.2 k/uL (1.0-4.8); Lymphocytes % (A) 16 %; MCH 27.2 pg (25.0-35.0); MCHC 32.1 g/dL (31.0-37.0); MCV 84.7 fL (80.0-100.0); Mean Platelet Volume 8.8; Monocytes # (A) 0.5 k/uL (0-1.0); Monocytes % (A) 6 %; Neutrophils # (A) 5.5 k/uL (1.3-7.7); Neutrophils % (A) 74 %; Platelet Count 239 k/uL (150-450); RDW 12.7 % (11.5-15.5); WBC 7.4 k/uL (3.8-10.6)
[2024-06-07 06:48] LABS: African American GFR (CKD) >90 (>60 ml/min/1.73 sqM); Anion Gap 9 mmol/L; Blood Urea Nitrogen 6 mg/dL (9-20); Carbon Dioxide 25 mmol/L (22-30); Chloride 101 mmol/L (98-107); Glucose 85 mg/dL (74-99); Magnesium 1.7 mg/dL (1.6-2.3); Non-African American GFR(CKD) >90 (>60 ml/min/1.73 sqM); Potassium 3.9 mmol/L (3.5-5.1); Sodium 135 mmol/L (137-145)
[2024-06-07] MEDS: PANTOPRAZOLE 40 MG TABLET PO SCH (09:16)
--- NOTE | 2024-06-07 11:07 | P.PN ---
Subjective Progress Note Date: 06/07/24 H&P Date: 06/06/24 This is a 28-year-old male with past medical history significant for alcohol abuse, depression, anxiety, presented to the ER, acutely intoxicated, with tremor, anxiety and nausea. Reports he started drinking heavily last week- has been drinking 1/5 daily, last drink , last night. Denies suicidal /homicidal ideation. Reports chronic left shoulder pain for greater than 6 months. Positive nausea, vomiting, diarrhea and abdominal pain. Lipase 653, AST 61. Magnesium 2. vital signs stable, maintaining O2 sats in the high 90s on room air. CBC unremarkable. Denies chest pain, palpitations or shortness of breath. Alcohol level on admission 293. Toxicology screen detected benzodiazepines and marijuana. 06/07/2019 maintained on IV fluid hydration, CIWA protocol , multivitamins, thiamine and folic acid.CIWA score remains elevated at 8. Repeat lipase p ending. complains of headache, diaphoresis. Positive tremors. Reports nausea, vomiting, hallucinations when his eyes are closed, describing it as a "movie of random people". Evaluated by psychiatry, naltrexone daily initiated. Objective - Vital Signs Vital signs: Vital Signs Temp 97.7 F 06/07/24 07:00 Pulse 69 06/07/24 07:00 Resp 16 06/07/24 07:00 BP 134/88 06/07/24 07:00 Pulse Ox 99 06/07/24 07:00 FiO2 Intake & Output 06/06/24 06/07/24 06/07/24 18:59 06:59 18:59 Weight 90.718 kg Other: Voiding Method Toilet # Voids 3 - Exam Gen: well developed well nourished male in NAD HEENT: NC/AT, mmm CV: RRR, no murmur Lungs: normal effort, clear throughout Abd: soft, decreased epigastric tenderness Skin: warm and dry - Labs CBC & Chem 7: 06/07/24 05:55 06/07/24 05:55 Labs: Abnormal Lab Results - Last 24 Hours (Table) 06/06/24 06/07/24 Range/Units 09:00 05:55 Sodium 135 L (137-145) mmol/L BUN 6 L (9-20) mg/dL U Benzodiazepines Scrn Detected H (NotDetected) U Marijuana (THC) Screen Detected H (NotDetected) Assessment and Plan Assessment: Alcohol intoxication, acute pancreatitis, secondary to the above Abdominal pain Alcohol abuse Cannabis use disorder Major depressive disorder Anxiety disorder Plan: Continue on current medication regimen, monitoring and symptomatic treatm ent. Maintain IV fluid hydration, PPI, CIWA protocol.Alcohol cessation counseling. Discharge planning in progress once CIWA score less than 5. The impression and plan of care has been dictated as directed. : I performed a history and examination of this patient, discussed the same with the dictator. I agree with the dictator's note ,documented as a scribe. Any additional findings or plans will be noted.
[2024-06-07] MEDS: LORazepam 1 MG TAB PO PRN (16:43)
[2024-06-08 09:03] VITALS: BP 149/82; PULSE 71; RESP 18; TEMP 98.2
--- NOTE | 2024-06-12 09:47 | P.DS ---
Providers Date of admission: 06/05/24 21:45 Expected date of discharge: 06/08/24 Attending physician: Shay Tom MD Consults: 06/05/24 21:45 Consult Physician Routine Consulting Provider: Psychiatry - [facility] Psychiatry Consult Reason/Comments: psych Do you want consulting provider notified?: Already Contacted Primary care physician: Shay Tom MD Hospital Course: Final diagnosis Alcohol intoxication acute pancreatitis, secondary to the above Abdominal pain Alcohol abuse Cannabis use disorder Major depressive disorder Anxiety disorder Discharge disposition Patient has left AGAINST MEDICAL ADVICE. Patient will follow-up with Dr. Tom in the outpatient setting upon discharge. Strongly recommend inpatient alcohol rehab. Total time taken is greater than 35 minutes. Hospital course This is a 29-year-old male who was recently admitted EtOH withdrawal being closely monitored on CIWA protocol. Patient being closely monitored reporting to feeling better and wanting to leave. Patient keen on going home and persisted to leave AGAINST MEDICAL ADVICE. Risks versus benefits including were explained and paper signed. Please refer to documentation for further HPI. Per nursing, patient was alert and oriented x 3 with a steady gait. Currently no reports of chest pain, shortness of breath, or palpitations. Patient is afebrile. No reports of nausea or vomiting and patient is tolerating diet. Patient has left AGAINST MEDICAL ADVICE Please refer to medication reconciliation sheet for a list of medications. The impression and plan of care has been dictated by Cristine Teixeira, Nurse Practitioner as directed. Dr. Paul MD I have performed a history and examination and MDM of this patient, discussed the same with the dictator, and agree with the dictator's assessment and plan as written ,documented as a scribe. Based on total visit time, I have performed more than 50% of the visit. Patient Condition at Discharge: Fair Plan - Discharge Summary New Discharge Prescriptions: New Folic Acid 1 mg PO DAILY tab Multivitamins, Thera [Multivitamin (formulary)] 1 each PO DAILY tab Thiamine [Vitamin B-1] 100 mg PO DAILY tab Continue lisinopriL [Prinivil] 10 mg PO DAILY Viloxazine HCl [Qelbree] 200 mg PO DAILY Discharge Medication List Viloxazine HCl [Qelbree] 200 mg PO DAILY 06/06/24 [History] lisinopriL [Prinivil] 10 mg PO DAILY 06/06/24 [History] Folic Acid 1 mg PO DAILY tab 06/07/24 [Rx] Multivitamins, Thera [Multivitamin (formulary)] 1 each PO DAILY tab 06/07/24 [Rx] Thiamine [Vitamin B-1] 100 mg PO DAILY tab 06/07/24 [Rx] Follow up Appointment(s)/Referral(s): Shay Tom MD [Primary Care Provider] - 1 Week Discharge/Stand Alone Forms: AA Meetings [place], [facility], Outpatient Counseling Discharge Disposition: LEFT AGAINST MEDICAL ADVICE
== END 2024-06-08 09:45 | disposition left against medical advice (07) ==
LOC: EC 19:54 → 6NMEDSUR 21:45 → 1SOBS 06-06 18:54
PROVIDERS: ADMIT Family Medicine; ATTEND Family Medicine
DX: F10.229 Alcohol dependence with intoxication, unspecified (principal); F10.239 Alcohol dependence with withdrawal, unspecified; K85.90 Acute pancreatitis without necrosis or infection, unspecified; F32.9 Major depressive disorder, single episode, unspecified; K21.9 Gastro-esophageal reflux disease without esophagitis; F41.9 Anxiety disorder, unspecified; F11.11 Opioid abuse, in remission; F12.10 Cannabis abuse, uncomplicated; Y90.8 Blood alcohol level of 240 mg/100 ml or more; Z56.0 Unemployment, unspecified; Z79.899 Other long term (current) drug therapy; Z53.29 Procedure and treatment not carried out because of patient's decision for other reasons
CPT/HCPCS: 96376 ×4; 96361; 96374; 96375 ×2; 99285; 36415; 80053 ×2; 80048; 83690 ×2; 83735 ×3; 84100 ×2; 85025 ×3; 85610; 81003; 80306; G0378 ×4; G0480; J2060 ×4; J2405; J2470 ×2; 80320

== ENCOUNTER 2024-08-22 19:52 | Observation (INO) | payer OTHER ==
--- NOTE | 2024-08-22 19:58 | ED ---
General Adult HPI - General Stated complaint: ETOH Withdrawls Time Seen by Provider: 08/22/24 19:56 Source: patient, RN notes reviewed Mode of arrival: ambulatory Limitations: no limitations - History of Present Illness Initial comments: 29-year-old male presents emergency department complaint of alcohol withdrawal. Patient states he normally drinks 1/5 of vodka daily but states have recent he has been drinking more than that. He states he is trying to stop drinking he has not had a drink and what he believes is 6 hours. Patient states that he is starting to have severe withdrawal symptoms. Patient states he is unsure if he is ever had a seizure is gone rehab the past for 1 day and signed himself out. Patient does admit to nausea vomiting shakes denies any hallucinations at this time. - Related Data Home Medications Medication Instructions Recorded Confirmed No Known Home Medications 08/22/24 08/22/24 Allergies Allergy/AdvReac Type Severity Reaction Status Date / Time cat dander Allergy Rash/Hives Verified 08/22/24 20:36 Review of Systems ROS Statement: Those systems with pertinent positive or pertinent negative responses have been documented in the HPI. ROS Other: All systems not noted in ROS Statement are negative. Past Medical History Past Medical History: GERD/Reflux Additional Past Medical History / Comment(s): ETOH abuse with withdrawals (t remors/abdominal pain), past elevated LFTs, History of Any Multi-Drug Resistant Organisms: None Reported Past Surgical History: Hernia Repair, Orthopedic Surgery Additional Past Surgical History / Comment(s): right arm surgery for severed nerve, hernia repair as a child, undescended testicle as a child Past Anesthesia/Blood Transfusion Reactions: No Reported Reaction Past Psychological History: Anxiety, Depression Smoking Status: Never smoker Past Alcohol Use History: Abuse, Daily, Heavy Past Drug Use History: Marijuana - Past Family History Mother Family Medical History: Diabetes Mellitus Additional Family Medical History / Comment(s): family history on maternal side of diabetes Father Additional Family Medical History / Comment(s): Pt has never met his father but knows that he is an alcoholic and agoraphobic. General Exam Limitations: no limitations General appearance: alert, in no apparent distress Head exam: Present: atraumatic, normocephalic, normal inspection Respiratory exam: Present: normal lung sounds bilaterally. Absent: respiratory distress, wheezes, rales, rhonchi, stridor Cardiovascular Exam: Present: regular rate, normal rhythm, normal heart sounds. Absent: systolic murmur, diastolic murmur, rubs, gallop, clicks GI/Abdominal exam: Present: soft, tenderness, normal bowel sounds. Absent: distended, guarding, rebound, rigid Back exam: Absent: CVA tenderness (R), CVA tenderness (L) Neurological exam: Present: alert, oriented X3 Course Vital Signs 08/22/24 08/22/24 19:55 20:53 Temperature 98.3 F Pulse Rate 139 H 94 Respiratory 18 16 Rate Blood Pressure 147/103 127/87 O2 Sat by Pulse 96 98 Oximetry Medical Decision Making - Medical Decision Making Was pt. sent in by a medical professional or institution (, PA, DATASTAGE DEVELOPER, urgent care, hospital, or residential...) When possible be specific @ -No Did you speak to anyone other than the patient for history (EMS, parent, family, police, friend...)? What history was obtained from this source @ -No Did you review nursing and triage notes (agree or disagree)? Why? @ -I reviewed and agree with nursing and triage notes Were old charts reviewed (outside hosp., previous admission, EMS record, old EKG, old radiological studies, urgent care reports/EKG's, residential records)? Report findings @ -No old charts were reviewed Differential Diagnosis (chest pain, altered mental status, abdominal pain women, abdominal pain men, vaginal bleeding, weakness, fever, dyspnea, syncope, headache, dizziness, GI bleed, back pain, seizure, CVA, palpatations, mental health, musculoskeletal)? @ -Differential Abdominal Pain Men: Appendicitis, cholecystitis, diverticulosis, ischemic bowel, pancreatitis, hepatitis, UTI, gastroenteritis, AAA, incarcerated hernia, bowel obstruction, constipation, inflammatory bowel, hepatitis, peptic ulcer disease, splenic infarction, perforated viscus, testicular torsion, this is not meant to be an all-inclusive list EKG interpreted by me (3pts min.). @ -As above X-rays interpreted by me (1pt min.). @ -None done CT interpreted by me (1pt min.). @ -None done U/S interpreted by me (1pt. min.). @ -None done What testing was considered but not performed or refused? (CT, X-rays, U/S, labs)? Why? @ -None What meds were considered but not given or refused? Why? @ -None Did you discuss the management of the patient with other professionals (professionals i.e. , PA, DATASTAGE DEVELOPER, lab, RT, psych nurse, social economist, heel finisher, teacher, residential care officer, correctional casework specialist)? Give summary @ -EMH for admission Was smoking cessation discussed for >3mins.? @ -No Was critical care preformed (if so, how long)? @ -No Were there social determinants of health that impacted care today? How? (Homelessness, low income, unemployed, alcoholism, drug addiction, tr ansportation, low edu. Level, literacy, decrease access to med. care, detention, rehab)? @ -No Was there de-escalation of care discussed even if they declined (Discuss DNR or withdrawal of care, Hospice)? DNR status @ -No What co-morbidities impacted this encounter? (DM, HTN, Smoking, COPD, CAD, Cancer, CVA, ARF, Chemo, Hep., AIDS, mental health diagnosis, sleep apnea, morbid obesity)? @ -Alcohol abuse Was patient admitted / discharged? Hospital course, mention meds given and route, prescriptions, significant lab abnormalities, going to OR and other pertinent info. @ -Admitted patient presented for alcohol withdrawal. Patient vomiting acutely intoxicated patient does have moderate withdrawal symptoms. Patient alcohol withdrawal, CIWA, Ativan. Undiagnosed new problem with uncertain prognosis? @ -No Drug Therapy requiring intensive monitoring for toxicity (Heparin, Nitro, Insulin, Cardizem)? @ -No Were any procedures done? @ -No Diagnosis/symptom? @ -Withdrawal abuse intoxication Acute, or Chronic, or Acute on Chronic? @ -Acute Uncomplicated (without systemic symptoms) or Complicated (systemic symptoms)? @ -Complicated Side effects of treatment? @ -No Exacerbation, Progression, or Severe Exacerbation? @ -No Poses a threat to life or bodily function? How? (Chest pain, [place], [place], pneumonia, PE, COPD, DKA, ARF, appy, cholecystitis, CVA, Diverticulitis, Homicidal, Suicidal, threat to staff... and all critical care pts) @ -No - Lab Data Result diagrams: 08/22/24 20:13 08/22/24 20:13 Lab Results 04/01/0808/22/24 08/22/24 Range/Units 20:13 20:13 20:13 WBC 8.29 (4.50-10.00) 10*3/uL RBC 5.81 H (4.40-5.60) 10*6/uL Hgb 16.3 (13.0-17.0) g/dL Hct 47.4 (39.6-50.0) % MCV 81.6 (80.0-97.0) fL MCH 28.1 (27.0-32.0) pg MCHC 34.4 (32.0-37.0) g/dL Plt Count 248 (140-440) 10*3/uL MPV 11.8 (9.5-12.2) fL Immature Gran % (Auto) 0.2 % Neutrophils % 66.6 % Lymphocytes % 22.3 % Monocytes % 9.4 % Eosinophils % 0.7 % Basophils % 0.8 % Immature Gran # 0.02 (0.00-0.04) 10*3/uL Neutrophils # 5.51 (1.80-7.70) 10*3/uL Lymphocytes # 1.85 (0.90-5.00) 10*3/uL Monocytes # 0.78 (0.20-1.00) 10*3/uL Eosinophils # 0.06 (0.04-0.35) 10*3/uL Basophils # 0.07 (0.00-0.10) 10*3/uL Manual Slide Review Performed Sodium 141 (137-145) mmol/L Potassium 3.9 (3.5-5.1) mmol/L Chloride 97 L (98-107) mmol/L Carbon Dioxide 22 (22-30) mmol/L Anion Gap 22 mmol/L BUN 6 L (9-20) mg/dL Creatinine 0.83 (0.66-1.25) mg/dL Est GFR (CKD-EPI)AfAm >90 (>60 ml/min/1.73 sqM) Est GFR (CKD-EPI)NonAf >90 (>60 ml/min/1.73 sqM) Glucose 124 H (74-99) mg/dL Plasma Lactic Acid Corona 4.7 H* (0.7-2.0) mmol/L Calcium 8.9 (8.4-10.2) mg/dL Magnesium 1.7 (1.6-2.3) mg/dL Total Bilirubin 1.0 (0.2-1.3) mg/dL AST 267 H (17-59) U/L ALT 172 H (4-49) U/L Alkaline Phosphatase 130 H (38-126) U/L Total Protein 8.3 H (6.3-8.2) g/dL Albumin 4.9 (3.5-5.0) g/dL Amylase 144 H (30-110) U/L Lipase 191 (23-300) U/L Urine Color Urine Appearance (Clear) Urine pH (5.0-8.0) Ur Specific Downey (1.001-1.035) Urine Protein (Negative) Urine Glucose (UA) (Negative) Urine Ketones (Negative) Urine Blood (Negative) Urine Nitrite (Negative) Urine Bilirubin (Negative) Urine Urobilinogen (<2.0) mg/dL Ur Leukocyte Esterase (Negative) Urine RBC (0-5) /hpf Urine WBC (0-5) /hpf Amorphous Sediment (None) /hpf Urine Mucus (None) /hpf Serum Alcohol 281 H* mg/dL 08/22/24 Range/Units 21:02 WBC (4.50-10.00) 10*3/uL RBC (4.40-5.60) 10*6/uL Hgb (13.0-17.0) g/dL Hct (39.6-50.0) % MCV (80.0-97.0) fL MCH (27.0-32.0) pg MCHC (32.0-37.0) g/dL Plt Count (140-440) 10*3/uL MPV (9.5-12.2) fL Immature Gran % (Auto) % Neutrophils % % Lymphocytes % % Monocytes % % Eosinophils % % Basophils % % Immature Gran # (0.00-0.04) 10*3/uL Neutrophils # (1.80-7.70) 10*3/uL Lymphocytes # (0.90-5.00) 10*3/uL Monocytes # (0.20-1.00) 10*3/uL Eosinophils # (0.04-0.35) 10*3/uL Basophils # (0.00-0.10) 10*3/uL Manual Slide Review Sodium (137-145) mmol/L Potassium (3.5-5.1) mmol/L Chloride (98-107) mmol/L Carbon Dioxide (22-30) mmol/L Anion Gap mmol/L BUN (9-20) mg/dL Creatinine (0.66-1.25) mg/dL Est GFR (CKD-EPI)AfAm (>60 ml/min/1.73 sqM) Est GFR (CKD-EPI)NonAf (>60 ml/min/1.73 sqM) Glucose (74-99) mg/dL Plasma Lactic Acid Corona (0.7-2.0) mmol/L Calcium (8.4-10.2) mg/dL Magnesium (1.6-2.3) mg/dL Total Bilirubin (0.2-1.3) mg/dL AST (17-59) U/L ALT (4-49) U/L Alkaline Phosphatase (38-126) U/L Total Protein (6.3-8.2) g/dL Albumin (3.5-5.0) g/dL Amylase (30-110) U/L Lipase (23-300) U/L Urine Color Yellow Urine Appearance Cloudy (Clear) Urine pH 6.5 (5.0-8.0) Ur Specific Downey 1.018 (1.001-1.035) Urine Protein 1+ H (Negative) Urine Glucose (UA) Negative (Negative) Urine Ketones 1+ H (Negative) Urine Blood Negative (Negative) Urine Nitrite Negative (Negative) Urine Bilirubin Negative (Negative) Urine Urobilinogen <2.0 (<2.0) mg/dL Ur Leukocyte Esterase Negative (Negative) Urine RBC <1 (0-5) /hpf Urine WBC 3 (0-5) /hpf Amorphous Sediment Rare H (None) /hpf Urine Mucus Many H (None) /hpf Serum Alcohol mg/dL Disposition Clinical Impression: Alcohol intoxication, Alcohol withdrawal delirium, Alcohol use disorder Disposition: ADMITTED IP TO THIS HOSP Condition: Poor Referrals: Shay Tom MD [Primary Care Provider] - 1-2 days Time of Disposition: 22:23
[2024-08-22] MEDS: SODIUM CHLORIDE 0.9% 1,000 ML IV SCH (20:31)
[2024-08-22 20:32] LABS: Basophils # (A) 0.07 10*3/uL (0.00-0.10); Basophils % (A) 0.8 %; Eosinophils # (A) 0.06 10*3/uL (0.04-0.35); Eosinophils % (A) 0.7 %; HCT 47.4 % (39.6-50.0); HGB 16.3 g/dL (13.0-17.0); Lymphocytes # (A) 1.85 10*3/uL (0.90-5.00); Lymphocytes % (A) 22.3 %; MCH 28.1 pg (27.0-32.0); MCHC 34.4 g/dL (32.0-37.0); MCV 81.6 fL (80.0-97.0); Mean Platelet Volume 11.8 fL (9.5-12.2); Monocytes # (A) 0.78 10*3/uL (0.20-1.00); Monocytes % (A) 9.4 %; Neutrophils # (A) 5.51 10*3/uL (1.80-7.70); Neutrophils % (A) 66.6 %; Platelet Count 248 10*3/uL (140-440); RBC 5.81 10*6/uL (4.40-5.60); RDW 14.6 % (11.5-14.5); WBC 8.29 10*3/uL (4.50-10.00)
[2024-08-22] MEDS: ONDANSETRON 4 MG/2 ML VIAL IVP STA (20:34)
[2024-08-22 20:46] LABS: ALT 172 U/L (4-49); African American GFR (CKD) >90 (>60 ml/min/1.73 sqM); Albumin 4.9 g/dL (3.5-5.0); Amylase 144 U/L (30-110); Anion Gap 22 mmol/L; Blood Urea Nitrogen 6 mg/dL (9-20); Calcium 8.9 mg/dL (8.4-10.2); Carbon Dioxide 22 mmol/L (22-30); Chloride 97 mmol/L (98-107); Glucose 124 mg/dL (74-99); Lipase 191 U/L (23-300); Magnesium 1.7 mg/dL (1.6-2.3); Non-African American GFR(CKD) >90 (>60 ml/min/1.73 sqM); Sodium 141 mmol/L (137-145); Total Protein 8.3 g/dL (6.3-8.2)
[2024-08-22 20:47] LABS: AST 267 U/L (17-59); Alcohol 281 mg/dL; Alkaline Phosphatase 130 U/L (38-126); Potassium 3.9 mmol/L (3.5-5.1)
[2024-08-22 21:16] LABS: Amorphous Sediment,Urine Rare /hpf; Appearance,Urine Cloudy (Clear); Bilirubin,Urine Negative (Negative); Blood,Urine Negative (Negative); Color,Urine Yellow; Glucose,Urine (UA) Negative (Negative); Ketones,Urine 1+ (Negative); Leukocyte Esterase,Urine Negative (Negative); Mucus,Urine Many /hpf; Nitrite,Urine Negative (Negative); PH, Urine 6.5 (5.0-8.0); Protein,Urine 1+ (Negative); RBC,Urine <1 /hpf (0-5); Specific Gravity,Urine 1.018 (1.001-1.035); Urobilinogen,Urine <2.0 mg/dL (<2.0); WBC,Urine 3 /hpf (0-5)
[2024-08-22] MEDS ORDERED: LORazepam 1 MG TAB PO PRN (22:20)
[2024-08-22] MEDS ORDERED: LORazepam 2 MG/ML INJ IV PRN (22:20)
[2024-08-22] MEDS ORDERED: LORazepam 0.5 MG TAB PO PRN (22:20)
[2024-08-22] MEDS ORDERED: NALOXONE 0.4 MG/ML 1 ML VIAL IV PRN (22:21)
[2024-08-22] MEDS: LORazepam 2 MG/ML INJ IV PRN (22:53)
[2024-08-23] MEDS: SODIUM CHLORIDE 0.9% 1,000 ML IV ONE (00:08)
[2024-08-23] MEDS: SODIUM CHLORIDE 0.9% 1,000 ML IV SCH (01:08)
[2024-08-23] MEDS: SODIUM CHLORIDE 0.9% 500 ML 500 ML IV ONE ×2 (01:48→03:11)
[2024-08-23] MEDS: LORazepam 2 MG/ML INJ IV PRN (02:02)
[2024-08-23] MEDS ORDERED: LORazepam 1 MG/0.5 ML VIAL IV PRN (04:06)
[2024-08-23] MEDS: LORazepam 1 MG/0.5 ML VIAL IV PRN ×2 (04:17→16:15)
[2024-08-23] MEDS: PANTOPRAZOLE 40 MG/10 ML VIAL IV SCH (07:48)
[2024-08-23] MEDS: THIAMINE 100 MG TAB PO SCH (07:49)
[2024-08-23 15:52] VITALS: BMI 25.1
--- NOTE | 2024-08-24 01:27 | HP ---
HISTORY AND PHYSICAL CHIEF COMPLAINT: Alcohol withdrawal and intoxication. HISTORY OF PRESENT ILLNESS: This is a 29-year-old gentleman with a past medical history of multiple problems, admitted with alcohol withdrawal, intoxication. The patient had early features of early delirium tremens. Alcohol level was found to be 281. There is no history of fever, rigors, or chills at this time. PAST MEDICAL HISTORY: Reviewed include GERD and EtOH. Rest of the history and rest of the chart are also reviewed. HOME MEDICATIONS: None. ALLERGIES: Cat dander. FAMILY HISTORY: History of diabetes mellitus in the family. SOCIAL HISTORY: No history of smoking or alcohol. REVIEW OF SYSTEMS: Fourteen-point review of systems negative except as mentioned earlier. PHYSICAL EXAMINATION: VITAL SIGNS: Pulse is 78, blood pressure 130/89, and respirations 16. HEENT: Conjunctivae normal. NECK: No JVD. CARDIOVASCULAR: S1, S2. RESPIRATIONS: Breath sounds diminished at the bases. ABDOMEN: Soft. LEGS: No edema. NERVOUS SYSTEM: Mild diffuse tremors. LABORATORY DATA: CBC within normal. Rest of labs are noted. ASSESSMENT: 1. Acute alcohol intoxication. 2. Early acute delirium tremens. 3. Alcoholic hepatitis. 4. History of gastroesophageal reflux disease. 5. History of hernia repair. 6. Anxiety, depression. RECOMMENDATIONS AND DISCUSSION: This is a 29-year-old gentleman, presented with multiple complex medical issues. We will monitor the patient closely. CIWA protocol. Supplement vitamins. Monitor blood pressure closely. Otherwise, recommend social work evaluation and arrange outpatient alcohol rehab. Prognosis guarded. Further recommendations to follow. MMODL / IJN: [id number] /
[2024-08-24] MEDS: ONDANSETRON 4 MG/2 ML VIAL IVP PRN (05:30)
[2024-08-24] MEDS: PANTOPRAZOLE 40 MG TABLET PO SCH (08:27)
[2024-08-24 08:35] LABS: HGB 14.2 g/dL (13.0-17.0); MCH 27.5 pg (27.0-32.0); MCHC 31.6 g/dL (32.0-37.0); RBC 5.17 X 10*6/uL (4.40-5.60); RDW 14.9 % (11.5-14.5); WBC 5.07 X 10*3/uL (4.50-10.00)
[2024-08-24 08:36] LABS: Basophils # (A) 0.04 X 10*3/uL (0.00-0.10); Basophils % (A) 0.8 %; Eosinophils # (A) 0.04 X 10*3/uL (0.04-0.35); Eosinophils % (A) 0.8 %; Lymphocytes # (A) 1.01 X 10*3/uL (0.90-5.00); Lymphocytes % (A) 19.9 %; Mean Platelet Volume 12.3 FL (9.5-12.2); Monocytes # (A) 0.72 X 10*3/uL (0.20-1.00); Monocytes % (A) 14.2 %; NRBC Per 100 WBC 0 X 10*3/uL (0.00-0.01); Neutrophils # (A) 3.24 X 10*3/uL (1.80-7.70); Neutrophils % (A) 63.9 %; Platelet Count 185 X 10*3/uL (140-440)
[2024-08-24 08:50] LABS: ALT 117 U/L (10-49); AST 103 U/L (14-35); Albumin/Globulin Ratio 1.54 Ratio (1.60-3.17); Alkaline Phosphatase 124 U/L (41-126); BUN/Creat Ratio 3.89 Ratio (12.00-20.00); Blood Urea Nitrogen 3.5 mg/dL (9.0-27.0); Calcium 8.8 mg/dL (8.7-10.3); Carbon Dioxide 28.4 mmol/L (21.6-31.8); Chloride 102 mmol/L (96-109); Globulin 2.6 g/dL (1.6-3.3); Glucose 96 mg/dL (70-110); Potassium 3.8 mmol/L (3.5-5.5); Sodium 138 mmol/L (135-145); Total Protein 6.6 g/dL (6.2-8.2)
[2024-08-24] MEDS: chlordiazePOXIDE 25 MG CAP PO SCH (11:00)
[2024-08-24 14:49] VITALS: BP 151/87; PULSE 80; RESP 17; TEMP 98.7
== END 2024-08-24 15:15 | disposition home or self-care (01) ==
LOC: EC 19:52 → 6NMEDSUR 22:22
PROVIDERS: ADMIT Hospitalist; ATTEND Hospitalist
DX: F10.229 Alcohol dependence with intoxication, unspecified (principal); F10.231 Alcohol dependence with withdrawal delirium; K70.10 Alcoholic hepatitis without ascites; K21.9 Gastro-esophageal reflux disease without esophagitis; F32.A Depression, unspecified; F41.9 Anxiety disorder, unspecified; Y90.8 Blood alcohol level of 240 mg/100 ml or more
CPT/HCPCS: 96376 ×3; 96375 ×2; 82075; 96361 ×2; 96374; 99285; 36415; 80053 ×2; 82150; 83605 ×2; 83690; 83735; 85025 ×2; 81001; G0378 ×3; G0480; J2060 ×3; J2405 ×2; J2470; 80320

== ENCOUNTER 2024-09-17 21:48 | Observation (INO) | payer OTHER ==
[2024-09-17] MEDS ORDERED: LORazepam 2 MG/ML INJ IV PRN ×3 (21:58)
[2024-09-17] MEDS ORDERED: LORazepam 1 MG TAB PO PRN ×2 (21:58)
[2024-09-17] MEDS ORDERED: LORazepam 0.5 MG TAB PO PRN (21:58)
--- NOTE | 2024-09-17 21:59 | ED ---
Alcohol HPI - General Chief Complaint: Alcohol Stated Complaint: alcohol withdrawal Time Seen by Provider: 09/17/24 21:56 Source: patient, RN notes reviewed, old records reviewed Mode of arrival: ambulatory Limitations: no limitations - History of Present Illness Initial Comments: 29-year-old male to the ER for evaluation patient was today for severe alcohol intoxication confirmed for alcohol withdrawal. History of alcohol withdrawal on admission nearly a month ago for alcohol withdrawal MD Complaint: alcohol intoxication, alcohol withdrawal Last Drink: just DAIRY TESTER -: days(s) Previous Visits for Alcohol Intoxication?: Yes Recent Trauma: Yes Associated Symptoms: denies other symptoms Treatments Prior to Arrival: none Chronic Alcohol Use: Yes - Related Data Previous Rx's Medication Instructions Recorded Multivitamins, Thera [Multivitamin 1 each PO DAILY #30 tab 09/19/24 (formulary)] Sertraline [Zoloft] 50 mg PO HS #30 tab 09/19/24 Thiamine [Vitamin B-1] 100 mg PO DAILY #30 tab 09/19/24 Allergies Allergy/AdvReac Type Severity Reaction Status Date / Time cat dander Allergy Rash/Hives Verified 09/18/24 06:56 Review of Systems ROS Statement: Those systems with pertinent positive or pertinent negative responses have been documented in the HPI. ROS Other: All systems not noted in ROS Statement are negative. Past Medical History Past Medical History: GERD/Reflux Additional Past Medical History / Comment(s): ETOH abuse with withdrawals (tremors/abdominal pain), past elevated LFTs, History of Any Multi-Drug Resistant Organisms: None Reported Past Surgical History: Hernia Repair, Orthopedic Surgery Additional Past Surgical History / Comment(s): right arm surgery for severed nerve, hernia repair as a child, undescended testicle as a child Past Anesthesia/Blood Transfusion Reactions: No Reported Reaction Past Psychological History: Anxiety, Depression Smoking Status: Never smoker Past Alcohol Use History: Abuse, Daily, Heavy Past Drug Use History: Marijuana - Past Family History Mother Family Medical History: Diabetes Mellitus Additional Family Medical History / Comment(s): family history on maternal side of diabetes Father Additional Family Medical History / Comment(s): Pt has never met his father but knows that he is an alcoholic and agoraphobic. General Exam Limitations: no limitations General appearance: alert, in no apparent distress Head exam: Present: atraumatic, normocephalic, normal inspection Eye exam: Present: normal appearance, PERRL, EOMI. Absent: scleral icterus, conjunctival injection, periorbital swelling ENT exam: Present: normal exam, mucous membranes moist Neck exam: Present: normal inspection. Absent: tenderness, meningismus, lymphadenopathy Respiratory exam: Present: normal lung sounds bilaterally. Absent: respiratory distress, wheezes, rales, rhonchi, stridor Cardiovascular Exam: Present: regular rate, normal rhythm, normal heart sounds. Absent: systolic murmur, diastolic murmur, rubs, gallop, clicks GI/Abdominal exam: Present: soft, normal bowel sounds. Absent: distended, tenderness, guarding, rebound, rigid Extremities exam: Present: normal inspection, full ROM, normal capillary refill. Absent: tenderness, pedal edema, joint swelling, calf tenderness Back exam: Present: normal inspection Neurological exam: Present: alert, oriented X3, CN II-XII intact Psychiatric exam: Present: normal affect, normal mood Skin exam: Present: warm, dry, intact, normal color. Absent: rash Course Vital Signs 09/17/24 09/18/24 09/18/24 21:49 03:30 05:52 Temperature 97.8 F Pulse Rate 118 H 65 97 Respiratory 18 20 18 Rate Blood Pressure 149/103 111/70 112/75 O2 Sat by Pulse 95 94 L 98 Oximetry 09/18/24 07:20 Temperature 98.3 F Pulse Rate 80 Respiratory 16 Rate Blood Pressure 113/81 O2 Sat by Pulse 96 Oximetry - Reevaluation(s) Reevaluation #1: 09/17/24 23:20 Records reviewed Reevaluation #2: 09/18/24 01:42 Patient remains severely intoxicated here in the ER Reevaluation #3: 09/18/24 01:42 Patient informed of results questions answered Reevaluation #4: Was pt. sent in by a medical professional or institution (, PA, MORTGAGE UNDERWRITER, urgent care, hospital, or [place] [facility] facility...) When possible be specific @ -no Did you speak to anyone other than the patient for history (EMS, parent, family, police, friend...)? What history was obtained from this source @ -no Did you review nursing and triage notes (agree or disagree)? Why? @ -agree Are old charts reviewed (outside hosp., previous admission, EMS record, old EKG, old radiological studies, urgent care reports/EKG's, [place] [facility] records)? Report findings @ -yes Differential Diagnosis (chest pain, altered mental status, abdominal pain women, abdominal pain men, vaginal bleeding, weakness, fever, dyspnea, syncope, headac he, dizziness, GI bleed, back pain, seizure, CVA, palpatations, mental health, musculoskeletal)? @ -prior EKG interpreted by me (3pts min.). @ -no X-rays interpreted by me (1pt min.). @ -no CT interpreted by me (1pt min.). @ -no U/S interpreted by me (1pt. min.). @ -no What testing was considered but not performed or refused? (CT, X-rays, U/S, labs)? Why? @ -none What meds were considered but not given or refused? Why? @ -none Did you discuss the management of the patient with other professionals (professionals i.e. , PA, MORTGAGE UNDERWRITER, lab, RT, psych nurse, social media senior associate, clinical research monitor, teacher, adult parole officer, family caseworker)? Give summary @ -no Was smoking cessation discussed for >3mins.? @ -no Was critical care preformed (if so, how long)? @ -no Were there social determinants of health that impacted care today? How? (Homelessness, low income, unemployed, alcoholism, drug addiction, transpo rtation, low edu. Level, literacy, decrease access to med. care, correction, rehab)? @ -none Was there de-escalation of care discussed even if they declined (Discuss DNR or withdrawal of care, Hospice)? DNR status @ -no What co-morbidities impacted this encounter? (DM, HTN, Smoking, COPD, CAD, Cancer, CVA, ARF, Chemo, Hep., AIDS, mental health diagnosis, sleep apnea, morbid obesity)? @ -none Was patient admitted / discharged? Hospital course, mention meds given and route, prescriptions, significant lab abnormalities, going to OR and other pertinent info. @ - 29 male will be admitted for severe alcohol intoxication need for pending alcohol withdrawal and further help with psychiatric illness Admitted alcohol intoxication with withdrawal pending, psychiatric illness and depression Undiagnosed new problem with uncertain prognosis? @ -no Drug Therapy requiring intensive monitoring for toxicity (Heparin, Nitro, Insulin, Cardizem)? @ -no Were any procedures done? @ -no Diagnosis/symptom? @ - Acute, or Chronic, or Acute on Chronic? @ -Acute Uncomplicated (without systemic symptoms) or Complicated (systemic symptoms)? @ -Complicated Side effects of treatment? @ -no Exacerbation, Progression, or Severe Exacerbation? @ -exacerbation Poses a threat to life or bodily function? How? (Chest pain, [place], [place], pneumonia, PE, COPD, DKA, ARF, appy, cholecystitis, CVA, Diverticulitis, Homicidal, Suicidal, threat to staff... and all critical care pts) @ -no Reevaluation #5: Differential Altered Mental Status: Hypoglycemia, DKA, hypercapnia, ETOH, overdose, CO poisoning, trauma, myxedema coma, HTN encephalopathy, infection, encephalitis, psychosis, intercranial hemorrhage, hepatic encephalopathy, meningitis, CVA, this is not meant to be an all-inclusive list - Consultations Consultation #1: Spoke with [facility] who agrees to admit this patient Medical Decision Making - Medical Decision Making 29 male will be admitted for severe alcohol intoxication need for pending alcohol withdrawal and further help with psychiatric illness - Lab Data Result diagrams: 09/19/24 06:27 09/19/24 06:27 Lab Results 09/17/24 09/17/24 Range/Units 22:21 22:21 WBC 7.70 (4.50-10.00) 10*3/uL RBC 5.76 H (4.40-5.60) 10*6/uL Hgb 16.3 (13.0-17.0) g/dL Hct 48.2 (39.6-50.0) % MCV 83.7 (80.0-97.0) fL MCH 28.3 (27.0-32.0) pg MCHC 33.8 (32.0-37.0) g/dL Plt Count 464 H (140-440) 10*3/uL MPV 11.2 (9.5-12.2) fL Immature Gran % (Auto) 0.3 % Neutrophils % 49.9 % Lymphocytes % 40.8 % Monocytes % 7.0 % Eosinophils % 0.3 % Basophils % 1.7 % Immature Gran # 0.02 (0.00-0.04) 10*3/uL Neutrophils # 3.85 (1.80-7.70) 10*3/uL Lymphocytes # 3.14 (0.90-5.00) 10*3/uL Monocytes # 0.54 (0.20-1.00) 10*3/uL Eosinophils # 0.02 L (0.04-0.35) 10*3/uL Basophils # 0.13 H (0.00-0.10) 10*3/uL Sodium 144 (137-145) mmol/L Potassium 4.1 (3.5-5.1) mmol/L Chloride 103 (98-107) mmol/L Carbon Dioxide 22 (22-30) mmol/L Anion Gap 19 mmol/L BUN 9 (9-20) mg/dL Creatinine 0.83 (0.66-1.25) mg/dL Est GFR (CKD-EPI)AfAm >90 (>60 ml/min/1.73 sqM) Est GFR (CKD-EPI)NonAf >90 (>60 ml/min/1.73 sqM) Glucose 101 H (74-99) mg/dL Calcium 9.3 (8.4-10.2) mg/dL Phosphorus 3.8 (2.5-4.5) mg/dL Magnesium 1.9 (1.6-2.3) mg/dL Total Bilirubin 0.9 (0.2-1.3) mg/dL AST 67 H (17-59) U/L ALT 53 H (4-49) U/L Alkaline Phosphatase 103 (38-126) U/L Total Protein 8.1 (6.3-8.2) g/dL Albumin 4.8 (3.5-5.0) g/dL Lipase 188 (23-300) U/L Serum Alcohol 364 H* mg/dL Disposition Clinical Impression: Alcohol withdrawal delirium, Alcohol use disorder, Alcohol withdrawal, Major depressive disorder, Anxiety disorder Disposition: ADMITTED IP TO THIS HOSP Condition: Fair Is patient prescribed a controlled substance at d/c from ED?: No Time of Disposition: 00:00
[2024-09-17 22:45] LABS: Basophils # (A) 0.13 10*3/uL (0.00-0.10); Basophils % (A) 1.7 %; Eosinophils # (A) 0.02 10*3/uL (0.04-0.35); Eosinophils % (A) 0.3 %; HCT 48.2 % (39.6-50.0); HGB 16.3 g/dL (13.0-17.0); Lymphocytes # (A) 3.14 10*3/uL (0.90-5.00); Lymphocytes % (A) 40.8 %; MCH 28.3 pg (27.0-32.0); MCHC 33.8 g/dL (32.0-37.0); MCV 83.7 fL (80.0-97.0); Mean Platelet Volume 11.2 fL (9.5-12.2); Monocytes # (A) 0.54 10*3/uL (0.20-1.00); Neutrophils # (A) 3.85 10*3/uL (1.80-7.70); Neutrophils % (A) 49.9 %; Platelet Count 464 10*3/uL (140-440); RBC 5.76 10*6/uL (4.40-5.60); RDW 15.2 % (11.5-14.5)
[2024-09-17] MEDS: SODIUM CHLORIDE 0.9% 1,000 ML IV STA (22:49)
[2024-09-17] MEDS: SODIUM CHLORIDE 0.9% 500 ML 500 ML IV STA (22:49)
[2024-09-17] MEDS: LORazepam 2 MG/ML INJ IV STA (22:50)
[2024-09-17 23:16] LABS: AST 67 U/L (17-59); African American GFR (CKD) >90 (>60 ml/min/1.73 sqM); Albumin 4.8 g/dL (3.5-5.0); Alkaline Phosphatase 103 U/L (38-126); Blood Urea Nitrogen 9 mg/dL (9-20); Carbon Dioxide 22 mmol/L (22-30); Chloride 103 mmol/L (98-107); Glucose 101 mg/dL (74-99); Lipase 188 U/L (23-300); Non-African American GFR(CKD) >90 (>60 ml/min/1.73 sqM); Phosphorus 3.8 mg/dL (2.5-4.5); Total Bilirubin 0.9 mg/dL (0.2-1.3); Total Protein 8.1 g/dL (6.3-8.2)
[2024-09-18 00:10] LABS: ALT 53 U/L (4-49); Anion Gap 19 mmol/L; Calcium 9.3 mg/dL (8.4-10.2); Magnesium 1.9 mg/dL (1.6-2.3); Potassium 4.1 mmol/L (3.5-5.1); Sodium 144 mmol/L (137-145)
[2024-09-18 00:19] LABS: Alcohol 364 mg/dL
[2024-09-18] MEDS ORDERED: NALOXONE 0.4 MG/ML 1 ML VIAL IV PRN (00:23)
[2024-09-18] MEDS: DEXTROSE 5%-0.45% NACL 1,000 ML IV SCH (01:39)
[2024-09-18] MEDS: SODIUM CHLORIDE 0.9% 1,000 ML IV STA (01:47)
--- NOTE | 2024-09-18 09:00 | P.CN ---
Psychiatric Consult - . Consult date: 09/18/24 Consult:: 09/18/24 08:42 IDENTIFYING DATA: This patient is a 29-year-old male, unemployed and living with his mother REASON FOR REFERRAL: Psychiatry was consulted for Alcohol use disorder/Depression HISTORY OF PRESENT ILLNESS: The patient presented to the ER requesting detoxification from alcohol. Upon admission patient's blood alcohol was 364. Meeting with the patient he notes that he has been drinking since the age of 22 roughly 5th a day. He notes that he has also been smoking cannabis on a regular basis. He notes that he uses these for self medication specifically for anxiety. He notes when he does go through withdrawals and has shakes, insomnia and sweats but denies any seizures or DTs. 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 The patient notes that he has been struggling with anxiety for a large part of his life. He notes that when he gets out into public he gets palpitations and extremely anxious. This has prevented him from getting a jobs. 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 His mother notes that he stays mainly inside t he house and avoids people. Additionally, he suffers from chronic worries, jaw tightness, muscle tension, problems initiating sleep and nausea. He currently rates his depression 7/10 and his anxiety 10/10 with 10 being worst. He notes on average he only gets 3 to 4 hours of sleep at night. He notes low energy, appetite, and concentration. He suffers from feelings of helplessness. He notes bouts of crying and guilt and shame. He denies any suicidal or homicidal ideations. He denies any access to guns. Review of psychiatric systems: Negative for bipolar disorder, PTSD and psychosis. He does note that he hit his head and for 3 days he heard a voice this is the only time that this has happened. He notes that he does have to have things in a particular spot and makes them move them back where the spot was. PAST PSYCHIATRIC HISTORY: Patient has a a history of Anxiety and depression. He has been on Celexa, Trileptal and other psychiatric medications. He has 1 prior hospitalization because expressing suicidal thoughts. He currently does not follow-up for outpatient. He denies any prior suicide attempts. He denies any physical, verbal, or sexual abuse in childhood. PAST MEDICAL HISTORY: Review the EMR ALLERGIES: Dog dandruff CHEMICAL DEPENDENCY HISTORY: Alcohol review the above HPI Cannabis review the above HPI FAMILY PSYCHIATRIC/SUBSTANCE USE HISTORY: When asking about family history of mental illness and substance abuse he notes "a lot". SOCIAL HISTORY: Patient was born and raised in [place] and notes that his childhood was "fine". He notes that he dropped out high school but later went back to community college. The patient is currently not in a relationship and lives with his mother and brother. He notes that he has never been gainfully employed. He notes that he is spiritual. He denies any service. MENTAL STATUS EXAM: General Appearance: Patient appears to be stated age is alert, pleasant, and cooperative. Patient appears to have fair hygiene and grooming wearing hospital gown with fair eye contact. Behavior: Patient is calmly lying in bed without any agitated behavior. Speech: Patient's speech is fluent and nonpressured. Mood/Affect: Patient reports their mood is "depressed" and anxious, affect is congruent Suicidality/Homicidality: Patient denies having any suicidal or homicidal ideation intent or plan. Perceptions: Patient denies any visual hallucinations and denies any auditory hallucinations Though content/process: There is no evidence of any delusional thought content and thought process is linear and goal-directed. Memory and concentration: AOX3, grossly intact for the purposes of this session. Can spell "WORLD" backwards Judgment and insight: Fair Diagnosis: Alcohol use disorder severe Alcohol withdraw Cannabis use disorder moderate Social anxiety disorder Major depressive disorder recurrent moderate Generalized anxiety disorder Assessment: 29-year-old male presenting to the ER due to request for detoxification for alcohol. Per interviewing the patient there is a significant history of self- medicating with alcohol and cannabis due to a result of his social anxiety disorder. Additionally he suffers from depression as well as generalized anxiety disorder. Patient has no prior history of DTs or seizures but with the blood alcohol of over 350 will require inpatient detoxification. Additionally the patient needs to stop drinking and engaging and trying to tackle his social anxiety disorder. Patient did not voice any suicidal thoughts and per his mother he was extremely intoxicated several days ago when he did voice it. It is felt that there are no imminent risk towards the patient harming himself at this point. Medication management is advised. Additionally upon ready for discharge rehab might be preferred. PLAN: -At this time patient DOES NOT meet criteria for inpatient psychiatric admission. -Will prescribe the following medication changes/additions: Zoloft 50 mg take 1 tablet by mouth once daily for depression/alcoholic depression/social anxiety disorder/generalized anxiety disorder. Patient's been explained the risk and benefits of the medication. Naltrexone 50 mg take 1 tablet by mouth once daily for alcohol -CIWA protocol with PRN Ativan for alcohol withdrawal. Continue to monitor vital signs. -elementary school social worker to provide patient with outpatient mental health/psychiatry resources for appropriate follow up upon discharge -Acid Etch Operator spoke with patient about substance abuse and the harmful effects on medical and mental health, patient verbally understood and agreed. -elementary school social worker to provide patient substance use treatment resources including AA/NA meetings in the community. -elementary school social worker to provide patient with access line number to call for inpatient substance rehab -Communicated plan to patient's nurse -Will continue to follow along -Please contact with any questions.
[2024-09-18] MEDS: LORazepam 1 MG TAB PO PRN ×2 (09:24→16:14)
[2024-09-18] MEDS: THIAMINE 100 MG TAB PO SCH (09:24)
[2024-09-18] MEDS: MULTIVITAMINS, THERA 1 EACH TAB PO SCH (09:24)
[2024-09-18] MEDS: FOLIC ACID 1 MG TAB PO SCH (09:24)
[2024-09-18] MEDS: ONDANSETRON 4 MG/2 ML VIAL IVP PRN (10:28)
[2024-09-18] MEDS: HEPARIN SODIUM,PORCINE 5,000 UNIT/ML 1 ML VIAL SQ SCH (16:14)
[2024-09-18] MEDS: SERTRALINE 50 MG TAB PO SCH (21:15)
--- NOTE | 2024-09-18 21:26 | P.HPIM ---
History of Present Illness H&P Date: 09/18/24 Chief Complaint: Alcohol intoxication Patient is a 29-year-old male with a known history of EtOH abuse, and occasional marijuana use. Patient was brought to ER due to severe alcohol intoxication. Patient does not drink fifth of liquor daily and also occasional marijuana use. Patientadmitted hospital for alcohol withdrawal symptoms. Patient also complaining of anxiety. Patient also thinks that he needs to cut down and also gets annoyed when people ask him to stop drinking. Denies any chest pain or shortness of breath. No nausea vomiting abdominal pain or diarrhea. Laboratory data showed WBC 7.7 hemoglobin 16.3 and platelets 464, sodium 144 potassium 4.1 chloride 103 bicarb is 22 BUN 9 and creatinine 0.83 and blood sugar 101 AST 61 ALT 53 and alk phos 103 and serum alcohol level is 364 lipase level 188 Review of Systems Complete review of systems could not be obtained from the patient except as per HPI Past Medical History Past Medical History: GERD/Reflux Additional Past Medical History / Comment(s): ETOH abuse with withdrawals (tremors/abdominal pain), past elevated LFTs, History of Any Multi-Drug Resistant Organisms: None Reported Past Surgical History: Hernia Repair, Orthopedic Surgery Additional Past Surgical History / Comment(s): right arm surgery for severed nerve, hernia repair as a child, 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 He is independent. Pt has gone into rehab several times and was to go to rehab 02/15/20 but staff concerned about tremors. Pt has depression and has had suicidal thoughts/ideations in the past but states none in past couple weeks. Smoking Status: Never smoker Past Alcohol Use History: Abuse, Daily, Heavy Additional Past Alcohol Use History / Comment(s): Pt states he drinks 1/5 liqour a day and last drink 06/15/23 Past Drug Use History: Marijuana Additional Drug Use History / Comment(s): Occasional marijuana use. - Past Family History Mother Family Medical History: Diabetes Mellitus Additional Family Medical History / Comment(s): family history on maternal side of diabetes Father Additional Family Medical History / Comment(s): Pt has never met his father but knows that he is an alcoholic and agoraphobic. Medications and Allergies Home Medications Medication Instructions Recorded Confirmed Type No Known Home Medications 09/18/24 09/18/24 History Allergies Allergy/AdvReac Type Severity Reaction Status Date / Time cat dander Allergy Rash/Hives Verified 09/18/24 06:56 Physical Exam Vitals: Vital Signs Temp Pulse Pulse Resp BP BP Pulse Ox 09/18/24 09:30 97.4 F L 91 16 158/99 98 09/18/24 08:58 97.4 F L 91 16 98 09/18/24 07:20 98.3 F 80 16 113/81 96 09/18/24 05:52 97 18 112/75 98 09/18/24 03:30 65 20 111/70 94 L 09/17/24 21:49 97.8 F 118 H 18 149/103 95 Intake and Output 09/17/24 09/18/24 09/18/24 22:59 06:59 14:59 Other: Voiding Method Toilet Weight 88.451 kg 88.451 kg PHYSICAL EXAMINATION: Patient is lying in the bed comfortably, no acute distress, awake alert but lethargic and drowsy. HEENT: Normocephalic. Neck is supple. Pupils reactive. Nostrils clear. Oral cavity is moist. Neck reveals no JVD, carotid bruits, or thyromegaly. CHEST EXAMINATION: Trachea is central. Symmetrical expansion. Lung keating clear to auscultation and percussion. CARDIAC: Normal S1, S2 with no gallops. No murmurs ABDOMEN: Soft. Bowel sounds normal. No organomegaly. No abdominal bruits. Extremities: reveal no edema. No clubbing or cyanosis Neurologically awake, alert, oriented x3 able to move all extremities. No gross focal deficits noted Skin: No rash or skin lesions. Psychiatric: Coperative. Could not be assessed completely Musculoskeletal: No joint swelling or deformity. Results CBC & Chem 7: 09/17/24 22:21 09/17/24 22:21 Labs: Abnormal Lab Results - Last 24 Hours (Table) 09/17/24 09/17/24 Range/Units 22:21 22:21 RBC 5.76 H (4.40-5.60) 10*6/uL Plt Count 464 H (140-440) 10*3/uL Eosinophils # 0.02 L (0.04-0.35) 10*3/uL Basophils # 0.13 H (0.00-0.10) 10*3/uL Glucose 101 H (74-99) mg/dL AST 67 H (17-59) U/L ALT 53 H (4-49) U/L Serum Alcohol 364 H* mg/dL Thrombosis Risk Factor Assmnt - DVT/VTE Prophylaxis DVT/VTE Prophylaxis: Pharmacologic Prophylaxis ordered - Choose All That Apply Any of the Below Risk Factors Present?: No Assessment and Plan Assessment: Acute alcohol intoxication Mild transaminitis/alcoholic hepatitis Social anxiety disorder Major depressive disorder History of alcohol withdrawal symptoms Marijuana use disorder GI DVT prophylaxis with PPI and heparin subcu. Plan: Patient will be continued on IV hydration with D5 half-normal saline at 100 cc/h. Continue with multivitamins and thiamine and continue with alcohol withdrawal protocol. Patient was started on Zoloft as per psychiatry recommendations. Monitor for alcohol withdrawal symptoms and follow-up closely.
[2024-09-19 06:49] LABS: Basophils # (A) 0.07 10*3/uL (0.00-0.10); Basophils % (A) 1.3 %; Eosinophils # (A) 0.13 10*3/uL (0.04-0.35); Eosinophils % (A) 2.4 %; HCT 43.8 % (39.6-50.0); HGB 14.8 g/dL (13.0-17.0); Lymphocytes # (A) 1.15 10*3/uL (0.90-5.00); Lymphocytes % (A) 20.8 %; MCH 28.6 pg (27.0-32.0); MCHC 33.8 g/dL (32.0-37.0); MCV 84.6 fL (80.0-97.0); Mean Platelet Volume 11.2 fL (9.5-12.2); Monocytes # (A) 0.71 10*3/uL (0.20-1.00); Monocytes % (A) 12.9 %; Neutrophils # (A) 3.45 10*3/uL (1.80-7.70); Neutrophils % (A) 62.4 %; Platelet Count 316 10*3/uL (140-440); RBC 5.18 10*6/uL (4.40-5.60); RDW 14.6 % (11.5-14.5); WBC 5.52 10*3/uL (4.50-10.00)
[2024-09-19 06:59] LABS: ALT 50 U/L (4-49); AST 62 U/L (17-59); African American GFR (CKD) >90 (>60 ml/min/1.73 sqM); Alkaline Phosphatase 76 U/L (38-126); Anion Gap 8 mmol/L; Blood Urea Nitrogen 5 mg/dL (9-20); Calcium 9.3 mg/dL (8.4-10.2); Carbon Dioxide 25 mmol/L (22-30); Chloride 100 mmol/L (98-107); Glucose 92 mg/dL (74-99); Magnesium 1.7 mg/dL (1.6-2.3); Non-African American GFR(CKD) >90 (>60 ml/min/1.73 sqM); Phosphorus 2.7 mg/dL (2.5-4.5); Potassium 3.9 mmol/L (3.5-5.1); Sodium 133 mmol/L (137-145); Total Bilirubin 1.5 mg/dL (0.2-1.3); Total Protein 6.8 g/dL (6.3-8.2)
--- NOTE | 2024-09-19 08:27 | P.CN ---
Psychiatric Consult - . Consult date: 09/19/24 Consult:: 09/19/24 08:22 Interval History: Patient was seen seen in the observation unit lying in bed. Patient denies any ongoing cravings at this time but notes that he is going through withdrawal. He notes that he has chills, shakes and sweating. It is noted that the patient's highest CIWA score was 13 he has received 2 doses of Ativan. He denies any side effects with the newly started Zoloft. He notes that his depression is fair and his anxiety is severe. He notes that he slept well but he has no energy, appetite or concentration. He denies ongoing suicidal thoughts. We discussed discharge and reinforcement of following up with mental health to address his socialize anxiety disorder in order to help with self-medicating with alcohol. Mental Status Exam: General Appearance: Patient appears to be stated age is alert, directable, and cooperative. Behavior: Patient was lying in bed having tremors and looked sweaty. He was slightly anxious Speech: Patient's speech is fluent and nonpressured. Mood/Affect: Mood is improving mildly, affect is congruent and constricted. Suicidality/Homicidality: Patient denies having any suicidal or homicidal ideation intent or plan. Perceptions: Patient denies any visual hallucinations and denies any auditory hallucinations Though content/process: There is no evidence of any delusional thought content and thought process is linear and goal-directed. Memory and concentration: AOX3, grossly intact for the purposes of this session Judgment and insight: Improving mildly Diagnosis: Alcohol use disorder severe Alcohol withdraw Cannabis use disorder moderate Social anxiety disorder Major depressive disorder recurrent moderate Generalized anxiety disorder Assessment: 29-year-old male presenting to the ER due to request for detoxification for alcohol. The patient appears to be willing to engage in outpatient services for alcohol and mental health it is essential that these are set up prior to discharge otherwise more likely the patient will not set these up. PLAN: -At this time patient DOES NOT meet criteria for inpatient psychiatric admission. - Medications (please prescribe 30 days at discharge of these medications to the patient) Zoloft 50 mg take 1 tablet by mouth once daily for depression/alcoholic depression/social anxiety disorder/generalized anxiety disorder. Naltrexone 50 mg take 1 tablet by mouth once daily for alcohol -CIWA protocol with PRN Ativan for alcohol withdrawal. Continue to monitor vital signs. -curtain worker to provide patient with outpatient mental health/psychiatry resources for appropriate follow up upon discharge (if possible get the patient an appointment at [facility] prior to discharge) -Delivery Representative spoke with patient about substance abuse and the harmful effects on medical and mental health, patient verbally understood and agreed. -curtain worker to provide patient substance use treatment resources including AA/NA meetings in the community. -curtain worker to provide patient with access line number to call for inpatient substance rehab -Communicated plan to patient's nurse -Will continue to follow along -Please contact with any questions.
[2024-09-19 09:07] VITALS: BP 153/93; PULSE 92; RESP 18; TEMP 98.2
[2024-09-19] MEDS: NALTREXONE HCL 50 MG TAB PO SCH (09:48)
== END 2024-09-19 12:16 ==
LOC: EC 21:48 → 6NMEDSUR 09-18 00:25 → 1SOBS 09-18 04:21
PROVIDERS: ADMIT Hospitalist; ATTEND Hospitalist
DX: F10.231 Alcohol dependence with withdrawal delirium (principal); F10.220 Alcohol dependence with intoxication, uncomplicated; Y90.8 Blood alcohol level of 240 mg/100 ml or more; K21.9 Gastro-esophageal reflux disease without esophagitis; F12.20 Cannabis dependence, uncomplicated; F33.1 Major depressive disorder, recurrent, moderate; K70.10 Alcoholic hepatitis without ascites; F40.10 Social phobia, unspecified; F41.1 Generalized anxiety disorder
CPT/HCPCS: 96372 ×2; 96375; 96374; 99285; 36415; 80053 ×2; 83690; 83735 ×2; 84100 ×2; 85025 ×2; G0378 ×2; G0480; J2060; J1644 ×2; J2405; 80320